=== PATIENT | male | born 1970 | race Two or more races ===

== ENCOUNTER 2024-12-26 07:54 | Inpatient (IN) | payer MEDICAID, SELFPAY ==
[2024-12-26] VITALS (58 sets, daily range): BP systolic 88–168; BP diastolic 64–111; PULSE 90–143; RESP 18–95; TEMP 36.2–40; O2SAT 91–97; BMI 28.3
--- NOTE | 2024-12-26 07:59 | XR_ITS ---
Examination: CT abdomen with intravenous contrast CT pelvis with intravenous contrast 2-D coronal reconstructions 2-D sagittal reconstructions Date and time of exam:December 26, 2024, 1019 hours, comparison June 20, 2023 INDICATIONS: Generalized abdominal pain and constipation beginning 4 days ago.. CTDI: vol (mGy) 7.99 DLP: (mGycm) 523 Technique: Multiple axial sections of the abdomen and pelvis have been obtained. 64 slice high-resolution scanner used. 3 mm axial sections have been obtained, post intravenous injection 60 cc Isovue-370 2-D sagittal, coronal reconstructions obtained. Low dose protocols were performed. One or more of the following dose reduction techniques were used; automated exposure control, adjustment of the mA and/or KV according to patient size, use of iterative reconstruction technique. Findings: No focal liver lesions Absent gallbladder No splenic or pancreatic mass. Normal adrenal glands. No renal or ureteral calculi, no hydronephrosis Markedly inflamed terminal ileum, coronal image 68 extending to the cecum with inflammation in the cecum No bowel obstruction There is partial visualization of the appendix but incomplete Additional ileal loop show inflammation No bowel obstruction Atrophic uterus Urinary bladder wall thickening which is irregular and measures up to 20 mm on axial image 226 Severe osteopenia IMPRESSION: Severe inflammation of the ileum especially the terminal ileal segment, highest on the differential list would be ileitis such as severe Crohn's disease Abnormal urinary bladder with irregular wall thickening inferiorly and posteriorly, differential would include cystitis, early bladder cancer not excluded, recommend urinary bladder sonography follow-up
--- NOTE | 2024-12-26 08:29 | EKG_ITS ---
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1970 Requested By: Soraya Rocha Order Number: [id number] Reading MD: Soraya Rocha Measurements Intervals [place] Rate: 141 P: MO: QRS: -29 QRSD: 85 T: 83 QT: 289 QTc: 443 Interpretive Statements ATRIAL FLUTTER/TACHYCARDIA WITH RAPID VENTRICULAR RESPONSE BORDERLINE LEFT AXIS DEVIATION [QRS AXIS < -20] ST ELEVATION, CONSIDER INFERIOR INJURY [MARKED ST ELEVATION W/O NORMALLY INFLECTED T-WAVE IN II/aVF] ACUTE GA Compared to ECG 06/22/2023 10:54:32 Myocardial infarct finding now present Sinus tachycardia no longer present Left ventricular hypertrophy no longer present ST (T wave) deviation still present /store/S0/[id number].pdf
[2024-12-26] MEDS: MORPHINE SULF INJ 10 MG/ML VIAL 5 MG IVP (08:45)
[2024-12-26] MEDS: ONDANSETRON INJ 2 MG/ML INJ 2 ML 4 MG IVP (08:45)
[2024-12-26 08:58] LABS: Basophils # (Auto) 0.0 Thou/mm3 (0.0-0.2); Basophils % (Auto) 0 % (0-2.5); Eosinophils # (Auto) 0.0 Thou/mm3 (0.0-0.5); Eosinophils % (Auto) 0 % (0-10); Hematocrit 51.6 % (41.0-53.0); Hemoglobin 16.9 g/dL (13.5-16.0); Immature Granulocytes Auto 0.10 Thou/mm3 (0.00-0.00); Lymphocytes # (Auto) 0.6 Thou/mm3 (1.0-4.8); Lymphocytes % (Auto) 3 % (10-50); Mean Corpuscular HGB Conc 32.8 g/dl (31.0-37.0); Mean Corpuscular Hemoglobin 26.2 pg (25.0-35.0); Mean Corpuscular Volume 80 fL (80-100); Monocytes # (Auto) 0.6 Thou/mm3 (0.0-0.8); Monocytes % (Auto) 3 % (0-12); Neutrophils # (Auto) 16.7 Thou/mm3 (1.8-7.7); Neutrophils % (Auto) 93 % (37-80); Nucleated Red Blood Cell # 0.00 Thou/mm3 (0.00-0.00); Nucleated Red Blood Cell % 0 /100 WBC (0); Platelet Count 250 Thou/mm3 (140-440); RDW Standard Deviation 39.9 fL (35.1-43.9); Red Blood Count 6.45 Miln/mm3 (4.50-5.90); White Blood Count 18.0 Thou/mm3 (3.8-10.6)
[2024-12-26 09:00] LABS: Lactate (Lactic Acid) 6.0 mMol/L (0.4-2.0)
[2024-12-26] MEDS: SODIUM CHLORIDE 0.9% 1000 ML 1,000 ML 999 ML IV ×2 (09:12→11:13)
[2024-12-26 09:22] LABS: Alanine Aminotransferase 25 U/L (10-49); Albumin, Serum 4.8 gm/dL (3.5-5.0); Albumin/Globulin Ratio 1.5 (1.2-2.2); Alkaline Phosphatase 127 U/L (46-116); Anion Gap 18 (7-16); Aspartate Amino Transferase 23 U/L (0-34); BUN/Creatinine Ratio 14 Ratio (12-20); Bilirubin,Total 1.4 mg/dL (0.3-1.2); Blood Urea Nitrogen 14 mg/dL (9-23); Calcium 10.2 mg/dL (8.3-10.6); Calcium (Corrected) 10.2 mg/dL (8.5-10.1); Carbon Dioxide 19.8 mMol/L (20.0-31.0); Chloride 99 mMol/L (98-107); Creatinine (Component) 1.0 mg/dL (0.6-1.3); Estimated Creatinine Clearance 88.3 mL/min (>60); Globulin 3.3 gm/dL (2.3-3.5); Glucose 366 mg/dL (74-106); Lipase 18 U/L (12-53); Magnesium 2.1 mg/dL (1.6-2.6); Osmolality,Calculated 289 (275-295); Potassium 4.0 mMol/L (3.4-5.1); Sodium 137 mMol/L (136-145); Total Protein 8.1 gm/dL (5.7-8.2); Troponin I 0.023 ng/mL (0.0-0.045); eGFR > 60 See Note
[2024-12-26 09:27] LABS: B-Type Natriuretic Peptide 149 pg/mL (0-100)
--- NOTE | 2024-12-26 09:46 | PD.EDABDPN ---
ED Abdominal Pain RME/HPI General Chief Complaint: Abdominal Pain Stated complaint: CONSTIPATION Time seen by provider: 12/26/24 07:59 Arrival date/time: 12/26/24 07:54 RME / HPI RME / HPI narrative: 54 year old male with history of hemorrhagic CVA with residual left-sided weakness, seizures, hypertension, diabetes, small bowel obstruction presents to the ED [facility] from [facility] for evaluation of constipation beginning 4 days ago. Per medics, [facility] staff state the patient has not had a bowel movement for 4 days and given laxatives without relief; they are concerned he may have a bowel obstruction. In the ED, patient reports mid abdominal pain with distention beginning 2 days ago. Accompanied by nausea and vomiting. Denies fevers, chills, chest pain, cough, shortness of breath, or urinary symptoms. Related Data Home Medications ?Medication ?Instructions ?Recorded ?Confirmed acetaminophen 325 mg tablet 2 tab PO Q6HR PRN Pain 12/21/17 06/25/23 (Tylenol) bisacodyl 10 mg rectal suppository 10 mg FL Q72H PRN Constipation 12/21/17 06/25/23 (Dulcolax (bisacodyl)) cholecalciferol (vitamin D3) 75 25 mcg PO QDAY 12/21/17 06/25/23 mcg (3,000 unit) tablet clonidine HCl 0.3 mg tablet 0.3 mg PO TID 12/21/17 06/25/23 Held on 06/29/23. Instructions: untill you see primary care physician folic acid 1 mg tablet 1 mg PO QDAY 12/21/17 06/25/23 insulin glargine 100 unit/mL 31 unit subcut QPM 12/21/17 06/25/23 subcutaneous solution lactulose 10 gram/15 mL oral 10 mg PO QDAY PRN Constipation 12/21/17 06/25/23 solution losartan 50 mg tablet 50 mg PO QDAY 12/21/17 06/25/23 magnesium hydroxide 400 mg/5 mL 30 ml PO Q72H PRN Constipation 12/21/17 06/25/23 oral suspension (Milk of Magnesia) melatonin 3 mg tablet 3 mg PO HS 12/21/17 06/25/23 multivitamin with minerals 1 tab PO QDAY 12/21/17 06/25/23 sennosides 8.6 mg-docusate sodium 2 tab PO BID PRN Constipation 12/21/17 06/25/23 50 mg tablet sodium phosphates 19 gram-7 118 ml FL Q72H PRN Constipation 12/21/17 06/25/23 gram/118 mL enema (Fleet Enema) thiamine HCl (vitamin B1) 100 mg 100 mg PO QDAY 12/21/17 06/25/23 tablet (Vitamin B-1) insulin regular human 100 unit/mL 4 unit subcut TID 06/25/23 06/25/23 injection solution (Novolin R Regular U-100 Insulin) insulin regular human 100 unit/mL See Rx Instructions .Route .COMPLEX 06/25/23 06/25/23 injection solution (Novolin R Regular U-100 Insulin) Previous Rx's ?Medication ?Instructions ?Recorded levetiracetam 1,000 mg tablet 1,000 mg PO BID #7 tabs 11/05/18 (Keppra) amlodipine 5 mg tablet 10 mg (2 x 5 mg) PO QDAY #30 tabs 06/29/23 Allergies Allergy/AdvReac Type Severity Reaction Status Date / Time adenosine Allergy Mild Rash Verified 12/26/24 08:19 vancomycin AdvReac Intermediate Redness of Verified 12/26/24 08:19 Skin Review of Systems Review of Systems Systems Reviewed: All systems reviewed, normal except as documented Past Medical History Past Medical History NEUROLOGIC: Positive Cerebrovascular Accident and Seizures CARDIAC: Positive Hypertension GASTROINTESTINAL: Positive Gastrointestinal Disorders and Obstructive Bowel GENITOURINARY: Positive Genitourinary Disorders and Renal Disease (ckd) ENDOCRINE: Positive Diabetes Mellitus Type 2 Social History SMOKING STATUS: Never smoker SECOND HAND EXPOSURE: No SUBSTANCE USE: does not use ED Exam Narrative Physical exam: GENERAL APPEARANCE: alert and oriented x 4, well-developed, well-nourished HEENT: Normocephalic, atraumatic; pupils equal, round, reactive to light; EOMI; mucous membranes pink, moist; oropharynx clear NECK: Supple LUNGS: CTABL; no wheezes, no rales, no rhonchi HEART: Regular rate, regular rhythm; normal S1, S2; no murmurs ABDOMEN: distended; normal BS; soft, mid-abdominal tenderness, no guarding, no rebound; no masses, no organomegaly, no hernia BACK: no CVA tenderness EXTREMITIES: atraumatic; no edema NEUROLOGIC: awake; alert and oriented x4; cranial nerves II-XII grossly intact PSYCHIATRIC: appropriate mood and affect SKIN: warm, dry, normal color; no rashes Course Quality Measures none Orders Category Date Time Status CT Screening NOW Care 12/26/24 07:59 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 12/26/24 08:29 Active EKG (ED ONLY) *Do not use* NOW Care 12/26/24 08:29 Completed EKG (ED ONLY) *Do not use* NOW Care 12/26/24 14:[address] abdomen pelvis w con Stat Exams 12/26/24 07:59 Completed EKG (ED Only) Stat Exams 12/26/24 08:29 Draft EKG (ED Only) Stat Exams 12/26/24 14:42 Draft B-Type Natriuretic Peptide Stat Lab 12/26/24 08:38 Completed Beta Hydroxybutyrate Routine Lab 12/26/24 14:32 Completed Blood Culture (Lab) Stat Lab 12/26/24 09:26 Received CBC Stat Lab 12/26/24 08:38 Completed Comprehensive Metabolic Panel Stat Lab 12/26/24 08:38 Completed Lactate (Lactic Acid) Stat Lab 12/26/24 08:38 Completed Lactic Acid, 3 HR Stat Lab 12/26/24 12:19 Completed Lipase Stat Lab 12/26/24 08:38 Completed Magnesium Stat Lab 12/26/24 08:38 Completed Procalcitonin Stat Lab 12/26/24 09:26 Completed Troponin I Stat Lab 12/26/24 08:38 Completed Troponin I Stat Lab 12/26/24 14:32 Completed UA, C/S IF [Urinalysis, C/S if Indicated] Stat Lab 12/26/24 23:59 Ordered Acetaminophen Ivpb [Ofirmev Inj] Med 12/26/24 12:50 Discontinued 1,000 mg in 100 ml IV X1 Morphine Inj Med 12/26/24 08:29 Discontinued 5 mg IVP X1 ONE Ondansetron Inj [Zofran Inj] Med 12/26/24 08:29 Discontinued 4 mg IVP X1 ONE Piper/Tazo 3.375 gm Premix [Zosyn] Med 12/26/24 11:02 Discontinued 3.375 gm in 50 ml IV X1 Sodium Chloride 0.9% 1000 ml [Ns] 1,000 ml Med 12/26/24 09:04 Discontinued IV 999 mls/hr Sodium Chloride 0.9% 1000 ml [Ns] 1,000 ml Med 12/26/24 11:02 Discontinued IV 999 mls/hr Vital Signs Vital signs: Vital Signs Temperature 98.4 F 12/26/24 08:42 Pulse Rate 137 H 12/26/24 08:42 Respiratory Rate 20 12/26/24 08:42 Blood Pressure 158/101 H 12/26/24 08:42 Pulse Oximetry (%) 97 12/26/24 08:42 Oxygen Delivery Method Room Air 12/26/24 08:42 Pulse ox is 97% on room air which is adequate. Abdominal Pain MDM MDM Narrative MDM Narrative:: ISugey am scribing for and in the presence of Dr. Friedman. Repeat EKG @ 15:05h: Sinus tachycardia, rate 122, ST depression seen in previous ekg have resolved, slight ST elevation in lead III. Patient data External records reviewed:: [facility] previous records (I reviewed admission from 06/22/2023 through 06/29/2023 ), EMS form and Penitentiary records (I reviewed pmhx and medication list from [facility] ) Clinical information provided by:: patient and EMS Social determinants that could affect healthcare access:: housing ([place] resident ) Patient has the following chronic illnesses:: hemorrhagic CVA with residual left-sided weakness, seizures, hypertension, diabetes, small bowel obstruction How is presenting disease/condition affected by chronic disease/condition?: exacerbated by Evaluation data The following diagnostics were reviewed and interpreted by me:: lab results, radiology exam(s) and EKG tracing(s) (12/26/2204 @ 08:32 AM. Sinus tachycardia, rate 140, mild ST depression lead I aVL V4 through V6, ST depressions consisted with possible rate base ischemia, slight ST elevation in lead II. ) Lab and/or radiology exams considered but not ordered:: None Interpretation Summary: Ordering Physician: Soraya Friedman MD Date of Service: 12/26/24 Procedure(s): CT abdomen pelvis w con Accession Number(s): [id number] cc: Imtiaz Mac MD; NO PRIMARY/FAMILY,PHYSICIAN; Soraya Friedman MD~ Examination: CT abdomen with intravenous contrast CT pelvis with intravenous contrast 2-D coronal reconstructions 2-D sagittal reconstructions Date and time of exam:December 26, 2024, 1019 hours, comparison June 20, 2023 INDICATIONS: Generalized abdominal pain and constipation beginning 4 days ago.. CTDI: vol (mGy) 7.99 DLP: (mGycm) 523 Technique: Multiple axial sections of the abdomen and pelvis have been obtained. 64 slice high-resolution scanner used. 3 mm axial sections have been obtained, post intravenous injection 60 cc Isovue-370 2-D sagittal, coronal reconstructions obtained. Low dose protocols were performed. One or more of the following dose reduction techniques were used; automated exposure control, adjustment of the mA and/or KV according to patient size, use of iterative reconstruction technique. Findings: No focal liver lesions Absent gallbladder No splenic or pancreatic mass. Normal adrenal glands. No renal or ureteral calculi, no hydronephrosis Markedly inflamed terminal ileum, coronal image 68 extending to the cecum with inflammation in the cecum No bowel obstruction There is partial visualization of the appendix but incomplete Additional ileal loop show inflammation No bowel obstruction Atrophic uterus Urinary bladder wall thickening which is irregular and measures up to 20 mm on axial image 226 Severe osteopenia IMPRESSION: Severe inflammation of the ileum especially the terminal ileal segment, highest on the differential list would be ileitis such as severe Crohn's disease Abnormal urinary bladder with irregular wall thickening inferiorly and posteriorly, differential would include cystitis, early bladder cancer not excluded, recommend urinary bladder sonography follow-up Dictated By: Imtiaz Mac MD Signed By: <Electronically signed by Imtiaz Mac MD in [place]> 12/26/24 1109 Medications / Prescriptions Medications or Prescriptions considered but not ordered:: None Medication administrations:: Medication Administration History Acetaminophen (Acetaminophen 325 Mg Tablet) 650 mg PO Q6H PRN PRN Reason: Fever >101.5 and pain (1-3) Stop: 01/25/25 15:17 Dextrose (Dextrose 50%-Water Inj 50 Ml Syringe) 25 ml IV Q15MIN PRN PRN Reason: BG 50-70 responsive npo pt Stop: 01/25/25 15:35 Dextrose (Dextrose 50%-Water Inj 50 Ml Syringe) 50 ml IV Q15MIN PRN PRN Reason: BG <50 OR BG <70 & pt unresponsive Stop: 01/25/25 15:35 Glucagon (Glucagon Inj 1 Mg Vial) 1 mg IM Q15MIN PRN PRN Reason: BG <70, and no IV access Heparin Sodium (Porcine) (Heparin Sod Inj 5000 Unit/Ml Vial) 5,000 unit SC Q8HR GIOVANNI Stop: 01/09/25 15:29 Last Admin: 12/26/24 17:15 Dose: 5,000 unit Documented By: AI Co-signed By: RONEY Hydromorphone HCl (Hydromorphone Inj 2 Mg/Ml Vial) 1 mg IVP Q6HR PRN PRN Reason: PAIN SCALE 4-10(Mod-Sev Stop: 12/31/24 15:30 Piperacillin/Tazobactam/Dextrose (Zosyn) 3.375 gm in 50 mls @ 100 mls/hr IV Q6HR GIOVANNI Stop: 01/02/25 17:59 Lactated Ringer's (Lactated Ringers) 1,000 mls @ 100 mls/hr IV .Q10H GIOVANNI Stop: 01/25/25 16:45 Insulin Degludec (Insulin Degludec 5 Unit/0.05 Ml (Per 5 Units)) 10 unit SC HS [facility] Stop: 01/25/25 20:59 Insulin Human Lispro (Insulin Lispro (Admelog) 1 Unit/0.01 Ml Unit) 0 unit SC Q6HR GIOVANNI; Protocol Stop: 01/25/25 17:59 Lactulose (Lactulose Syrup 20 Gm/30 Ml Udc) 10 gm PO QDAY GIOVANNI; Protocol Stop: 01/25/25 15:29 Ondansetron HCl (Ondansetron Inj 2 Mg/Ml Inj 2 Ml) 4 mg IVP Q6HR PRN; Protocol PRN Reason: NAUSEA OR VOMITING Stop: 01/25/25 15:33 Pantoprazole Sodium (Pantoprazole Inj 40 Mg Vial) 40 mg IVP QDAY GIOVANNI Stop: 01/25/25 15:44 Last Admin: 12/26/24 17:16 Dose: 40 mg Documented By: AI Discontinued Medications Sodium Chloride (Ns) 1,000 mls @ 999 mls/hr IV .Q1H1M ONE Stop: 12/26/24 10:04 Last Infusion: 12/26/24 10:13 Dose: Infused Documented By: Admin: 12/26/24 09:12 Dose: 999 mls/hr Documented By: DAYANARA Piperacillin/Tazobactam/Dextrose (Zosyn) 3.375 gm in 50 mls @ 100 mls/hr IV X1 ONE Stop: 12/26/24 11:31 Last Infusion: 12/26/24 12:06 Dose: Infused Documented By: Admin: 12/26/24 11:13 Dose: 100 mls/hr Documented By: DANIEL Sodium Chloride (Ns) 1,000 mls @ 999 mls/hr IV .Q1H1M ONE Stop: 12/26/24 12:02 Last Infusion: 12/26/24 12:15 Dose: Infused Documented By: Admin: 12/26/24 11:13 Dose: 999 mls/hr Documented By: DANIEL Acetaminophen (Ofirmev Inj) 1,000 mg in 100 mls @ 250 mls/hr IV X1 ONE Stop: 12/26/24 13:13 Last Infusion: 12/26/24 13:33 Dose: Infused Documented By: Admin: 12/26/24 13:09 Dose: 250 mls/hr Documented By: DANIEL Piperacillin/Tazobactam/Dextrose (Zosyn) 3.375 gm in 50 mls @ 12.5 mls/hr IV Q8HR [facility] Stop: 01/02/25 21:59 Lactated Ringer's (Lactated Ringers) 500 mls @ 999 mls/hr IV .Q31M ONE Stop: 12/26/24 15:55 Last Infusion: 12/26/24 17:51 Dose: Infused Documented By: Admin: 12/26/24 17:16 Dose: 999 mls/hr Documented By: AI Lactated Ringer's (Lactated Ringers) 1,000 mls @ 75 mls/hr IV .[id number] [facility] Stop: 01/25/25 15:43 Morphine Sulfate (Morphine Sulf Inj 10 Mg/Ml Vial) 5 mg IVP X1 ONE Stop: 12/26/24 08:30 Last Admin: 12/26/24 08:45 Dose: 5 mg Documented By: AI Ondansetron HCl (Ondansetron Inj 2 Mg/Ml Inj 2 Ml) 4 mg IVP X1 ONE Stop: 12/26/24 08:30 Last Admin: 12/26/24 08:45 Dose: 4 mg Documented By: AI Sennosides (Senna Tablet) 2 tab PO BID GIOVANNI; Protocol Stop: 01/25/25 20:59 See above Consultations Consultation(s) initiated? (list below): Yes Consultation #1 (Physician, Specialty, Details): I spoke with residents working with Dr. Pop. Discussed patients PMHx, HPI, ED course, exam findings, labs, and radiology results. The hospitalist agree to accept the patient for admission. Diagnosis Differential diagnosis abdominal pain: abdominal pain, constipation and small bowel obstruction Most likely diagnosis given after review of the tests above:: Ileitis Sepsis Admission Indicated Admission indicated?: indicated Admission Request Was there a request for admission?: Yes Admission Attestation Admission request attestation: Discussed case with [] from Hospitalist service regarding admission. Discussed patients ED course, exam findings, labs, and radiology results. The Hospitalist [agrees,declines] to accept the patient for admission. Disposition Plan Disposition Plan: Admit Discharge Plan Plan Patient Disposition: Admit Acute Care w/in Hospital Problem List Clinical Impression: Ileitis, Sepsis
[2024-12-26 10:09] LABS: Procalcitonin 3.81 ng/ml (0.0-0.49)
--- NOTE | 2024-12-26 11:03 | PC.NURSE ---
PATIENT BACK FROM CT SCAN. PATIENT'S HEART RATE STILL IN 130'S. PATIENT'S BLOOD PRESSURE ALSO ELEVATED 160/104. DR. RANDLE MADE AWARE. NEW ORDERS RECEIVED.
[2024-12-26] MEDS: PIPER/TAZO 3.375 GM PREMIX 3.375 GM/50 ML BAG IV ×2 (11:13→18:35)
[2024-12-26 11:52] LABS: Reflex Lactate? Y
[2024-12-26 12:34] LABS: Lactic Acid, 3 HR 5.5 mMol/L (0.4-2.0)
--- NOTE | 2024-12-26 12:38 | PC.NURSE ---
DR. RANDLE MADE AWARE PATIENT'S TEMPERATURE ELEVATED 104.0
[2024-12-26] MEDS: ACETAMINOPHEN IVPB 1,000 MG/100 ML VIAL 250 MG IV (13:09)
--- NOTE | 2024-12-26 14:42 | EKG_ITS ---
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
[2024-12-26 14:57] LABS: Beta Hydroxybutyrate 0.7 mmol/L (<0.6)
[2024-12-26 15:26] LABS: Troponin I 0.040 ng/mL (0.0-0.045)
--- NOTE | 2024-12-26 15:43 | ESHP_ITS ---
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 Denies recent sick contacts, nausea, vomiting, blood in stools. In the ED, patient noted to have tachycardia and febrile episode of 104 ?F. Labs at the time of admission are significant for WBC 18, hemoglobin 16.9, bicarb 19.8, anion gap 18, glucose 366, lactate 6, total bilirubin 1.4, ALP 127, Pro-Franki 3.81. Abdomen/pelvis CT showed severe inflammation of the ileum especially the terminal ileal segment. Abnormal urinary bladder with irregular wall thickening inferiorly and posteriorly. EKG showed sinus tachycardia with no ST and T wave changes. Sepsis alert was called and patient was given 2 L of NS bolus, a dose of 5 mg morphine, ondansetron in the ED. Pain is getting of severe sepsis secondary to GI infection. Patient was given 500 mL bolus of LR and started on maintenance fluids. Will continue Zosyn. Blood culture, stool for culture, WBC, calprotectin, Giardia was sent, will follow-up with the results. General surgeon, Dr. Degroot was consulted and reported no need of any surgical intervention as of now. Patient is currently on n.p.o. and will assess him tomorrow and if the abdominal tenderness and distention is getting better, will start on diet Patient plan of care was discussed with the attending physician, Dr. Donn Downing, PGY2 Documentation for date of: 12/26/24 HPI History of Present Illness History of present illness: Patient is a Montserratian speaking 54 year old male with PMH of hemorrhagic CVA (2017) with residual left sided weakness, SBO, seizures, hypertension, insulin dependent diabetes, and gangrenous cholecystitis s/p lap korina (06/2023) who presents on 12/26 for constipation and RLQ pain for the pasts 4 days. Patient is Montserratian speaking and understands some Estonian but is still a very poor historian. Reports Endorses nausea and a couple episodes of emesis today, non bilious and non bloody. Last meal was breakfast this morning. Reports he is able to pass gas. Denies sick contacts or eating usual food recently. Denies fever, chills, chest pain, shortness of breath, dysuria, hematochezia, and diarrhea. Has not had a colonoscopy done. No personal history of inflammatory bowel disease or cardiac disease. No family history of colon cancer. ED Course: -Initial vitals: BP 158/101, HR 137, RR 20, temp 98.4F -> 104 F, 97% RA -Labs: WBC 18.0, Hgb 16.9, PT 12.4, sodium 137, potassium 4.0, bicarb 19.8, glucose 366, lactate 6.0, corrected calcium 10.2, total bilirubin 1.4, AST& ALT WNL, alk phos 127, troponin WNL, BNP 149, procalcitonin 3.1, beta hydroxybutyrate 0.7 EKG: sinus tachycardia with no ST and T wave changes -Imaging: CT AP with contrast shows severe inflammation of terminal ileal segment with concern for ileitis and abdominal wall urinary bladder with irregular wall thickening inferiorly and posteriorly, c/f cystitis -Given in ED: IV Tylenol x 1, morphine 5 mg x 1, Zofran 4mg x 1, Zosyn injection x 1, 2 L NS bolus -Patient was admitted for sepsis likely seocndary to GI infection with accompanying high anion gap metabolic acidosis and lactic acidosis. Review of Systems Review of systems otherwise negative except what is mentioned above. Past Medical History: As above. Family History: Difficult to obtain as patient is a poor historian. No family history of colon cancer. Surgical History: Laproscopic cholecystectomy in June 2023 Social History: Denies history of smoking, denies current alcohol use, denies recreational drug use Current Medications: Amlodipine 10 mg daily, vitamin D3 25 mcg daily, clonidine 0.2 mg 3 times daily, folic acid 1 mg daily, insulin glargine 33 units at bedtime, Keppra 1000 mg twice daily, losartan 50 mg daily, melatonin 3 mg at bedtime, NovoLog, vitamin B1 100 mg daily (Source: [facility] med list) Allergies: adenosine (rash), vancomycin (skin redness) Exam Vital Signs Temp Pulse Resp BP Pulse Ox O2 Del Method O2 Flow Rate 104.0 F H 117 H 20 122/64 94 L Room Air 2 12/26/24 12:37 12/26/24 15:34 12/26/24 15:34 12/26/24 14:16 12/26/24 14:16 12/26/24 14:16 12/26/24 09:07 Narrative Exam Physical Exam General: [place]serratian speaking elderly male. Awake and in no acute distress. Conversational and non-toxic appearing. HEENT: Normocephalic, atraumatic, mucous membranes moist. Heart: Tachycardic. Regular rate and rhythm, normal S1 and S2, no murmurs appreciated. Lungs: Clear to auscultation with no wheezing or crackles. Abdomen: Soft, mildy distended, diffuse generalized tenderness out of proportion , positive bowel sounds. No guarding or rebound tenderness. Neurologic: Alert and oriented x3. LLE and LUE weakness, chronic. Sensation appears to be intact in all extremities. Extremities: No lower extremity edema bilaterally. Skin: No rash or ecchymoses. Results: Labs 12/27/24 05:38 12/27/24 05:38 Labs: Short CBC 12/26/24 Range/Units 08:38 WBC 18.0 H (3.8-10.6) Thou/mm3 Hgb 16.9 H (13.5-16.0) g/dL Hct 51.6 (41.0-53.0) % Plt Count 250 (140-440) Thou/mm3 BMP 12/26/24 08:38 Sodium 137 Potassium 4.0 Chloride 99 Carbon Dioxide 19.8 L BUN 14 Creatinine 1.0 Glucose 366 H Calcium 10.2 Cardiac Enzymes 12/26/24 12/26/24 Range/Units 08:38 14:32 Troponin I 0.023 0.040 (0.0-0.045) ng/mL Liver Function 12/26/24 Range/Units 08:38 Total Bilirubin 1.4 H (0.3-1.2) mg/dL AST 23 (0-34) U/L ALT 25 (10-49) U/L Alkaline Phosphatase 127 H (46-116) U/L Albumin 4.8 (3.5-5.0) gm/dL Quality Measures Quality Measures none Medications Home Medications and Allergies Home Medications ?Medication ?Instructions ?Recorded ?Confirmed ?Type acetaminophen 325 mg tablet 2 tab PO Q6HR PRN Pain 12/26/24 History (Tylenol) bisacodyl 10 mg rectal suppository 10 mg SD Q72H PRN C onstipation 12/21/17 12/26/24 History (Dulcolax (bisacodyl)) cholecalciferol (vitamin D3) 75 25 mcg PO QDAY 8 12/26/24 History mcg (3,000 unit) tablet clonidine HCl 0.3 mg tablet 0.3 mg PO TID 12/21/1706/20 History Held on 06/29/23. Instructions: untill you see primary care physician folic acid 1 mg tablet 1 mg PO QDAY 12/21/17 History insulin glargine 100 unit/mL 31 unit subcut QPM 12/26/24 History subcutaneous solution lactulose 10 gram/15 mL oral 10 mg PO QDAY PRN Constip ation 12/21/17 12/26/24 History solution losartan 50 mg tablet 50 mg PO QDAY 12/21/1712/26 History magnesium hydroxide 400 mg/5 mL 30 ml PO Q72H PRN Cons tipation 12/21/17 12/26/24 History oral suspension (Milk of Magnesia) melatonin 3 mg tablet 3 mg PO HS 12/21/17 12/26/24 History multivitamin with minerals 1 tab PO QDAY 12/21/17 09/06/20 History sennosides 8.6 mg-docusate sodium 2 tab PO BID PRN Con stipation 12/21/17 12/26/24 History 50 mg tablet sodium phosphates 19 gram-7 118 ml SD Q72H PRN Constip ation 12/21/17 12/26/24 History gram/118 mL enema (Fleet Enema) insulin regular human 100 unit/mL 4 unit subcut TID 12/26/24 History injection solution (Novolin R Regular U-100 Insulin) insulin regular human 100 unit/mL See Rx Instructions .Route .COMPLEX 06/25/23 12/26/24 History injection solution (Novolin R Regular U-100 Insulin) Allergies Allergy/AdvReac Type Severity Reaction Status Date / Time adenosine Allergy Mild Rash Verified 12/26/24 08:19 vancomycin AdvReac Intermediate Redness of Verified 12/26/24 08:19 Skin Visit Medications Acetaminophen (Acetaminophen 325 Mg Tablet) 650 mg PO Q6H PRN PRN Reason: Fever >101.5 and pain (1-3) Stop: 01/25/25 15:17 Dextrose (Dextrose 50%-Water Inj 50 Ml Syringe) 25 ml IV Q15MIN PRN PRN Reason: BG 50-70 responsive npo pt Stop: 01/25/25 15:35 Dextrose (Dextrose 50%-Water Inj 50 Ml Syringe) 50 ml IV Q15MIN PRN PRN Reason: BG <50 OR BG <70 & pt unresponsive Stop: 01/25/25 15:35 Glucagon (Glucagon Inj 1 Mg Vial) 1 mg IM Q15MIN PRN PRN Reason: BG <70, and no IV access Heparin Sodium (Porcine) (Heparin Sod Inj 5000 Unit/Ml Vial) 5,000 unit SC Q8HR GIOVANNI Stop: 01/09/25 15:29 Hydromorphone HCl (Hydromorphone Inj 2 Mg/Ml Vial) 1 mg IVP Q6HR PRN PRN Reason: PAIN SCALE 4-10(Mod-Sev Stop: 12/31/24 15:30 Lactated Ringer's (Lactated Ringers) 500 mls @ 999 mls/hr IV .Q31M ONE Stop: 12/26/24 15:55 Piperacillin/Tazobactam/Dextrose (Zosyn) 3.375 gm in 50 mls @ 100 mls/hr IV Q6HR GIOVANNI Stop: 01/02/25 17:59 Insulin Degludec (Insulin Degludec 5 Unit/0.05 Ml (Per 5 Units)) 10 unit SC HS GIOVANNI Stop: 01/25/25 20:59 Insulin Human Lispro (Insulin Lispro (Admelog) 1 Unit/0.01 Ml Unit) 0 unit SC Q6HR GIOVANNI; Protocol Stop: 01/25/25 17:59 Lactulose (Lactulose Syrup 20 Gm/30 Ml Udc) 10 gm PO QDAY GIOVANNI; Protocol Stop: 01/25/25 15:29 Ondansetron HCl (Ondansetron Inj 2 Mg/Ml Inj 2 Ml) 4 mg IVP Q6HR PRN; Protocol PRN Reason: NAUSEA OR VOMITING Stop: 01/25/25 15:33 Pantoprazole Sodium (Pantoprazole Inj 40 Mg Vial) 40 mg IVP QDAY GIOVANNI Stop: 01/25/25 15:44 Discontinued Medications Sodium Chloride (Ns) 1,000 mls @ 999 mls/hr IV .Q1H1M ONE Stop: 12/26/24 10:04 Last Infusion: 12/26/24 10:13 Dose: Infused Piperacillin/Tazobactam/Dextrose (Zosyn) 3.375 gm in 50 mls @ 100 mls/hr IV X1 ONE Stop: 12/26/24 11:31 Last Infusion: 12/26/24 12:06 Dose: Infused Sodium Chloride (Ns) 1,000 mls @ 999 mls/hr IV .Q1H1M ONE Stop: 12/26/24 12:02 Last Infusion: 12/26/24 12:15 Dose: Infused Acetaminophen (Ofirmev Inj) 1,000 mg in 100 mls @ 250 mls/hr IV X1 ONE Stop: 12/26/24 13:13 Last Infusion: 12/26/24 13:33 Dose: Infused Piperacillin/Tazobactam/Dextrose (Zosyn) 3.375 gm in 50 mls @ 12.5 mls/hr IV Q8HR GIOVANNI Stop: 01/02/25 21:59 Morphine Sulfate (Morphine Sulf Inj 10 Mg/Ml Vial) 5 mg IVP X1 ONE Stop: 12/26/24 08:30 Last Admin: 12/26/24 08:45 Dose: 5 mg Ondansetron HCl (Ondansetron Inj 2 Mg/Ml Inj 2 Ml) 4 mg IVP X1 ONE Stop: 12/26/24 08:30 Last Admin: 12/26/24 08:45 Dose: 4 mg Sennosides (Senna Tablet) 2 tab PO BID [facility]; Protocol Stop: 01/25/25 20:59 Assessment & Plan Plan Patient is a 54 year old male with PMH of hemorrhagic CVA (2017) with residual left sided weakness, SBO, seizures, hypertension, insulin dependent diabetes, and gangrenous cholecystitis s/p lap korina (06/2023) who presents on 12/26 for constipation and RLQ pain for the pasts 4 days, admitted for sepsis likely secondary to GI infection with accompanying HAGMA and lactic acidosis. #Sepsis 2/2 #Likely GI infection #HAGMA #Lactic acidosis, improving On admission, meets 3/4 SIRS criteria: tachycardic, temp increased to 104F, WBC 18,000. Anion gap 18 and bicarb 19.8. Procalc elevated at 3.1. Admission lactic acid elevated 6.0 -> 5.5 with fluid bolus. Beta hydroxybutyrate mildly increased at 0.7 and glucose 366, low concern for DKA/HHS. CT A/P 12/26 shows severe termial ilietis anc cystitis, no bowel obstruction observed. S/p NS bolus x2 and 500 cc LR with mild improvement in lactic acid Plan: - Started on IV Zosyn due concern for SBP - Started another 1L bolus LR - Trend lactate q4hr - Ordered blood culture, stool culture, Giardia - Pending UA for alternative source of sepsis/infection - Consulted GI Dr. Oliveira, appreciate recommendations - NPO for now, consider restarting diet tomorrow after evaluation #Constipation #Generalized abdominal pain #N/V #c/f SBO given history History of SBO, no surgeries done. Last bowel movement 4 days ago, reports only has bowel movements once a week. Able to pass gas. As above, CT A/P did not note obstruction, only ilietis. Patient denies blood in stool or diarrhea as of late. Denies recent sick contacts or usual food exposure. Has extensive prn bowel regimen at rehab center (has been there since 06/2023 for residual left sided weakness from CVA). Consulted surgeon Dr. Degroot, not concerned for SBO, no need for surgical intervention at this time. Plan: - Hold bowel regimen for now, until can tolerate diet - Pain regimen: Tylenol and IV dilaudid 1mg q6hr prn - Consulted GI Dr. Oliveira, appreciate recommendations - NPO, will reassess tomorrow - IV protonix 40 mg, IV Zofran 4mg prn #Hypertension Taking amlodipine 10 mg daily, clonidien 0.3 mg TID, and losartan 50 mg daily. BP 158/101 on admission, improved now to 122/64 after pain control. Plan: - Hold home meds at this time, restart if becomes hypertensive #Insulin dependent DM Takes insuline glargine 33 units and Novolog at rehab center. Last meal breakfast, currently NPO. Plan: - Started on insulin degludec 10 HS as patient is NPO - SSI - Monitor glucose and insulin requirements tomorrow, will adjust accordingly #Hx seizures Home med Keppra 1000mg BID. Plan: - Consider restarting Keppra tomorrow when no longer NPO Health Maintenance Disposition: management of sepsis secondary to GI infection, HAGMA, lactic acidosis DVT prophylaxis: Heparin SQ GI prophylaxis: IV protonix 40 mg daily Bowel regimen: Hold for now, TBD Diet: NPO CODE STATUS: FULL Patient plan of care was discussed with the resident, Dr. Downing, and attending physician, Dr. Pop. Patience Mckinnon, PGY-1 Attending Provider Attestation/Addendum I, Lexie Pop, DO, attest that I was physically present for the levin portions of the service and evaluated the patient with the resident and I reviewed and discussed the case with the resident and agree with the resident's findings and plans of care as documented above Patient is a 54-year-old male with past medical history of hemorrhagic CVA with left hemiplegia, SBO, seizures, hypertension and type II IDDM who was brought to ED from shelter facility due to complaint of abdominal pain. Patient reports that he has been constipated since Wednesday. He points to pain particularly in his lower abdomen. However, patient is tender to palpation diffusely. It is mildly distended on exam. He had 1 episode of nonbilious nonbloody vomiting upon presentation to the ED. He denies any decreased oral intake, and ate breakfast this morning. Patient states that he is able to pass flatus, but is also often constipated and goes about once a week to the bathroom. On presentation in the ED, patient was noted to be tachycardic with heart rate of 137 and a temperature of 104. Patient is comfortable on room air. Blood pressure is significantly elevated 158/101. He has a leukocytosis of 18 and a lactic acid of 6, which in turn is likely the cause of his anion gap metabolic acidosis.. CT abdomen pelvis was done in the ED reveals severe inflammation of the terminal ileal segment concerning for ileitis. This bladder also appears to be quite thick concerning for cystitis. Due to significant pain on exam, case was discussed with surgeon who reviewed CT abdomen and pelvis and does not show any perforation or obstruction. Recommends a GI consult and IV antibiotics. Will admit patient to telemetry for further workup and medical management of sepsis secondary to ileitis and will start patient on IV Zosyn, IV fluids and pain control. Will keep n.p.o. for bowel rest at this time.
[2024-12-26] MEDS: HEPARIN SOD INJ 5000 UNIT/ML VIAL SC ×2 (17:15→22:19)
[2024-12-26] MEDS: RINGERS LACTATED 500 ML 500 ML 999 ML IV (17:16)
[2024-12-26] MEDS: INSULIN LISPRO (AdmeLOG) 1 UNIT/0.01 ML UNIT SC (18:34)
[2024-12-26] MEDS: RINGERS LACTATED 1000 ML 1,000 ML 100 ML IV (18:35)
[2024-12-26 18:47] LABS: Collection Type, Urine Clean Catch
[2024-12-26 18:53] LABS: Albumin, Serum 3.9 gm/dL (3.5-5.0); Anion Gap 14 (7-16); BUN/Creatinine Ratio 19 Ratio (12-20); Blood Urea Nitrogen 13 mg/dL (9-23); Calcium 8.6 mg/dL (8.3-10.6); Calcium (Corrected) 8.7 mg/dL (8.5-10.1); Carbon Dioxide 20.5 mMol/L (20.0-31.0); Chloride 104 mMol/L (98-107); Creatinine (Component) 0.7 mg/dL (0.6-1.3); Estimated Creatinine Clearance 126.1 mL/min (>60); Glucose 339 mg/dL (74-106); Osmolality,Calculated 288 (275-295); Phosphorous 2.1 mg/dL (2.4-5.1); Potassium 3.9 mMol/L (3.4-5.1); Sodium 138 mMol/L (136-145); eGFR > 60 See Note
[2024-12-26 19:19] LABS: Bilirubin,Urine Negative (Negative); Blood,Urine 2+ (Negative); Budding Yeast,Urine Present; Clarity,Urine Clear (Clear/Hazy); Color,Urine Yellow (Lt Yel-Yel); Glucose, Urine 4+ (Negative); Ketones,Urine 2+ (Negative); Leukocyte Esterase,Urine Negative (Negative); Nitrite,Urine Negative (Negative); PH,Urine 6.0 (5.0-7.0); Protein,Urine 1+ (Neg - Trace); RBC,Urine 26 /hpf (0-3); Squamous Epithelial Cell,Urine 1 /hpf (0-5); Urobilinogen,Urine 3.0 mg/dL (0.0-1.0); WBC,Urine 27 /hpf (0-5)
[2024-12-26 19:29] LABS: Culture Indicated,Urine Yes; Specific Gravity,Urine 1.020 (1.001-1.035)
--- NOTE | 2024-12-26 20:25 | PD.IMCONS ---
HPI Data of Consult Requesting Physician: Lexie Pop DO Primary Care Provider: Physician No Primary/Family Consult Narrative Reason for consult: pain abdomen abnormal CT AP History of present illness: 54-year-old male transferred from the detention with complaints of abdominal pain abdominal distention unable to go to the bathroom accompanied by nausea vomiting CT scan of the abdomen pelvis showed with contrast inflammatory changes in the terminal ileum stool burden Patient was subsequently admitted Patient does have a history of hemorrhagic CVA with residual left-sided motor weakness seizure disorder hypertension diabetes mellitus and previous history of small bowel obstruction conservatively managed cc:: cc: Lexie Pop DO Review of Systems Review of Systems Systems Reviewed: All systems reviewed, normal except as documented Past Medical History Surgical History OTHER SURGICAL HX: As in the history of present illness Meds Home Medications and Allergies Home Medications ?Medication ?Instructions ?Recorded ?Confirmed ?Type acetaminophen 325 mg tablet 2 tab PO Q6HR PRN Pain 12/21/17 06/25/23 History (Tylenol) bisacodyl 10 mg rectal suppository 10 mg ID Q72H PRN Constipation 12/21/17 06/25/23 History (Dulcolax (bisacodyl)) cholecalciferol (vitamin D3) 75 25 mcg PO QDAY 12/21/17 06/25/23 History mcg (3,000 unit) tablet clonidine HCl 0.3 mg tablet 0.3 mg PO TID 12/21/17 06/25/23 History Held on 06/29/23. Instructions: untill you see primary care physician folic acid 1 mg tablet 1 mg PO QDAY 12/21/17 06/25/23 History insulin glargine 100 unit/mL 31 unit subcut QPM 12/21/17 06/25/23 History subcutaneous solution lactulose 10 gram/15 mL oral 10 mg PO QDAY PRN Constipation 12/21/17 06/25/23 History solution losartan 50 mg tablet 50 mg PO QDAY 12/21/17 06/25/23 History magnesium hydroxide 400 mg/5 mL 30 ml PO Q72H PRN Constipation 12/21/17 06/25/23 History oral suspension (Milk of Magnesia) melatonin 3 mg tablet 3 mg PO HS 12/21/17 06/25/23 History multivitamin with minerals 1 tab PO QDAY 12/21/17 06/25/23 History sennosides 8.6 mg-docusate sodium 2 tab PO BID PRN Constipation 12/21/17 06/25/23 History 50 mg tablet sodium phosphates 19 gram-7 118 ml ID Q72H PRN Constipation 12/21/17 06/25/23 History gram/118 mL enema (Fleet Enema) thiamine HCl (vitamin B1) 100 mg 100 mg PO QDAY 12/21/17 06/25/23 History tablet (Vitamin B-1) insulin regular human 100 unit/mL 4 unit subcut TID 06/25/23 06/25/23 History injection solution (Novolin R Regular U-100 Insulin) insulin regular human 100 unit/mL See Rx Instructions .Route .COMPLEX 06/25/23 06/25/23 History injection solution (Novolin R Regular U-100 Insulin) Allergies Allergy/AdvReac Type Severity Reaction Status Date / Time adenosine Allergy Mild Rash Verified 12/26/24 08:19 vancomycin AdvReac Intermediate Redness of Verified 12/26/24 08:19 Skin Exam Vital Signs Temp Pulse Resp BP Pulse Ox O2 Del Method O2 Flow Rate 97.1 F 121 H 23 H 143/100 H 96 Room Air 2 12/26/24 20:15 12/26/24 20:15 12/26/24 20:15 12/26/24 20:15 12/26/24 20:15 12/26/24 20:15 12/26/24 09:07 Constitutional Comments: Chronically ill-appearing Routine Respiratory Exam Comments: Normal to auscultation Routine Abdominal Exam Comments: Positive bowel sounds somewhat distended tenderness Results Labs 12/26/24 08:38 12/26/24 18:28 Labs: Short CBC 12/26/24 Range/Units 08:38 WBC 18.0 H (3.8-10.6) Thou/mm3 Hgb 16.9 H (13.5-16.0) g/dL Hct 51.6 (41.0-53.0) % Plt Count 250 (140-440) Thou/mm3 BMP 12/26/24 12/26/24 08:38 18:28 Sodium 137 138 Potassium 4.0 3.9 Chloride 99 104 Carbon Dioxide 19.8 L 20.5 BUN 14 13 Creatinine 1.0 0.7 Glucose 366 H 339 H Calcium 10.2 8.6 D Cardiac Enzymes 12/26/24 12/26/24 Range/Units 08:38 14:32 Troponin I 0.023 0.040 (0.0-0.045) ng/mL Liver Function 12/26/24 12/26/24 Range/Units 08:38 18:28 Total Bilirubin 1.4 H (0.3-1.2) mg/dL AST 23 (0-34) U/L ALT 25 (10-49) U/L Alkaline Phosphatase 127 H (46-116) U/L Albumin 4.8 3.9 D (3.5-5.0) gm/dL Urine 12/26/24 Range/Units 18:40 Urine Color Yellow (Lt Yel-Yel) Urine Clarity Clear (Clear/Hazy) Urine pH 6.0 (5.0-7.0) Ur Specific [place] 1.020 (1.001-1.035) Urine Protein 1+ A (Neg - Trace) Urine Glucose (UA) 4+ A (Negative) Assessment and Plan Additional Assessment & Plan Additional Plan: # Abnormal CT scan of the abdomen pelvis showing inflammation seen this terminal ileum with increased stool burden Differential diagnosis in the setting of regional ileitis is inflammatory versus infectious Because of the large stool burden: Needs to be flushed out Plan KUB GoLytely flush If patient starts vomiting with the GoLytely insert NGT to intermittent Gomco suction Will follow the patient ANCA antibody CRP Other medical problems include Hemorrhagic CVA with left-sided motor weakness Seizure disorder Essential hypertension Diabetes mellitus type 2 Thank you very much for the opportunity to participate in the care of this patient
[2024-12-26] MEDS: INSULIN DEGLUDEC 5 UNIT/0.05 ML (PER 5 UNITS) 10 UNIT SC (20:44)
--- NOTE | 2024-12-26 21:01 | XR_ITS ---
Examination: Abdomen AP single view Technique: AP portable supine abdomen, single view Exam date and time: December 26, 2024, 0903 hrs., Comparison June 27, 2023 Indications: Abdominal distention today. Findings: Multiple air distended small bowel loops, please see the CT abdomen pelvis report today No free air Atelectasis in the lower lung zones Prominent osteopenia Impression: Multiple air distended loops of small bowel, please see the CT abdomen pelvis report today, differential would include early small bowel obstruction secondary to severe enteritis in the terminal ileal segments
--- NOTE | 2024-12-26 21:07 | PC.NURSE ---
Spoke with Dr Oliveira, verbally ordered Golytley and KUB for patient for concern of abdominal distention, care continued
[2024-12-26] MEDS: INSULIN LISPRO (AdmeLOG) 1 UNIT/0.01 ML UNIT 5 UNIT SC (22:18)
[2024-12-26] MEDS: NA SU/NAHCO3/KC/PEG (Golytely) 4,000 ML BTL 4000 ML PO (22:19)
[2024-12-27] VITALS (11 sets, daily range): BP systolic 133–146; BP diastolic 92–105; PULSE 113–133; RESP 19–94; TEMP 36.3–37.8; O2SAT 91–97; BMI 28.3
[2024-12-27] MEDS: PIPER/TAZO 3.375 GM PREMIX 3.375 GM/50 ML BAG IV ×4 (01:16→17:47)
[2024-12-27] MEDS: INSULIN LISPRO (AdmeLOG) 1 UNIT/0.01 ML UNIT SC ×4 (01:30→17:47)
--- NOTE | 2024-12-27 01:31 | PC.NURSE ---
spoke with MD Drake regarding Patient BS of 306, patient has already received Degludec 10 units HS at 21:00 and Lispro 5 units x1 at 21:33, MD drake instructed to give 3 units Lispro instead of the 5 units according to protocol sliding scale for Q6 BS checks. Care continued.
[2024-12-27] MEDS: RINGERS LACTATED 1000 ML 1,000 ML 100 ML IV ×2 (01:45→13:09)
[2024-12-27 06:07] LABS: Basophils # (Auto) 0.0 Thou/mm3 (0.0-0.2); Basophils % (Auto) 0 % (0-2.5); Eosinophils # (Auto) 0.1 Thou/mm3 (0.0-0.5); Eosinophils % (Auto) 0 % (0-10); Hematocrit 46.0 % (41.0-53.0); Hemoglobin 15.3 g/dL (13.5-16.0); Immature Granulocytes Auto 0.11 Thou/mm3 (0.00-0.00); Lymphocytes # (Auto) 0.9 Thou/mm3 (1.0-4.8); Lymphocytes % (Auto) 5 % (10-50); Mean Corpuscular HGB Conc 33.3 g/dl (31.0-37.0); Mean Corpuscular Hemoglobin 26.7 pg (25.0-35.0); Mean Corpuscular Volume 80 fL (80-100); Monocytes # (Auto) 0.5 Thou/mm3 (0.0-0.8); Monocytes % (Auto) 2 % (0-12); Neutrophils # (Auto) 17.1 Thou/mm3 (1.8-7.7); Neutrophils % (Auto) 92 % (37-80); Nucleated Red Blood Cell # 0.00 Thou/mm3 (0.00-0.00); Nucleated Red Blood Cell % 0 /100 WBC (0); Platelet Count 177 Thou/mm3 (140-440); RDW Standard Deviation 41.2 fL (35.1-43.9); Red Blood Count 5.72 Miln/mm3 (4.50-5.90); White Blood Count 18.6 Thou/mm3 (3.8-10.6)
[2024-12-27] MEDS: HEPARIN SOD INJ 5000 UNIT/ML VIAL SC ×2 (06:26→21:02)
[2024-12-27 06:53] LABS: Alanine Aminotransferase 19 U/L (10-49); Albumin, Serum 4.0 gm/dL (3.5-5.0); Albumin/Globulin Ratio 1.4 (1.2-2.2); Alkaline Phosphatase 82 U/L (46-116); Anion Gap 13 (7-16); Aspartate Amino Transferase 14 U/L (0-34); BUN/Creatinine Ratio 20 Ratio (12-20); Bilirubin,Total 1.4 mg/dL (0.3-1.2); Blood Urea Nitrogen 16 mg/dL (9-23); C-Reactive Protein 31.6 mg/dL (0.0-0.9); Calcium 9.6 mg/dL (8.3-10.6); Calcium (Corrected) 9.6 mg/dL (8.5-10.1); Carbon Dioxide 23.2 mMol/L (20.0-31.0); Chloride 103 mMol/L (98-107); Creatinine (Component) 0.8 mg/dL (0.6-1.3); Estimated Creatinine Clearance 100.0 mL/min (>60); Globulin 2.9 gm/dL (2.3-3.5); Glucose 312 mg/dL (74-106); Magnesium 2.0 mg/dL (1.6-2.6); Osmolality,Calculated 290 (275-295); Phosphorous 1.2 mg/dL (2.4-5.1); Potassium 3.5 mMol/L (3.4-5.1); Sodium 139 mMol/L (136-145); Total Protein 6.9 gm/dL (5.7-8.2); eGFR > 60 See Note
[2024-12-27] MEDS: POT PHOS 15 mMol in NS 250 ML 15 MMOL/250 ML BAG 62.5 MMOL IV ×3 (08:46→18:02)
[2024-12-27 09:56] LABS: Lactate (Lactic Acid) 2.7 mMol/L (0.4-2.0)
--- NOTE | 2024-12-27 10:06 | PC.SS ---
Follow up note: Has NG tube. Taking Golytely. Making sure has no obstruction.
--- NOTE | 2024-12-27 11:53 | ESPR_ITS ---
<Statement entered by Barrera Downing MD - 12/27/24 18:54> No acute overnight events. Patient is seen and examined at bedside. Vitals are stable. Physical examination findings remained unchanged from the time of admission and noted to have severe abdominal tenderness. Patient was started on GoLytely per Dr. Oliveira but patient is not able to tolerate it and noted to have an episode of vomiting this morning. NG tube was inserted and was connected to low intermittent suction, found to have 1500 mL of output, will continue intermittent suction and hold GoLytely for now. Labs done this morning showed uptrending WBC, 18.6. Insulin degludec was increased to 15 units. Will change insulin dosage according to the fasting blood sugars Have personally seen and examined the patient, agree with the residents assessment and plan Patient plan of care was discussed with the Attending physician, Dr. Donn Downing, PGY2 Documentation for date of: 12/27/24 Subjective Subjective Interval history: Overnight, was given lispro 5 units due to glucose of 339. Patient seen and examined at bedside this AM. Continues to endorse generalized abdominal pain. Was started on GoLytely prep last night, reports has been drinking a very slowly. Had 1 small bout of bilious emesis this morning. Per GI recommendations, inserted NG tube to help with GoLytely prep and bowel clearance. Suctioned out 1500 mL of bilious fluid. Patient later this afternoon develops new right lower quadrant pain reports that he has not passed gas since yesterday morning. Repeat KUB ordered. Consulted surgery Dr Degroot who suspects obstruction secondary to severe colonic inflammation. Recommend low intermittent suction via NG tube and reevaluation tomorrow morning. If improved clamp and repeat KUB. Will hold GoLytely at this time. Continue n.p.o. Labs and vitals were reviewed. WBCs continue to be elevated 18.6, concern for infectious versus inflammatory ileitis. Lactate is now within normal limits, resolved with fluids. CRP elevated at 31.6. Pending ANCA, antiproteinase 3, antimyeloperoxidase. Glucose remained elevated at 312 this morning, will increase insulin degludec to 15 units at bedtime. Recheck glucose tomorrow morning. Review of systems otherwise negative except what is mentioned above. Exam Vital Signs Temp Pulse Resp BP Pulse Ox O2 Del Method O2 Flow Rate 98.8 F 123 H 20 133/96 H 94 L Room Air 2 12/27/24 08:00 12/27/24 08:00 12/27/24 08:00 12/27/24 08:00 12/27/24 08:00 12/27/24 08:00 12/26/24 09:07 Narrative Exam Physical Exam General: Senegalese speaking elderly male. Awake and in no acute distress. Conversational and non-toxic appearing. HEENT: Normocephalic, atraumatic, mucous membranes moist. No facial droop observed. Heart: Tachycardic. Regular rate and rhythm, normal S1 and S2, no murmurs appreciated. Lungs: Clear to auscultation with no wheezing or crackles. Abdomen: Soft, mildly distended, diffuse generalized tenderness out of proportion, positive bowel sounds. No guarding or rebound tenderness. Neurologic: Alert and oriented x3. 0/5 strength in LLE and LUE. Sensation appears to be intact in all extremities. Extremities: No lower extremity edema bilaterally. Skin: No rash or ecchymoses. Objective Labs 12/28/24 05:28 12/28/24 05:28 Labs: Laboratory Results - last 24 hr 12/26/24 12/26/24 12/26/24 12:19 14:32 18:28 WBC RBC Hgb Hct MCV MCH MCHC RDW Std Deviation Plt Count Neut % (Auto) Lymph % (Auto) [place] % (Auto) Eos % (Auto) Baso % (Auto) Neut # (Auto) Lymph # (Auto) [place] # (Auto) Eos # (Auto) Baso # (Auto) Immature Gran # (Auto) Absolute Nucleated RBC Immature Gran % Nucleated RBC % Sodium 138 Potassium 3.9 Chloride 104 Carbon Dioxide 20.5 Anion Gap 14 BUN 13 Creatinine 0.7 Estim Creat Clear Calc 126.1 eGFR > 60 BUN/Creatinine Ratio 19 Glucose 339 H Calculated Osmolality 288 Lactic Acid 5.5 H* Calcium 8.6 D Corrected Calcium 8.7 D Phosphorus 2.1 L Magnesium Total Bilirubin AST ALT Alkaline Phosphatase Troponin I 0.040 C-Reactive Prot, Quant Total Protein Albumin 3.9 D Globulin Albumin/Globulin Ratio Beta-Hydroxybutyrate/Acetoacetate 0.7 H Ur Collection Type Urine Color Urine Clarity Urine pH Ur Specific [place] Urine Protein Urine Glucose (UA) Urine Ketones Urine Blood Urine Nitrite Urine Bilirubin Urine Urobilinogen (Auto) Ur Leukocyte Esterase Urine RBC Urine WBC Ur Squamous Epith Cells Urine Bacteria Urine Yeast (Budding) Ur Culture Indicated? 12/26/24 12/27/24 12/27/24 18:40 05:38 09:25 WBC 18.6 H RBC 5.72 Hgb 15.3 Hct 46.0 MCV 80 MCH 26.7 MCHC 33.3 RDW Std Deviation 41.2 Plt Count 177 D Neut % (Auto) 92 H Lymph % (Auto) 5 L [place] % (Auto) 2 Eos % (Auto) 0 Baso % (Auto) 0 Neut # (Auto) 17.1 H Lymph # (Auto) 0.9 L [place] # (Auto) 0.5 Eos # (Auto) 0.1 Baso # (Auto) 0.0 Immature Gran # (Auto) 0.11 H Absolute Nucleated RBC 0.00 Immature Gran % 1 H Nucleated RBC % 0 Sodium 139 Potassium 3.5 Chloride 103 Carbon Dioxide 23.2 Anion Gap 13 BUN 16 Creatinine 0.8 Estim Creat Clear Calc 100.0 eGFR > 60 BUN/Creatinine Ratio 20 Glucose 312 H Calculated Osmolality 290 Lactic Acid 2.7 H Calcium 9.6 Corrected Calcium 9.6 Phosphorus 1.2 L Magnesium 2.0 Total Bilirubin 1.4 H AST 14 ALT 19 Alkaline Phosphatase 82 D Troponin I C-Reactive Prot, Quant 31.6 H Total Protein 6.9 Albumin 4.0 Globulin 2.9 Albumin/Globulin Ratio 1.4 Beta-Hydroxybutyrate/Acetoacetate Ur Collection Type Clean Catch Urine Color Yellow Urine Clarity Clear Urine pH 6.0 Ur Specific [place] 1.020 Urine Protein 1+ A Urine Glucose (UA) 4+ A Urine Ketones 2+ A Urine Blood 2+ A Urine Nitrite Negative Urine Bilirubin Negative Urine Urobilinogen (Auto) 3.0 Ur Leukocyte Esterase Negative Urine RBC 26 H Urine WBC 27 H Ur Squamous Epith Cells 1 Urine Bacteria None Urine Yeast (Budding) Present A Ur Culture Indicated? Yes Quality Measures Quality Measures none Assessment & Plan Assessment Current Active Medications: Generic Name Dose Route Start Last Admin Trade Name Freq PRN Reason Stop Dose Admin Acetaminophen 650 mg 12/26/24 15:18 Acetaminophen 325 Mg Tablet PO 01/25/25 15:17 Q6H PRN Fever >101.5 and pain (1-3) Dextrose 25 ml 12/26/24 15:36 Dextrose 50%-Water Inj 50 Ml Syringe IV 01/25/25 15:35 Q15MIN PRN BG 50-70 responsive npo pt Dextrose 50 ml 12/26/24 15:36 Dextrose 50%-Water Inj 50 Ml Syringe IV 01/25/25 15:35 Q15MIN PRN BG <50 OR BG <70 & pt unresponsive Glucagon 1 mg 12/26/24 15:36 Glucagon Inj 1 Mg Vial IM Q15MIN PRN BG <70, and no IV access Heparin Sodium (Porcine) 5,000 unit 12/26/24 15:30 12/27/24 06:26 Heparin Sod Inj 5000 Unit/Ml Vial SC 01/09/25 15:29 5,000 unit Q8HR GIOVANNI Administration Hydromorphone HCl 1 mg 12/26/24 15:31 Hydromorphone Inj 2 Mg/Ml Vial IVP 12/31/24 15:30 Q6HR PRN PAIN SCALE 4-10(Mod-Sev Piperacillin/Tazobactam/Dextrose 3.375 gm in 50 mls @ 100 mls/hr 12/26/24 18:00 12/27/24 06:27 Zosyn IV 01/02/25 17:59 100 mls/hr Q6HR GIOVANNI Administration Lactated Ringer's 1,000 mls @ 100 mls/hr 12/26/24 16:46 12/27/24 01:45 Lactated Ringers IV 01/25/25 16:45 100 mls/hr .Q10H GIOVANNI Administration Potassium Phosphate 15 mmol in 250 mls @ 62.5 mls/hr 12/27/24 07:40 12/27/24 08:46 Pot Phos 15 Mmol In Ns 250 Ml IV 12/27/24 15:39 62.5 mls/hr Q4H GIOVANNI Administration Potassium Phosphate 15 mmol in 250 mls @ 62.5 mls/hr 12/27/24 16:30 Pot Phos 15 Mmol In Ns 250 Ml IV 12/27/24 20:29 X1 ONE Insulin Degludec 15 unit 12/27/24 21:00 Insulin Degludec 5 Unit/0.05 Ml (Per 5 Units) SC 01/26/25 20:59 HS GIOVANNI Insulin Human Lispro 0 unit 12/26/24 18:00 12/27/24 06:26 Insulin Lispro (Admelog) 1 Unit/0.01 Ml Unit SC 01/25/25 17:59 4 unit Q6HR GIOVANNI Administration Protocol Ondansetron HCl 4 mg 12/26/24 15:34 Ondansetron Inj 2 Mg/Ml Inj 2 Ml IVP 01/25/25 15:33 Q6HR PRN NAUSEA OR VOMITING Protocol Pantoprazole Sodium 40 mg 12/26/24 15:45 12/27/24 08:46 Pantoprazole Inj 40 Mg Vial IVP 01/25/25 15:44 40 mg QDAY GIOVANNI Administration Plan Patient is a 54 year old male with PMH of 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 #Sepsis 2/2 #Terminal ileitis, infectious versus inflammatory #Leukocytosis, reactive versus infectious cause #HAGMA, resolved #Lactic acidosis, resolved On admission, meets 3/4 SIRS criteria: tachycardic HR 137, temp increased to 104F, WBC 18,000. Anion gap 18 and bicarb 19.8. Procalc elevated at 3.1. Admission lactic acid elevated 6.0 -> 5.5 with fluid bolus. Beta hydroxybutyrate mildly increased at 0.7 and glucose 366, low concern for DKA/HHS. Patient denies history of inflammatory bowel or autoimmune diseases, however patient is a poor historian. Patient denies blood in stool or diarrhea as of late. Denies recent sick contacts or usual food exposure. CT A/P 12/26 shows severe terminal ilietis and cystitis, no bowel obstruction observed. BCX 12/26 negative for 24 hours. WBC 18.0 (admission) -> 18.6. CRP elevated at 31.6. Resolution of lactic acidosis and HAGMA w IV fluids. Plan: - IV Zosyn for SBP prophylaxis - Follow up blood culture, stool culture, stool WBCs, Giardia, Norovirus - Pending ANCA, anti-proteinase 3, anti myeloperoxidase - Pending stool calprotectin - Consulted GI Dr. Oliveira, appreciate recommendations - NPO for bowel rest #Small Bowel obstruction #Hx chronic constipation #c/f SBO given history History of SBO, no surgeries or decompression done. Last bowel movement 4 days ago, reports only has bowel movements once a week. Able to pass gas. Had 1 episode of nonbilious nonblood emesis in ED. Last meal was breakfast day of admission. Endorsed lower abdominal pain, however has generalized tenderness. As above, CT A/P did not note obstruction, only terminal ilietis. Has extensive prn bowel regimen at rehab center (has been there since 06/2023 for residual left sided weakness from CVA). Consulted surgeon Dr. Degroot, not concerned for SBO, no need for surgical intervention at this time. Recommended consulting GI. Plan: - Consulted GI Dr. Oliveira, appreciate recommendations: started on GoLytely for bowel cleanse overnight, will discontinue due to new RLQ pain - Consulted surgery Dr. Degroot for SBO: mild obstruction likely 2/2 to inflammation, NG tube placed for suction, clamp in morning if better, repeat KUB tomorrow morning - Hold bowel regimen for now, until can tolerate diet - Pain regimen: Tylenol and IV dilaudid 1mg q6hr prn - NPO - IV protonix 40 mg - IV Zofran 4mg prn #Pyuria #Hematuria #Cystitis UA 12/26 showed WBC 27, RBC 27; negative leukocyte esterase, nitrites, and bacteria. Budding yeast present. Previously grew Morganella morganii on urine culture 12/21/17. CT A/P 12/26/24 shows bladder wall thickening, with concern for cystitis. Plan: - Urine culture pending #Insulin dependent DM Takes insuline glargine 33 units and Novolog at rehab center. Last meal breakfast, currently NPO. UA 12/26 glucose 4+ with budding yeast, likely uncontrolled. SGLT-2 not on home medication list. Plan: - Increase insulin degludec to 15 HS as patient is NPO - SSI - CTM glucose and insulin requirements tomorrow, will adjust accordingly #Hypertension Taking amlodipine 10 mg daily, clonidine 0.3 mg TID, and losartan 50 mg daily. BP 158/101 on admission, improved now to 122/64 after pain control. Plan: - Hold home meds at this time, restart if becomes hypertensive - CTM BP #Hx seizures Home med Keppra 1000mg BID. Plan: - Consider restarting Keppra tomorrow when no longer NPO Health Maintenance Disposition: management of sepsis secondary to GI infection, HAGMA, lactic acidosis DVT prophylaxis: Heparin SQ GI prophylaxis: IV protonix 40 mg daily Bowel regimen: Hold for now, TBD Diet: NPO CODE STATUS: FULL Patient plan of care was discussed with the resident, Dr. Downing, and attending physician, Dr. Pop. Patience Mckinnon, PGY-1 Attending Provider Attestation/Addendum I, Lexie Pop, , attest that I was physically present for the levin portions of the service and evaluated the patient with the resident and I reviewed and discussed the case with the resident and agree with the resident's findings and plans of care as documented above Patient seen and evaluated this AM. Patient continues to have pain in his abdomen and very tender to palpation. Abdomen remains tense and distended. Pt had been started on GoLytely overnight, but patient unable to tolerate PO intake and threw up the colon prep. NG tube was placedand placed on LIS during which 1500mL of bilious output was removed. Case discussed with both GI and surgeon, recommends keeping patient NPO and continue with IV abx. Patient may be having obstruction secondary to significant inflammation in ileum. Will clamp NG tube in morning and repeat KUB. Patient has not had any BM since Wednesday
[2024-12-27 12:55] LABS: Reflex Lactate? Y
--- NOTE | 2024-12-27 12:56 | XR_ITS ---
Examination: AP chest single view Technique one AP portable upright chest single view Date and time: December 27, 2024 1323 hours INDICATIONS: Post orogastric tube insertion today. FINDINGS: Orogastric tube in the stomach, the tip is below the level film Subsegmental atelectasis in the lower lung zones No significant cardiac enlargement Reduced inspiratory effort Moderate osteopenia IMPRESSION: Orogastric tube in the stomach, the tip is below the level film
[2024-12-27 14:19] LABS: Lactic Acid, 3 HR 1.7 mMol/L (0.4-2.0)
[2024-12-27] MEDS: HYDROmorphone INJ 2 MG/ML VIAL 1 MG IVP ×2 (15:15→22:42)
[2024-12-27 15:31] LABS: Lactate (Lactic Acid) 1.8 mMol/L (0.4-2.0)
--- NOTE | 2024-12-27 15:31 | XR_ITS ---
Examination: Abdomen AP single view Technique: AP portable supine abdomen, single view Exam date and time: December 27, 2024 1538 hours, comparison December 26 2024 INDICATIONS: Right lower abdominal pain today FINDINGS: Multiple air distended small bowel loops Orogastric tube in stomach satisfactory position No free air IMPRESSION: Small bowel obstruction pattern
--- NOTE | 2024-12-27 20:37 | ESPR_ITS ---
Documentation for date of: 12/27/24 Subjective Subjective Interval history: KUB shows small bowel ileus with air-fluid levels/small bowel obstruction NGT to intermittent suction has copious amounts of secretions Exam Vital Signs Temp Pulse Resp BP Pulse Ox O2 Del Method O2 Flow Rate 98.8 F 133 H 24 H 139/92 H 91 L Room Air 2 12/27/24 16:00 12/27/24 17:57 12/27/24 17:57 12/27/24 16:00 12/27/24 16:00 12/27/24 16:00 12/26/24 09:07 Objective Labs 12/27/24 05:38 12/27/24 05:38 Labs: Laboratory Results - last 24 hr 12/27/24 12/27/24 12/27/24 05:38 09:25 14:08 WBC 18.6 H RBC 5.72 Hgb 15.3 Hct 46.0 MCV 80 MCH 26.7 MCHC 33.3 RDW Std Deviation 41.2 Plt Count 177 D Neut % (Auto) 92 H Lymph % (Auto) 5 L [place] % (Auto) 2 Eos % (Auto) 0 Baso % (Auto) 0 Neut # (Auto) 17.1 H Lymph # (Auto) 0.9 L [place] # (Auto) 0.5 Eos # (Auto) 0.1 Baso # (Auto) 0.0 Immature Gran # (Auto) 0.11 H Absolute Nucleated RBC 0.00 Immature Gran % 1 H Nucleated RBC % 0 Sodium 139 Potassium 3.5 Chloride 103 Carbon Dioxide 23.2 Anion Gap 13 BUN 16 Creatinine 0.8 Estim Creat Clear Calc 100.0 eGFR > 60 BUN/Creatinine Ratio 20 Glucose 312 H Calculated Osmolality 290 Lactic Acid 2.7 H 1.7 Calcium 9.6 Corrected Calcium 9.6 Phosphorus 1.2 L Magnesium 2.0 Total Bilirubin 1.4 H AST 14 ALT 19 Alkaline Phosphatase 82 D C-Reactive Prot, Quant 31.6 H Total Protein 6.9 Albumin 4.0 Globulin 2.9 Albumin/Globulin Ratio 1.4 12/27/24 15:25 WBC RBC Hgb Hct MCV MCH MCHC RDW Std Deviation Plt Count Neut % (Auto) Lymph % (Auto) [place] % (Auto) Eos % (Auto) Baso % (Auto) Neut # (Auto) Lymph # (Auto) [place] # (Auto) Eos # (Auto) Baso # (Auto) Immature Gran # (Auto) Absolute Nucleated RBC Immature Gran % Nucleated RBC % Sodium Potassium Chloride Carbon Dioxide Anion Gap BUN Creatinine Estim Creat Clear Calc eGFR BUN/Creatinine Ratio Glucose Calculated Osmolality Lactic Acid 1.8 Calcium Corrected Calcium Phosphorus Magnesium Total Bilirubin AST ALT Alkaline Phosphatase C-Reactive Prot, Quant Total Protein Albumin Globulin Albumin/Globulin Ratio Impressions Impression: Small bowel obstruction most likely due to changes at the terminal ileum Continue NGT suction Gastrografin small bowel follow-through a.m. Assessment & Plan A&P Narrative # Abnormal CT scan of the abdomen pelvis showing inflammation seen this terminal ileum with increased stool burden Differential diagnosis in the setting of regional ileitis is inflammatory versus infectious Because of the large stool burden: Needs to be flushed out Plan KUB GoLytely flush If patient starts vomiting with the GoLytely insert NGT to intermittent [place] suction Will follow the patient ANCA antibody CRP Other medical problems include Hemorrhagic CVA with left-sided motor weakness Seizure disorder Essential hypertension Diabetes mellitus type 2 Thank you very much for the opportunity to participate in the care of this patient Time Spent With Patient Time: Total time spent is greater than 50% in coordination of care (as documented) at patient's floor/unit and/or counseling patient:
--- NOTE | 2024-12-27 20:39 | XR_ITS ---
Examination: Small bowel series AP abdomen 3 views Date and time: December 27, 2024, 2043 hrs. Indications: Abdominal pain and distention today with dilated small bowel loops on abdomen film today Technique And Findings: Patient received 120 cc Gastrografin through the orogastric tube Intermediate 30 minute and 1 films obtained These demonstrate significantly air distended small bowel loops, contrast in the colon Impression: Small bowel obstruction pattern Recommend follow-up abdomen films midnight, 3:00 AM, 7:00 AM
[2024-12-27] MEDS: INSULIN DEGLUDEC 5 UNIT/0.05 ML (PER 5 UNITS) 15 UNIT SC (20:59)
[2024-12-27] MEDS: ACETAMINOPHEN SUPP 650 MG SUPP PR (22:47)
[2024-12-28] VITALS (9 sets, daily range): BP systolic 131–163; BP diastolic 91–102; PULSE 92–135; RESP 19–95; TEMP 36.7–37.8; O2SAT 92–97; BMI 28.3
--- NOTE | 2024-12-28 | XR_ITS ---
Examination: Abdomen AP single view Technique: AP portable supine abdomen, single view Exam date and time: December 27, 2024 1137 hours INDICATIONS: 3 hour delayed film post small bowel series today., Abdominal pain and distention this week. FINDINGS: Significantly air distended small bowel loops Contrast in the colon IMPRESSION: Small bowel obstruction pattern
[2024-12-28] MEDS: PIPER/TAZO 3.375 GM PREMIX 3.375 GM/50 ML BAG IV ×5 (00:23→23:09)
[2024-12-28] MEDS: INSULIN LISPRO (AdmeLOG) 1 UNIT/0.01 ML UNIT SC ×3 (00:23→23:09)
[2024-12-28] MEDS: RINGERS LACTATED 1000 ML 1,000 ML 100 ML IV ×3 (02:17→23:09)
--- NOTE | 2024-12-28 03:00 | XR_ITS ---
Examination: Abdomen AP single view Technique: AP portable supine abdomen, single view Exam date and time: December 28, 2024 0305 hours INDICATIONS: Abdominal pain and distention this week, 6 hour delayed film post small bowel series FINDINGS: Contrast remains in the stomach Air distended small bowel loops IMPRESSION: Small bowel obstruction pattern
[2024-12-28 05:49] LABS: Basophils # (Auto) 0.0 Thou/mm3 (0.0-0.2); Basophils % (Auto) 0 % (0-2.5); Eosinophils # (Auto) 0.0 Thou/mm3 (0.0-0.5); Eosinophils % (Auto) 0 % (0-10); Hematocrit 42.2 % (41.0-53.0); Hemoglobin 13.4 g/dL (13.5-16.0); Immature Granulocytes Auto 0.07 Thou/mm3 (0.00-0.00); Lymphocytes # (Auto) 1.0 Thou/mm3 (1.0-4.8); Lymphocytes % (Auto) 7 % (10-50); Mean Corpuscular HGB Conc 31.8 g/dl (31.0-37.0); Mean Corpuscular Hemoglobin 25.8 pg (25.0-35.0); Mean Corpuscular Volume 81 fL (80-100); Monocytes # (Auto) 0.4 Thou/mm3 (0.0-0.8); Monocytes % (Auto) 3 % (0-12); Neutrophils # (Auto) 12.6 Thou/mm3 (1.8-7.7); Neutrophils % (Auto) 90 % (37-80); Nucleated Red Blood Cell # 0.00 Thou/mm3 (0.00-0.00); Nucleated Red Blood Cell % 0 /100 WBC (0); Platelet Count 183 Thou/mm3 (140-440); RDW Standard Deviation 43.0 fL (35.1-43.9); Red Blood Count 5.20 Miln/mm3 (4.50-5.90); White Blood Count 14.0 Thou/mm3 (3.8-10.6)
[2024-12-28 06:22] LABS: Alanine Aminotransferase 11 U/L (10-49); Albumin, Serum 3.6 gm/dL (3.5-5.0); Albumin/Globulin Ratio 1.3 (1.2-2.2); Alkaline Phosphatase 74 U/L (46-116); Anion Gap 13 (7-16); Aspartate Amino Transferase < 8 U/L (0-34); BUN/Creatinine Ratio 30 Ratio (12-20); Bilirubin,Total 0.9 mg/dL (0.3-1.2); Blood Urea Nitrogen 18 mg/dL (9-23); Calcium 9.2 mg/dL (8.3-10.6); Calcium (Corrected) 9.5 mg/dL (8.5-10.1); Carbon Dioxide 27.1 mMol/L (20.0-31.0); Chloride 105 mMol/L (98-107); Creatinine (Component) 0.6 mg/dL (0.6-1.3); Estimated Creatinine Clearance 133.3 mL/min (>60); Globulin 2.7 gm/dL (2.3-3.5); Glucose 232 mg/dL (74-106); Magnesium 2.0 mg/dL (1.6-2.6); Osmolality,Calculated 297 (275-295); Phosphorous 2.1 mg/dL (2.4-5.1); Potassium 3.5 mMol/L (3.4-5.1); Sodium 145 mMol/L (136-145); Total Protein 6.3 gm/dL (5.7-8.2); eGFR > 60 See Note
--- NOTE | 2024-12-28 07:00 | XR_ITS ---
Examination: Abdomen AP single view Technique: AP portable supine abdomen, single view Exam date and time: December 28, 2024 0653 hours INDICATIONS: 10 hour delayed film post small bowel series today, abdominal pain and distention this week. FINDINGS: Contrast remains in the stomach Multiple air distended small bowel loops IMPRESSION: Small bowel obstruction pattern
--- NOTE | 2024-12-28 07:32 | PC.NURSE ---
Dr. Mckinnon aware of pt. BP 163/109 and temp 100.1 with cooling measures per parameteres for tylenol. NO current orders for BP meds. Dr. Mckinnon states I will order something for the blood pressure. aware pt. NPO
[2024-12-28] MEDS: POT PHOS 15 mMol in NS 250 ML 15 MMOL/250 ML BAG 62.5 MMOL IV (08:56)
--- NOTE | 2024-12-28 10:49 | PD.SURCONS ---
HPI Consult details Consult date: 12/28/24 Reason for consultation narrative: Small bowel obstruction History of present illness: 54 year-old male with history of hypertension, diabetes mellitus, hemorrhagic CVA and residual left-sided weakness, seizure disorder, major neurocognitive disorder, who presents with complaint of abdominal pain with constipation. CT scan revealed significant inflammatory reaction around terminal ileum suspicious for terminal ileitis. Patient was started on antibiotic and admitted for further management. He continued to have abdominal distention and NG tube was placed that drained approxi-1-1/2 L of bilious fluid. His NG tube has been clamped since yesterday and a small bowel series was obtained that showed dilated loops of small bowel concerning for small bowel obstruction. Review of Systems Constitutional Constitutional: Denies chills and Denies fever(s) Cardiovascular Cardiovascular: Denies chest pain Respiratory Respiratory: Denies cough Past Medical History Surgical History OTHER SURGICAL HX: Scopic cholecystectomy, I&D perirectal abscess, PEG tube placement Meds Home Medications and Allergies Home Medications ?Medication ?Instructions ?Recorded ?Confirmed ?Type acetaminophen 325 mg tablet 2 tab PO Q6HR PRN Pain 12/21/17 12/26/24 History (Tylenol) bisacodyl 10 mg rectal suppository 10 mg [place] Q72H PRN Constipation 12/21/17 12/26/24 History (Dulcolax (bisacodyl)) cholecalciferol (vitamin D3) 75 25 mcg PO QDAY 12/21/17 12/26/24 History mcg (3,000 unit) tablet clonidine HCl 0.3 mg tablet 0.3 mg PO TID 12/21/17 12/26/24 History Held on 06/29/23. Instructions: untill you see primary care physician folic acid 1 mg tablet 1 mg PO QDAY 12/21/17 12/26/24 History insulin glargine 100 unit/mL 31 unit subcut QPM 12/21/17 12/26/24 History subcutaneous solution lactulose 10 gram/15 mL oral 10 mg PO QDAY PRN Constipation 12/21/17 12/26/24 History solution losartan 50 mg tablet 50 mg PO QDAY 12/21/17 12/26/24 History magnesium hydroxide 400 mg/5 mL 30 ml PO Q72H PRN Constipation 12/21/17 12/26/24 History oral suspension (Milk of Magnesia) melatonin 3 mg tablet 3 mg PO HS 08/28/18 09/02/25 History multivitamin with minerals 1 tab PO QDAY 12/21/17 12/26/24 History sennosides 8.6 mg-docusate sodium 2 tab PO BID PRN Constipation 12/21/17 12/26/24 History 50 mg tablet sodium phosphates 19 gram-7 118 ml [place] Q72H PRN Constipation 12/21/17 12/26/24 History gram/118 mL enema (Fleet Enema) insulin regular human 100 unit/mL 4 unit subcut TID 06/25/23 12/26/24 History injection solution (Novolin R Regular U-100 Insulin) insulin regular human 100 unit/mL See Rx Instructions .Route .COMPLEX 06/25/23 12/26/24 History injection solution (Novolin R Regular U-100 Insulin) Allergies Allergy/AdvReac Type Severity Reaction Status Date / Time adenosine Allergy Mild Rash Verified 12/26/24 08:19 vancomycin AdvReac Intermediate Redness of Verified 12/26/24 08:19 Skin Exam Vital Signs Temp Pulse Resp BP Pulse Ox O2 Del Method O2 Flow Rate 99.3 F 115 H 25 H 155/102 H 96 Room Air 2 12/28/24 08:30 12/28/24 08:00 12/28/24 08:00 12/28/24 08:00 12/28/24 08:00 12/28/24 08:00 12/26/24 09:07 Constitutional Constitutional: no acute distress Routine Abdominal Exam Comments: Abdomen is soft but distended. He has tenderness throughout the abdomen, however there is no evidence of diffuse peritonitis at this time Results Results: Laboratory Laboratory results: results reviewed Results: Imaging CT scan - abdomen: report reviewed and image reviewed CT scan - pelvis: report reviewed and image reviewed Assessment & Plan Additional Assessment Additional comments: Small bowel obstruction secondary to terminal ileitis Plan Continue NG tube decompression and IV antibiotics. Once inflammation improves, his small bowel obstruction resolves. Will follow
--- NOTE | 2024-12-28 12:03 | PC.SS ---
Late note 12-27-24: SS met with patient regarding his d/c plan. Pt is alert/oriented. Pt was admitted for C/O SBO. Pt confirmed demographic and contact information is correct on facesheet. Pt is retirement resident from [facility]. Pt is bedbound and is 2 person assists. Pt requires assistance with all ADLs. Pt named his sister, Yana Chacon medical decision maker if he is unable. Patient?s choice is to return to [facility] upon d/c. D/C plan: Return to [facility] Next of Kin: Yana Brownsyd, sister, phone# [phone] Address: Correct on facesheet
--- NOTE | 2024-12-28 13:30 | ESPR_ITS ---
<Statement entered by Barrera Downing MD - 12/28/24 15:46> No acute overnight events. Patient noted to have temperature of 101.1 ?F overnight for which he received rectal Tylenol suppositories and developed 1 more febrile episode in the morning which cooling measures done and later the fever resolved. Still complaining of abdominal pain but reported that it improved from the time of admission. Small bowel series was ordered and patient noted to have small bowel obstruction. Did not have any bowel movement still. Labs done this morning showed downtrending WBC, 14. Potassium is 3.4, phosphate is 2.1 which were repleted with 15 mill equivalents of potassium phosphate. Currently, patient might be having small bowel obstruction due to ongoing inflammation. So we will continue antibiotics, bowel rest and if does not improve will consult general surgeon, Dr. Degroot for further management I have personally seen and examined the patient, agree with the residents assessment and plan Patient plan of care was discussed with the Attending physician, Dr. Donn Downing, PGY2 Documentation for date of: 12/28/24 Subjective Subjective Interval history: Initiated Gastrografin last night by GI Dr. Oliveira, showed SBO without contrast in colon. Consulted general surgeon Dr. Degroot who recommended continuous suction. Keep patient NPO. Hold GoLytely. No new complaints, abdomen still photographer and distended. Still unable to pass gas. Continue IV Zosyn. Will increase degludec to 18 units due to persistently elevated glucose. Exam Vital Signs Temp Pulse Resp BP Pulse Ox O2 Del Method O2 Flow Rate 98.1 F 116 H 23 H 153/97 H 97 Room Air 2 12/28/24 12:12/28/24 12:12/28/24 12:12/28/24 12:12/28/24 12:12/28/24 12:12/26/24 09:07 Narrative Exam Physical Exam General: [place] speaking elderly male. Awake and in no acute distress. Conversational and non-toxic appearing. HEENT: Normocephalic, atraumatic, mucous membranes moist. No facial droop observed. Heart: Tachycardic. Regular rate and rhythm, normal S1 and S2, no murmurs appreciated. Lungs: Clear to auscultation with no wheezing or crackles. Abdomen: Soft, distended, diffuse generalized tenderness out of proportion, positive bowel sounds. No guarding or rebound tenderness. Neurologic: Alert and oriented x3. 0/5 strength in LLE and LUE. Sensation appears to be intact in all extremities. Extremities: No lower extremity edema bilaterally. Skin: No rash or ecchymoses. Objective Labs 12/29/24 05:54 12/29/24 05:54 Labs: Laboratory Results - last 24 hr 12/27/24 12/27/24 12/28/24 14:08 15:25 05:28 WBC 14.0 H RBC 5.20 Hgb 13.4 L Hct 42.2 MCV 81 MCH 25.8 MCHC 31.8 RDW Std Deviation 43.0 Plt Count 183 Neut % (Auto) 90 H Lymph % (Auto) 7 L [place] % (Auto) 3 Eos % (Auto) 0 Baso % (Auto) 0 Neut # (Auto) 12.6 H Lymph # (Auto) 1.0 [place] # (Auto) 0.4 Eos # (Auto) 0.0 Baso # (Auto) 0.0 Immature Gran # (Auto) 0.07 H Absolute Nucleated RBC 0.00 Immature Gran % 1 H Nucleated RBC % 0 Sodium 145 Potassium 3.5 Chloride 105 Carbon Dioxide 27.1 Anion Gap 13 BUN 18 Creatinine 0.6 Estim Creat Clear Calc 133.3 eGFR > 60 BUN/Creatinine Ratio 30 H Glucose 232 H D Calculated Osmolality 297 H Lactic Acid 1.7 1.8 Calcium 9.2 Corrected Calcium 9.5 Phosphorus 2.1 L Magnesium 2.0 Total Bilirubin 0.9 D AST < 8 ALT 11 Alkaline Phosphatase 74 Total Protein 6.3 Albumin 3.6 Globulin 2.7 Albumin/Globulin Ratio 1.3 Quality Measures Quality Measures none Assessment & Plan Assessment Current Active Medications: Generic Name Dose Route Start Last Admin Trade Name Freq PRN Reason Stop Dose Admin Acetaminophen 650 mg 12/28/24 10:15 Acetaminophen Supp 650 Mg Supp IN 01/27/25 10:14 Q6HR PRN FEVER > 101 Dextrose 25 ml 12/26/24 15:36 Dextrose 50%-Water Inj 50 Ml Syringe IV 01/25/25 15:35 Q15MIN PRN BG 50-70 responsive npo pt Dextrose 50 ml 12/26/24 15:36 Dextrose 50%-Water Inj 50 Ml Syringe IV 01/25/25 15:35 Q15MIN PRN BG <50 OR BG <70 & pt unresponsive Glucagon 1 mg 12/26/24 15:36 Glucagon Inj 1 Mg Vial IM Q15MIN PRN BG <70, and no IV access Heparin Sodium (Porcine) 5,000 unit 12/26/24 15:30 12/28/24 05:44 Heparin Sod Inj 5000 Unit/Ml Vial SC 01/09/25 15:29 Not Given Q8HR GIOVANNI Hydromorphone HCl 1 mg 12/26/24 15:31 12/27/24 22:42 Hydromorphone Inj 2 Mg/Ml Vial IVP 12/31/24 15:30 1 mg Q6HR PRN Administration PAIN SCALE 4-10(Mod-Sev Piperacillin/Tazobactam/Dextrose 3.375 gm in 50 mls @ 100 mls/hr 12/26/24 18:00 12/28/24 11:53 Zosyn IV 01/02/25 17:59 100 mls/hr Q6HR GIOVANNI Administration Lactated Ringer's 1,000 mls @ 100 mls/hr 12/26/24 16:46 12/28/24 11:56 Lactated Ringers IV 01/25/25 16:45 100 mls/hr .Q10H GIOVANNI Administration Insulin Degludec 18 unit 12/28/24 21:00 Insulin Degludec 5 Unit/0.05 Ml (Per 5 Units) [place] 01/27/25 20:59 HS GIOVANNI Insulin Human Lispro 0 unit 12/26/24 18:00 12/28/24 11:51 Insulin Lispro (Admelog) 1 Unit/0.01 Ml Unit SC 01/25/25 17:59 Not Given Q6HR [facility] Protocol Ondansetron HCl 4 mg 12/26/24 15:34 Ondansetron Inj 2 Mg/Ml Inj 2 Ml IVP 01/25/25 15:33 Q6HR PRN NAUSEA OR VOMITING Protocol Pantoprazole Sodium 40 mg 12/26/24 15:45 12/28/24 08:56 Pantoprazole Inj 40 Mg Vial IVP 01/25/25 15:44 40 mg QDAY GIOVANNI Administration Plan Patient is a 54 year old male with PMH of 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 #Small Bowel obstruction #Hx chronic constipation #c/f SBO given history History of SBO, no surgeries or decompression done. Last bowel movement 4 days ago, reports only has bowel movements once a week. Able to pass gas. Had 1 episode of nonbilious nonblood emesis in ED. Last meal was breakfast day of admission. Endorsed lower abdominal pain, however has generalized tenderness. As above, CT A/P did not note obstruction, only terminal ilietis. Has extensive prn bowel regimen at rehab center (has been there since 06/2023 for residual left sided weakness from CVA). Consulted surgeon Dr. Degroot, not concerned for SBO, no need for surgical intervention at this time. Recommended consulting GI. Plan: - Consulted surgery Dr. Degroot for SBO: NG tube decompression until SBO resolves with reduced inflammation - Consulted GI Dr. Oliveira, appreciate recommendations: discontinue GoLytely iso SBO - Hold bowel regimen for now, until can tolerate diet - Pain regimen: Tylenol and IV dilaudid 1mg q6hr prn - NPO - IV protonix 40 mg - IV Zofran 4mg prn #Sepsis 2/2 #Terminal ileitis, infectious versus inflammatory #Leukocytosis, reactive versus infectious cause #HAGMA, resolved #Lactic acidosis, resolved On admission, meets 3/4 SIRS criteria: tachycardic HR 137, temp increased to 104F, WBC 18,000. Anion gap 18 and bicarb 19.8. Procalc elevated at 3.1. Admission lactic acid elevated 6.0 -> 5.5 with fluid bolus. Beta hydroxybutyrate mildly increased at 0.7 and glucose 366, low concern for DKA/HHS. Patient denies history of inflammatory bowel or autoimmune diseases, however patient is a poor historian. Patient denies blood in stool or diarrhea as of late. Denies recent sick contacts or usual food exposure. CT A/P 12/26 shows severe terminal ilietis and cystitis, no bowel obstruction observed. BCX 12/26 negative. WBC 18.0 (admission) -> 18.6. CRP elevated at 31.6. Resolution of lactic acidosis and HAGMA w IV fluids. Plan: - IV Zosyn for SBP prophylaxis (12/26- - Follow up stool culture, stool WBCs, Giardia, Norovirus - Pending ANCA, anti-proteinase 3, anti myeloperoxidase - Pending stool calprotectin - NPO for bowel rest #Pyuria #Hematuria #Cystitis UA 12/26 showed WBC 27, RBC 27; negative leukocyte esterase, nitrites, and bacteria. Budding yeast present. Previously grew Morganella morganii on urine culture 12/21/17. CT A/P 12/26/24 shows bladder wall thickening, with concern for cystitis. Plan: - Urine culture pending #Insulin dependent DM Takes insuline glargine 33 units and Novolog at rehab center. Last meal breakfast, currently NPO. UA 12/26 glucose 4+ with budding yeast, likely uncontrolled. SGLT-2 not on home medication list. Plan: - Increase insulin degludec to 18 HS as patient is NPO - SSI - CTM glucose and insulin requirements tomorrow, will adjust accordingly #Hypertension Taking amlodipine 10 mg daily, clonidine 0.3 mg TID, and losartan 50 mg daily. BP 158/101 on admission, improved now to 122/64 after pain control. Plan: - Hold home meds at this time, restart if becomes hypertensive - CTM BP #Hx seizures Home med Keppra 1000mg BID. Plan: - Consider restarting Keppra tomorrow when no longer NPO Health Maintenance Disposition: management of sepsis secondary to GI infection, HAGMA, lactic acidosis DVT prophylaxis: Heparin SQ GI prophylaxis: IV protonix 40 mg daily Bowel regimen: Hold for now, TBD Diet: NPO CODE STATUS: FULL Patient plan of care was discussed with the resident, Dr. Downing, and attending physician, Dr. Pop. Patience Mckinnon, PGY-1 Attending Provider Attestation/Addendum Manuel, Lexie Pop, , attest that I was physically present for the levin portions of the service and evaluated the patient with the resident and I reviewed and discussed the case with the resident and agree with the resident's findings and plans of care as documented above Patient seen and eval this a.m. He states that he is feeling well. However, upon abdominal exam, patient swatted my hand away and stated that he had too much pain. Abdomen continues to be distended and tender to palpation. Small bowel follow-through was initiated overnight. Dye remains in the stomach. Surgeon recommends continue with NG tube and IV antibiotics and bowel rest at this time. Will follow-up with repeat KUBs. Patient has not had bowel movement yet. Low-grade fevers noted overnight. Continue IV antibiotics.
[2024-12-28] MEDS: HEPARIN SOD INJ 5000 UNIT/ML VIAL SC ×2 (14:03→21:03)
[2024-12-28 15:30] LABS: Lactate (Lactic Acid) 1.4 mMol/L (0.4-2.0)
--- NOTE | 2024-12-28 16:33 | PD.IMPROG ---
Documentation for date of: 12/28/24 Subjective Subjective Interval history: Small bowel follow-through in progress Distended loops of small bowel but the contrast is in the right colon as well Exam Vital Signs Temp Pulse Resp BP Pulse Ox O2 Del Method O2 Flow Rate 98.1 F 116 H 23 H 153/97 H 97 Room Air 2 12/28/24 12:00 12/28/24 12:00 12/28/24 12:00 12/28/24 12:00 12/28/24 12:00 12/28/24 12:00 12/26/24 09:07 Objective Labs 12/28/24 05:28 12/28/24 05:28 Labs: Laboratory Results - last 24 hr 12/28/24 12/28/24 05:28 15:20 WBC 14.0 H RBC 5.20 Hgb 13.4 L Hct 42.2 MCV 81 MCH 25.8 MCHC 31.8 RDW Std Deviation 43.0 Plt Count 183 Neut % (Auto) 90 H Lymph % (Auto) 7 L [place] % (Auto) 3 Eos % (Auto) 0 Baso % (Auto) 0 Neut # (Auto) 12.6 H Lymph # (Auto) 1.0 [place] # (Auto) 0.4 Eos # (Auto) 0.0 Baso # (Auto) 0.0 Immature Gran # (Auto) 0.07 H Absolute Nucleated RBC 0.00 Immature Gran % 1 H Nucleated RBC % 0 Sodium 145 Potassium 3.5 Chloride 105 Carbon Dioxide 27.1 Anion Gap 13 BUN 18 Creatinine 0.6 Estim Creat Clear Calc 133.3 eGFR > 60 BUN/Creatinine Ratio 30 H Glucose 232 H D Calculated Osmolality 297 H Lactic Acid 1.4 Calcium 9.2 Corrected Calcium 9.5 Phosphorus 2.1 L Magnesium 2.0 Total Bilirubin 0.9 D AST < 8 ALT 11 Alkaline Phosphatase 74 Total Protein 6.3 Albumin 3.6 Globulin 2.7 Albumin/Globulin Ratio 1.3 Impressions Impression: Small bowel obstruction/ileus Continue current management Assessment & Plan A&P Narrative # Abnormal CT scan of the abdomen pelvis showing inflammation seen this terminal ileum with increased stool burden Differential diagnosis in the setting of regional ileitis is inflammatory versus infectious Because of the large stool burden: Needs to be flushed out Plan KUB GoLytely flush If patient starts vomiting with the GoLytely insert NGT to intermittent [place] suction Will follow the patient ANCA antibody CRP Other medical problems include Hemorrhagic CVA with left-sided motor weakness Seizure disorder Essential hypertension Diabetes mellitus type 2 Thank you very much for the opportunity to participate in the care of this patient Time Spent With Patient Time: Total time spent is greater than 50% in coordination of care (as documented) at patient's floor/unit and/or counseling patient:
[2024-12-28] MEDS: INSULIN DEGLUDEC 5 UNIT/0.05 ML (PER 5 UNITS) 18 UNIT SC (20:26)
[2024-12-29] VITALS (8 sets, daily range): BP systolic 148–174; BP diastolic 84–101; PULSE 72–105; RESP 18–29; TEMP 36.6–37.2; O2SAT 92–93; BMI 28.6
[2024-12-29] MEDS: PIPER/TAZO 3.375 GM PREMIX 3.375 GM/50 ML BAG IV ×4 (05:27→23:49)
[2024-12-29] MEDS: HEPARIN SOD INJ 5000 UNIT/ML VIAL SC ×3 (05:28→21:18)
[2024-12-29 06:33] LABS: Basophils # (Auto) 0.0 Thou/mm3 (0.0-0.2); Basophils % (Auto) 0 % (0-2.5); Eosinophils # (Auto) 0.0 Thou/mm3 (0.0-0.5); Eosinophils % (Auto) 0 % (0-10); Hematocrit 37.4 % (41.0-53.0); Hemoglobin 12.1 g/dL (13.5-16.0); Immature Granulocytes Auto 0.11 Thou/mm3 (0.00-0.00); Lymphocytes # (Auto) 1.0 Thou/mm3 (1.0-4.8); Lymphocytes % (Auto) 7 % (10-50); Mean Corpuscular HGB Conc 32.4 g/dl (31.0-37.0); Mean Corpuscular Hemoglobin 26.1 pg (25.0-35.0); Mean Corpuscular Volume 81 fL (80-100); Monocytes # (Auto) 0.5 Thou/mm3 (0.0-0.8); Monocytes % (Auto) 4 % (0-12); Neutrophils # (Auto) 12.9 Thou/mm3 (1.8-7.7); Neutrophils % (Auto) 88 % (37-80); Nucleated Red Blood Cell # 0.00 Thou/mm3 (0.00-0.00); Nucleated Red Blood Cell % 0 /100 WBC (0); Platelet Count 190 Thou/mm3 (140-440); RDW Standard Deviation 42.8 fL (35.1-43.9); Red Blood Count 4.63 Miln/mm3 (4.50-5.90); White Blood Count 14.6 Thou/mm3 (3.8-10.6)
[2024-12-29 06:54] LABS: Alanine Aminotransferase < 7 U/L (10-49); Albumin, Serum 3.4 gm/dL (3.5-5.0); Albumin/Globulin Ratio 1.3 (1.2-2.2); Alkaline Phosphatase 77 U/L (46-116); Anion Gap 15 (7-16); Aspartate Amino Transferase < 10 U/L (0-34); BUN/Creatinine Ratio 23 Ratio (12-20); Bilirubin,Total 0.8 mg/dL (0.3-1.2); Blood Urea Nitrogen 14 mg/dL (9-23); Calcium 8.9 mg/dL (8.3-10.6); Calcium (Corrected) 9.4 mg/dL (8.5-10.1); Carbon Dioxide 25.8 mMol/L (20.0-31.0); Chloride 105 mMol/L (98-107); Creatinine (Component) 0.6 mg/dL (0.6-1.3); Estimated Creatinine Clearance 134.0 mL/min (>60); Globulin 2.6 gm/dL (2.3-3.5); Glucose 208 mg/dL (74-106); Magnesium 1.8 mg/dL (1.6-2.6); Osmolality,Calculated 297 (275-295); Phosphorous 2.1 mg/dL (2.4-5.1); Potassium 3.1 mMol/L (3.4-5.1); Sodium 146 mMol/L (136-145); Total Protein 6.0 gm/dL (5.7-8.2); eGFR > 60 See Note
--- NOTE | 2024-12-29 08:13 | XR_ITS ---
Examination: Abdomen AP single view Technique: AP portable supine abdomen, single view Exam date and time: December 29, 2024, 0828 hours INDICATIONS: Abdominal pain and distention this week. FINDINGS: Prominently air distended multiple small bowel loops Contrast in the stomach Orogastric tube in the stomach IMPRESSION: High-grade small bowel obstruction pattern
[2024-12-29] MEDS: levETIRAcetam INJ 100 MG/ML VIAL 5ML 500 MG IVP ×2 (09:22→20:43)
[2024-12-29] MEDS: ONDANSETRON INJ 2 MG/ML INJ 2 ML 4 MG IVP (09:23)
[2024-12-29] MEDS: Magnesium Sulfate 4 GM Ivpb 4 GM/50 ML BAG IV (09:27)
[2024-12-29] MEDS: POT PHOS 15 mMol in NS 250 ML 15 MMOL/250 ML BAG 62.5 MMOL IV (09:27)
[2024-12-29] MEDS: POTASSIUM CHL 10 mEq IVPB 10 MEQ/100 ML BAG 100 MEQ IV ×3 (09:27→14:40)
[2024-12-29] MEDS: RINGERS LACTATED 1000 ML 1,000 ML 100 ML IV ×2 (09:38→17:38)
--- NOTE | 2024-12-29 09:44 | PC.SS ---
Follow up note: More imaging status pending. On IV antibiotic. Pt will return to [facility] upon dc. SS spoke to Princess at [facility] they are requiring insurance authorization for pt to return.
--- NOTE | 2024-12-29 09:54 | PC.SS ---
SS has sent [facility] inquiry to [facility] [place].
--- NOTE | 2024-12-29 11:02 | ESPR_ITS ---
<Statement entered by Barrera Downing MD - 12/31/24 15:48> I have personally seen and examined the patient, agree with residents assessment and plan Patient plan of care was discussed with the attending physician, Dr. Mehdi Downing, PGY2 Documentation for date of: 12/29/24 Subjective Subjective Interval history: Glucose was elevated overnight, given 2 units lispro. This morning charted 2 bowel movements however he did not pass stool, only mucus output. Low intermittent suction continued overnight, drained approximately 600 cc of bilious fluid. Patient has not eaten for the past 4 days, will initiate PPN. Consulted dietitian, requested lipid panel, will start on PPN. Monitor BMP for refeeding syndrome. General surgery Dr Degroot is agreeable to plan. Still pending stool culture studies as patient has not had a bowel movement yet. Pending ANCA and other antibodies tests. Urine culture pending, patient is already on Zosyn since 12/26, will continue for 5-day course. Of note patient reports that he does not have history of seizures. He was prescribed Keppra 1000 twice daily status post his CVA. Will keep on Keppra 500 mg BID injection. Exam Vital Signs Temp Pulse Resp BP Pulse Ox O2 Del Method O2 Flow Rate 98 F 86 20 174/84 H 92 L Room Air 2 12/29/24 07:32 12/29/24 07:32 12/29/24 07:32 12/29/24 07:32 12/29/24 07:32 12/29/24 07:32 12/29/24 04:00 Narrative Exam Physical Exam General: [place] Citizen speaking elderly male. Awake and in no acute distress. Conversational and non-toxic appearing. HEENT: Normocephalic, atraumatic, mucous membranes moist. No facial droop. Heart: Tachycardic. Regular rate and rhythm, normal S1 and S2, no murmurs appreciated. Lungs: Clear to auscultation with no wheezing or crackles. Abdomen: Soft, distended, diffuse generalized tenderness, no bowel sounds. No guarding or rebound tenderness. Neurologic: Alert and oriented x3. 0/5 strength in LLE and LUE. Sensation appears to be intact in all extremities. Extremities: No lower extremity edema bilaterally. Skin: No rash or ecchymoses. Objective Labs 01/01/25 04:31 01/01/25 04:31 Labs: Laboratory Results - last 24 hr 12/28/24 12/29/24 15:20 05:54 WBC 14.6 H RBC 4.63 Hgb 12.1 L Hct 37.4 L MCV 81 MCH 26.1 MCHC 32.4 RDW Std Deviation 42.8 Plt Count 190 Neut % (Auto) 88 H Lymph % (Auto) 7 L [place] % (Auto) 4 Eos % (Auto) 0 Baso % (Auto) 0 Neut # (Auto) 12.9 H Lymph # (Auto) 1.0 [place] # (Auto) 0.5 Eos # (Auto) 0.0 Baso # (Auto) 0.0 Immature Gran # (Auto) 0.11 H Absolute Nucleated RBC 0.00 Immature Gran % 1 H Nucleated RBC % 0 Sodium 146 H Potassium 3.1 L Chloride 105 Carbon Dioxide 25.8 Anion Gap 15 BUN 14 Creatinine 0.6 Estim Creat Clear Calc 134.0 eGFR > 60 BUN/Creatinine Ratio 23 H Glucose 208 H Calculated Osmolality 297 H Lactic Acid 1.4 Calcium 8.9 Corrected Calcium 9.4 Phosphorus 2.1 L Magnesium 1.8 Total Bilirubin 0.8 AST < 10 ALT < 7 L Alkaline Phosphatase 77 Total Protein 6.0 Albumin 3.4 L Globulin 2.6 Albumin/Globulin Ratio 1.3 Quality Measures Quality Measures none Assessment & Plan Assessment Current Active Medications: Generic Name Dose Route Start Last Admin Trade Name Freq PRN Reason Stop Dose Admin Acetaminophen 650 mg 12/28/24 10:15 Acetaminophen Supp 650 Mg Supp NM 01/27/25 10:14 Q6HR PRN FEVER > 101 Dextrose 25 ml 12/26/24 15:36 Dextrose 50%-Water Inj 50 Ml Syringe IV 01/25/25 15:35 Q15MIN PRN BG 50-70 responsive npo pt Dextrose 50 ml 12/26/24 15:36 Dextrose 50%-Water Inj 50 Ml Syringe IV 01/25/25 15:35 Q15MIN PRN BG <50 OR BG <70 & pt unresponsive Glucagon 1 mg 12/26/24 15:36 Glucagon Inj 1 Mg Vial IM Q15MIN PRN BG <70, and no IV access Heparin Sodium (Porcine) 5,000 unit 12/26/24 15:30 12/29/24 05:28 Heparin Sod Inj 5000 Unit/Ml Vial SC 01/09/25 15:29 5,000 unit Q8HR GIOVANNI Administration Hydromorphone HCl 1 mg 12/26/24 15:31 12/27/24 22:42 Hydromorphone Inj 2 Mg/Ml Vial IVP 12/31/24 15:30 1 mg Q6HR PRN Administration PAIN SCALE 4-10(Mod-Sev Piperacillin/Tazobactam/Dextrose 3.375 gm in 50 mls @ 100 mls/hr 12/26/24 18:00 12/29/24 05:27 Zosyn IV 01/02/25 17:59 100 mls/hr Q6HR GIOVANNI Administration Lactated Ringer's 1,000 mls @ 100 mls/hr 12/26/24 16:46 12/29/24 09:38 Lactated Ringers IV 01/25/25 16:45 100 mls/hr .Q10H GIOVANNI Administration Potassium Phosphate 15 mmol in 250 mls @ 62.5 mls/hr 12/29/24 07:37 12/29/24 09:27 Pot Phos 15 Mmol In Ns 250 Ml IV 12/29/24 11:36 62.5 mls/hr X1 ONE Administration Magnesium Sulfate 4 gm in 50 mls @ 12.5 mls/hr 12/29/24 07:56 12/29/24 09:27 Magnesium Sulfate Ivpb IV 12/29/24 11:55 12.5 mls/hr X1 ONE Administration Potassium Chloride 10 meq in 100 mls @ 100 mls/hr 12/29/24 07:56 12/29/24 09:27 Kcl Ivpb IV 12/29/24 11:55 100 mls/hr Q1H GIOVANNI Administration Insulin Degludec 18 unit 12/28/24 21:00 12/28/24 20:26 Insulin Degludec 5 Unit/0.05 Ml (Per 5 Units) SC 01/27/25 20:59 18 unit HS GIOVANNI Administration Insulin Human Lispro 0 unit 12/26/24 18:00 12/29/24 05:21 Insulin Lispro (Admelog) 1 Unit/0.01 Ml Unit SC 01/25/25 17:59 Not Given Q6HR GIOVANNI Protocol Labetalol HCl 10 mg 12/29/24 07:57 Labetalol Inj 5 Mg/Ml Vial 20 Ml IVP 01/28/25 07:56 Q12HR PRN hypertension Ondansetron HCl 4 mg 12/26/24 15:34 12/29/24 09:23 Ondansetron Inj 2 Mg/Ml Inj 2 Ml IVP 01/25/25 15:33 4 mg Q6HR PRN Administration NAUSEA OR VOMITING Protocol Pantoprazole Sodium 40 mg 12/26/24 15:45 12/29/24 09:23 Pantoprazole Inj 40 Mg Vial IVP 01/25/25 15:44 40 mg QDAY GIOVANNI Administration Plan Patient is a 54 year old male with PMH of 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 #SBO #Hx chronic constipation #c/f SBO given history History of SBO, no surgeries or decompression done. Last bowel movement 4 days ago, reports only has bowel movements once a week. Able to pass gas. Had 1 episode of nonbilious nonblood emesis in ED. Last meal was breakfast day of admission. Endorsed lower abdominal pain, however has generalized tenderness. As above, CT A/P did not note obstruction, only terminal ilietis. Has extensive prn bowel regimen at rehab center (has been there since 06/2023 for residual left sided weakness from CVA). Consulted surgeon Dr. Degroot, not concerned for SBO, no need for surgical intervention at this time. Recommended consulting GI. Plan: - Consulted surgery Dr. Degorot for SBO: NG tube decompression until SBO resolves with reduced inflammation, low intermittent suction - Consulted GI Dr. Oliveira, appreciate recommendations: Pending resolution of SBO - Hold bowel regimen until bowel movement - Pain regimen: Tylenol and IV dilaudid 1mg q6hr prn - NPO - Start PPN - Monitor BMP for refeeding syndrome - Consulted dietitian, appreciate recommendations - IV protonix 40 mg - IV Zofran 4mg prn #Sepsis 2/2 #Terminal ileitis, infectious versus inflammatory #Leukocytosis, reactive versus infectious cause #HAGMA, resolved #Lactic acidosis, resolved On admission, meets 3/4 SIRS criteria: tachycardic HR 137, temp increased to 104F, WBC 18,000. Anion gap 18 and bicarb 19.8. Procalc elevated at 3.1. Admission lactic acid elevated 6.0 -> 5.5 with fluid bolus. Beta hydroxybutyrate mildly increased at 0.7 and glucose 366, low concern for DKA/HHS. Patient denies history of inflammatory bowel or autoimmune diseases, however patient is a poor historian. Patient denies blood in stool or diarrhea as of late. Denies recent sick contacts or usual food exposure. CT A/P 12/26 shows severe terminal ilietis and cystitis, no bowel obstruction observed. BCX 12/26 negative. WBC 18.0 (admission) -> 18.6. CRP elevated at 31.6. Resolution of lactic acidosis and HAGMA w IV fluids. Plan: - IV Zosyn for SBP prophylaxis (12/26- - Follow up stool culture, stool WBCs, Giardia, Norovirus - Pending ANCA, anti-proteinase 3, anti myeloperoxidase - Pending stool calprotectin - NPO for bowel rest #Pyuria #Hematuria #Cystitis UA 12/26 showed WBC 27, RBC 27; negative leukocyte esterase, nitrites, and bacteria. Budding yeast present. Previously grew Morganella morganii on urine culture 12/21/17. CT A/P 12/26/24 shows bladder wall thickening, with concern for cystitis. Plan: - Urine culture pending #Insulin dependent DM Takes insuline glargine 33 units and Novolog at rehab center. Last meal breakfast, currently NPO. UA 12/26 glucose 4+ with budding yeast, likely uncontrolled. SGLT-2 not on home medication list. Plan: - Insulin degludec to 18 HS as patient is NPO - SSI step 2 - CTM glucose and insulin requirements tomorrow, will adjust accordingly #Hypertension Taking amlodipine 10 mg daily, clonidine 0.3 mg TID, and losartan 50 mg daily. BP 158/101 on admission, improved now to 122/64 after pain control. Plan: - Hold home meds as patient is n.p.o. -IV labetalol 10 mg as needed if SBP greater than 180 - CTM BP #Stroke prophylaxis Home med Keppra 1000mg BID. Patient has no history of seizures. Was started prophylactically after his stroke. Plan: - Will continue Keppra 500 mg twice daily injections. Health Maintenance Disposition: management of sepsis secondary to GI infection, HAGMA, lactic acidosis DVT prophylaxis: Heparin SQ GI prophylaxis: IV protonix 40 mg daily Bowel regimen: Hold for now, TBD Diet: NPO, PPN CODE STATUS: FULL Patient plan of care was discussed with the resident, Dr. Downing, and attending physician, Dr. Pop. Patience cMkinnon, PGY-1 Attending Provider Attestation/Addendum Face to face evaluation was performed by me. I have personally seen and examined the patient. I discussed the assessment and plan with the entire medicine team. I reviewed available medical records, imaging studies, laboratory results. I agree with the above subjective data, objective findings, assessment and plan except as corrected by me or noted below Terminal ileitis Small bowel obstruction Lactic acidosis Abdominal distention pain due to above - Continue broad-spectrum antibiotics continue NG with low intermittent suction, general surgery and gastroenterology consulted?follow recommendations - More than > 30 minutes spent on the encounter
[2024-12-29] MEDS: POTASSIUM CHL 10 mEq IVPB 10 MEQ/100 ML BAG 70 MEQ IV (11:55)
[2024-12-29] MEDS: INSULIN LISPRO (AdmeLOG) 1 UNIT/0.01 ML UNIT SC ×3 (12:03→23:48)
--- NOTE | 2024-12-29 12:55 | ESPR_ITS ---
Documentation for date of: 12/29/24 Subjective Subjective Narrative: Patient is seen and examined. He states that his pain has improved and he is passing flatus. There were 2 bowel movements recorded in his medical records per nursing report Exam Vital Signs Temp Pulse Resp BP Pulse Ox O2 Del Method O2 Flow Rate 98.3 F 103 H 18 148/86 H 93 L Room Air 2 12/29/24 12:00 12/29/24 12:00 12/29/24 12:00 12/29/24 12:00 12/29/24 12:00 12/29/24 12:00 12/29/24 04:00 Constitutional Constitutional: no acute distress Routine Abdominal Exam Comments: Abdomen is soft and still distended. He has tenderness to palpation, no per itonitis at this time Assessment & Plan Plan Keep NG tube to low continue suction given bowel rest for 24 hours and then will attempt trial of clamping the NG tube again. Continue IV antibiotics
--- NOTE | 2024-12-29 13:43 | PC.DIETICIAN ---
Nutrition prescription PPN: D5% AA4.25% at 120 ml/hr with 500 ml 20% lipid 3 times a week (). Start at 60 ml/hr for 8 hrs, then advance to goal of 120 ml/hr. 2880 ml volume, 122 g AA, 144 g dextrose, 1408 total calories, NPC 919. GIR=1.3 / LIR=0.6
[2024-12-29 13:55] LABS: Cardiac Risk Estimate 4.1 RATIO (4.0-6.7); Cholesterol 103 mg/dL (132-200); HDL Cholesterol 25 mg/dL (40-60); LDL Cholesterol,Calculated 46 mg/dL (0-130); Triglycerides 161 mg/dL (30-150)
[2024-12-29] MEDS: POTASSIUM PHOS IV (18:02)
[2024-12-29] MEDS: AMINO ACID IV (18:02)
[2024-12-29] MEDS: [UNRECOGNIZED DRUG - OTHER] IV (18:02)
[2024-12-29] MEDS: MULTIVITAMIN IV (18:02)
[2024-12-29] MEDS: INSULIN DEGLUDEC 5 UNIT/0.05 ML (PER 5 UNITS) 10 UNIT SC (20:43)
--- NOTE | 2024-12-29 21:26 | ESPR_ITS ---
Documentation for date of: 12/29/24 Subjective Subjective Interval history: Soft abdomen with hypoactive bowel sounds intermittent Gomco suction to continue Exam Vital Signs Temp Pulse Resp BP Pulse Ox O2 Del Method O2 Flow Rate 98.4 F 86 20 164/94 H 93 L Room Air 2 12/29/24 16:00 12/29/24 16:00 12/29/24 16:00 12/29/24 16:00 12/29/24 16:00 12/29/24 16:00 12/29/24 04:00 Objective Labs 12/29/24 05:54 12/29/24 05:54 Labs: Laboratory Results - last 24 hr 12/29/24 05:54 WBC 14.6 H RBC 4.63 Hgb 12.1 L Hct 37.4 L MCV 81 MCH 26.1 MCHC 32.4 RDW Std Deviation 42.8 Plt Count 190 Neut % (Auto) 88 H Lymph % (Auto) 7 L Rogers % (Auto) 4 Eos % (Auto) 0 Baso % (Auto) 0 Neut # (Auto) 12.9 H Lymph # (Auto) 1.0 Rogers # (Auto) 0.5 Eos # (Auto) 0.0 Baso # (Auto) 0.0 Immature Gran # (Auto) 0.11 H Absolute Nucleated RBC 0.00 Immature Gran % 1 H Nucleated RBC % 0 Sodium 146 H Potassium 3.1 L Chloride 105 Carbon Dioxide 25.8 Anion Gap 15 BUN 14 Creatinine 0.6 Estim Creat Clear Calc 134.0 eGFR > 60 BUN/Creatinine Ratio 23 H Glucose 208 H Calculated Osmolality 297 H Calcium 8.9 Corrected Calcium 9.4 Phosphorus 2.1 L Magnesium 1.8 Total Bilirubin 0.8 AST < 10 ALT < 7 L Alkaline Phosphatase 77 Total Protein 6.0 Albumin 3.4 L Globulin 2.6 Albumin/Globulin Ratio 1.3 Triglycerides 161 H Cholesterol 103 L LDL Cholesterol, Calc 46 HDL Cholesterol 25 L Cholesterol/HDL Ratio 4.1 Impressions Impression: Resolving small bowel obstruction/ileus Continue NGT suction Assessment & Plan A&P Narrative # Abnormal CT scan of the abdomen pelvis showing inflammation seen this terminal ileum with increased stool burden Differential diagnosis in the setting of regional ileitis is inflammatory versus infectious Because of the large stool burden: Needs to be flushed out Plan KUB GoLytely flush If patient starts vomiting with the GoLytely insert NGT to intermittent Gomco suction Will follow the patient ANCA antibody CRP Other medical problems include Hemorrhagic CVA with left-sided motor weakness Seizure disorder Essential hypertension Diabetes mellitus type 2 Thank you very much for the opportunity to participate in the care of this patient Time Spent With Patient Time: Total time spent is greater than 50% in coordination of care (as documented) at patient's floor/unit and/or counseling patient:
[2024-12-30] VITALS: BP 155/95; PULSE 78; RESP 33; TEMP 37.4; O2SAT 93
[2024-12-30 04:00] VITALS: BP 148/92; PULSE 90; PULSE 97; RESP 25; TEMP 36.9; O2SAT 93
[2024-12-30] MEDS: RINGERS LACTATED 1000 ML 1,000 ML 100 ML IV ×2 (05:09→14:12)
[2024-12-30] MEDS: INSULIN LISPRO (AdmeLOG) 1 UNIT/0.01 ML UNIT SC ×3 (05:09→17:21)
[2024-12-30] MEDS: HEPARIN SOD INJ 5000 UNIT/ML VIAL SC ×3 (05:09→21:50)
[2024-12-30] MEDS: PIPER/TAZO 3.375 GM PREMIX 3.375 GM/50 ML BAG IV ×3 (05:10→17:21)
[2024-12-30 05:25] VITALS: BMI 28.1
[2024-12-30 05:34] LABS: Basophils # (Auto) 0.0 Thou/mm3 (0.0-0.2); Basophils % (Auto) 0 % (0-2.5); Eosinophils # (Auto) 0.0 Thou/mm3 (0.0-0.5); Eosinophils % (Auto) 0 % (0-10); Hematocrit 38.4 % (41.0-53.0); Hemoglobin 12.2 g/dL (13.5-16.0); Immature Granulocytes Auto 0.11 Thou/mm3 (0.00-0.00); Lymphocytes # (Auto) 1.3 Thou/mm3 (1.0-4.8); Lymphocytes % (Auto) 9 % (10-50); Mean Corpuscular HGB Conc 31.8 g/dl (31.0-37.0); Mean Corpuscular Hemoglobin 25.9 pg (25.0-35.0); Mean Corpuscular Volume 82 fL (80-100); Monocytes # (Auto) 0.6 Thou/mm3 (0.0-0.8); Monocytes % (Auto) 4 % (0-12); Neutrophils # (Auto) 11.9 Thou/mm3 (1.8-7.7); Neutrophils % (Auto) 85 % (37-80); Nucleated Red Blood Cell # 0.00 Thou/mm3 (0.00-0.00); Nucleated Red Blood Cell % 0 /100 WBC (0); Platelet Count 161 Thou/mm3 (140-440); RDW Standard Deviation 42.5 fL (35.1-43.9); Red Blood Count 4.71 Miln/mm3 (4.50-5.90); White Blood Count 13.9 Thou/mm3 (3.8-10.6)
[2024-12-30 06:09] LABS: Alanine Aminotransferase < 7 U/L (10-49); Albumin, Serum 3.4 gm/dL (3.5-5.0); Albumin/Globulin Ratio 1.4 (1.2-2.2); Alkaline Phosphatase 92 U/L (46-116); Anion Gap 12 (7-16); Aspartate Amino Transferase 10 U/L (0-34); BUN/Creatinine Ratio 16 Ratio (12-20); Bilirubin,Total 1.0 mg/dL (0.3-1.2); Blood Urea Nitrogen 8 mg/dL (9-23); Calcium 8.8 mg/dL (8.3-10.6); Calcium (Corrected) 9.3 mg/dL (8.5-10.1); Carbon Dioxide 26.2 mMol/L (20.0-31.0); Chloride 102 mMol/L (98-107); Creatinine (Component) 0.5 mg/dL (0.6-1.3); Estimated Creatinine Clearance 156.3 mL/min (>60); Globulin 2.5 gm/dL (2.3-3.5); Glucose 216 mg/dL (74-106); Magnesium 2.0 mg/dL (1.6-2.6); Osmolality,Calculated 284 (275-295); Phosphorous 2.9 mg/dL (2.4-5.1); Potassium 3.4 mMol/L (3.4-5.1); Sodium 140 mMol/L (136-145); Total Protein 5.9 gm/dL (5.7-8.2); eGFR > 60 See Note
[2024-12-30 08:00] VITALS: BP 166/93; PULSE 70; PULSE 82; RESP 21; TEMP 36.9; O2SAT 97
[2024-12-30] MEDS: levETIRAcetam INJ 100 MG/ML VIAL 5ML 500 MG IVP ×2 (08:42→21:42)
[2024-12-30] MEDS: POTASSIUM CHL 10 mEq IVPB 10 MEQ/100 ML BAG 100 MEQ IV ×3 (08:44→11:00)
[2024-12-30 12:00] VITALS: BP 164/101; PULSE 72; PULSE 86; RESP 20; TEMP 36.7; O2SAT 96
[2024-12-30] MEDS: HYDROmorphone INJ 2 MG/ML VIAL 1 MG IVP (12:55)
--- NOTE | 2024-12-30 13:31 | PD.SURPROG ---
Documentation for date of: 12/30/24 Subjective Subjective Narrative: Patient is seen and examined. He is resting comfortably, his pain is improving. He states that he has been passing flatus but no bowel movement Exam Vital Signs Temp Pulse Resp BP Pulse Ox O2 Del Method O2 Flow Rate 98.1 F 72 20 164/101 H 96 Room Air 2 12/30/24 12:00 12/30/24 12:00 12/30/24 12:00 12/30/24 12:00 12/30/24 12:00 12/30/24 12:00 12/29/24 04:00 Constitutional Constitutional: no acute distress Routine Abdominal Exam Comments: His abdomen still distended with tenderness to deep palpation, however softer than yesterday. No evidence of diffuse peritonitis at this time Assessment & Plan Assessment Additional comments: Small bowel obstruction secondary to ileitis Plan PPN was started. Keep n.p.o. with NG tube to suction. Continue IV antibiotics. If NG tube output is decreased will start clamping the NG tube tomorrow
[2024-12-30] MEDS: MULTIVITAMIN IV (14:25)
[2024-12-30] MEDS: POT CHL ADDITIVE IV (14:25)
[2024-12-30] MEDS: [UNRECOGNIZED DRUG - OTHER] IV (14:25)
[2024-12-30] MEDS: AMINO ACID IV (14:25)
[2024-12-30 16:00] VITALS: BP 154/93; PULSE 105; PULSE 98; RESP 31; TEMP 36.8; O2SAT 97
--- NOTE | 2024-12-30 17:05 | ESPR_ITS ---
Documentation for date of: 12/30/24 Subjective Subjective Interval history: No acute overnight events. Patient is still complaining of abdominal pain which is decreasing. Vitals are stable. No further febrile episodes are noted. Vitals are stable and noted to have mildly elevated blood pressure. Labs showed downtrending WBC count 13.9, rest of the labs are unremarkable. Noted to have 2 bowel movements which is mucoid but does not have actual stool. General surgeon, Dr. Degroot is following the patient and recommended that if the NG tube output is decreasing we will start clamping the NG tube tomorrow. Will continue NG tube suctioning and will continue PPN. Blood cultures came back as GPC in 1 bottle, other culture showed no growth after 48 hours. Will repeat blood cultures. Will wait for the final cultures and add antibiotic accordingly Exam Vital Signs Temp Pulse Resp BP Pulse Ox O2 Del Method O2 Flow Rate 98.1 F 72 20 164/101 H 96 Room Air 2 12/30/24 12:00 12/30/24 12:00 12/30/24 12:12/30/24 12:12/30/24 12:12/30/24 12:12/29/24 04:00 Narrative Exam General: Awake. lying comfortably on the bed HEENT: Normocephalic, atraumatic, mucous membranes moist. Heart: Regular rate and rhythm, no murmurs. Lungs: Clear to auscultation with no wheezing or crackles. Abdomen: Soft, mildly distended, moderate tenderness throughout the abdomen, decreased bowel sounds. Neurologic: Alert and oriented x3, noted weakness in left half of the body. Extremities: No edema. noted scratch estes on left lower extremity Skin: No rash or ecchymoses. Objective Labs 01/01/25 04:31 01/01/25 04:31 Labs: Laboratory Results - last 24 hr 12/30/24 04:50 WBC 13.9 H RBC 4.71 Hgb 12.2 L Hct 38.4 L MCV 82 MCH 25.9 MCHC 31.8 RDW Std Deviation 42.5 Plt Count 161 Neut % (Auto) 85 H Lymph % (Auto) 9 L [place] % (Auto) 4 Eos % (Auto) 0 Baso % (Auto) 0 Neut # (Auto) 11.9 H Lymph # (Auto) 1.3 [place] # (Auto) 0.6 Eos # (Auto) 0.0 Baso # (Auto) 0.0 Immature Gran # (Auto) 0.11 H Absolute Nucleated RBC 0.00 Immature Gran % 1 H Nucleated RBC % 0 Sodium 140 Potassium 3.4 Chloride 102 Carbon Dioxide 26.2 Anion Gap 12 BUN 8 L Creatinine 0.5 L Estim Creat Clear Calc 156.3 eGFR > 60 BUN/Creatinine Ratio 16 Glucose 216 H Calculated Osmolality 284 Calcium 8.8 Corrected Calcium 9.3 Phosphorus 2.9 Magnesium 2.0 Total Bilirubin 1.0 AST 10 ALT < 7 L Alkaline Phosphatase 92 Total Protein 5.9 Albumin 3.4 L Globulin 2.5 Albumin/Globulin Ratio 1.4 Quality Measures Quality Measures none Assessment & Plan Assessment Current Active Medications: Generic Name Dose Route Start Last Admin Trade Name Freq PRN Reason Stop Dose Admin Acetaminophen 650 mg 12/28/24 10:15 Acetaminophen Supp 650 Mg Supp HI 01/27/25 10:14 Q6HR PRN FEVER > 101 Dextrose 25 ml 12/26/24 15:36 Dextrose 50%-Water Inj 50 Ml Syringe IV 01/25/25 15:35 Q15MIN PRN BG 50-70 responsive npo pt Dextrose 50 ml 12/26/24 15:36 Dextrose 50%-Water Inj 50 Ml Syringe IV 01/25/25 15:35 Q15MIN PRN BG <50 OR BG <70 & pt unresponsive Glucagon 1 mg 12/26/24 15:36 Glucagon Inj 1 Mg Vial IM Q15MIN PRN BG <70, and no IV access Heparin Sodium (Porcine) 5,000 unit 12/26/24 15:30 12/30/24 14:13 Heparin Sod Inj 5000 Unit/Ml Vial SC 01/09/25 15:29 5,000 unit Q8HR GIOVANNI Administration Hydromorphone HCl 1 mg 12/26/24 15:31 12/30/24 12:55 Hydromorphone Inj 2 Mg/Ml Vial IVP 12/31/24 15:30 1 mg Q6HR PRN Administration PAIN SCALE 4-10(Mod-Sev Piperacillin/Tazobactam/Dextrose 3.375 gm in 50 mls @ 100 mls/hr 12/26/24 18:00 12/30/24 12:55 Zosyn IV 01/02/25 17:59 100 mls/hr Q6HR GIOVANNI Administration Lactated Ringer's 1,000 mls @ 100 mls/hr 12/26/24 16:46 12/30/24 14:12 Lactated Ringers IV 01/25/25 16:45 100 mls/hr .Q10H GIOVANNI Administration Fat Emulsion Intravenous 500 mls @ 32 mls/hr 12/30/24 18:00 Intralipid 20% Iv IV 01/29/25 17:59 [email or web address] GIOVANNI Potassium Chloride 40 meq/ 2,030 mls @ 120 mls/hr 12/30/24 14:45 12/30/24 14:25 Multivitamins/Minerals 10 ml/ IV 01/01/25 00:34 120 mls/hr Amino Acids/Electrolytes/ .[id number] GIOVANNI Administration Dextrose Insulin Degludec 15 unit 12/30/24 21:00 Insulin Degludec 5 Unit/0.05 Ml (Per 5 Units) SC 01/29/25 20:59 HS GIOVANNI Insulin Human Lispro 0 unit 12/26/24 18:00 12/30/24 11:34 Insulin Lispro (Admelog) 1 Unit/0.01 Ml Unit SC 01/25/25 17:59 4 unit Q6HR GIOVANNI Administration Protocol Labetalol HCl 10 mg 12/29/24 07:57 Labetalol Inj 5 Mg/Ml Vial 20 Ml IVP 01/28/25 07:56 Q12HR PRN hypertension Levetiracetam 500 mg 12/29/24 21:00 12/30/24 08:42 Levetiracetam Inj 100 Mg/Ml Vial 5ml IVP 01/28/25 20:59 500 mg Q12HR IGOVANNI Administration Ondansetron HCl 4 mg 12/26/24 15:34 12/29/24 09:23 Ondansetron Inj 2 Mg/Ml Inj 2 Ml IVP 01/25/25 15:33 4 mg Q6HR PRN Administration NAUSEA OR VOMITING Protocol Pantoprazole Sodium 40 mg 12/26/24 15:45 12/30/24 08:43 Pantoprazole Inj 40 Mg Vial IVP 01/25/25 15:44 40 mg QDAY GIOVANNI Administration Plan Patient is a 54 year old male with PMH of 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 #SBO #Hx chronic constipation #c/f SBO given history History of SBO, no surgeries or decompression done. Last bowel movement 4 days ago, reports only has bowel movements once a week. Able to pass gas. Had 1 episode of nonbilious nonblood emesis in ED. Last meal was breakfast day of admission. Endorsed lower abdominal pain, however has generalized tenderness. As above, CT A/P did not note obstruction, only terminal ilietis. Has extensive prn bowel regimen at rehab center (has been there since 06/2023 for residual left sided weakness from CVA). Consulted surgeon Dr. Degroot, not concerned for SBO, no need for surgical intervention at this time. Recommended consulting GI. Plan: - Consulted surgery Dr. Degroot for SBO: NG tube decompression until SBO resolves with reduced inflammation, low intermittent suction - Consulted GI Dr. Oliveira, appreciate recommendations: Pending resolution of SBO - Hold bowel regimen until bowel movement - Pain regimen: Tylenol and IV dilaudid 1mg q6hr prn - NPO - Started PPN - Monitor BMP for refeeding syndrome - Consulted dietitian, appreciate recommendations - IV protonix 40 mg - IV Zofran 4mg prn #Sepsis 2/2 #Terminal ileitis, infectious versus inflammatory #Leukocytosis, reactive versus infectious cause #HAGMA, resolved #Lactic acidosis, resolved On admission, meets 3/4 SIRS criteria: tachycardic HR 137, temp increased to 104F, WBC 18,000. Anion gap 18 and bicarb 19.8. Procalc elevated at 3.1. Admission lactic acid elevated 6.0 -> 5.5 with fluid bolus. Beta hydroxybutyrate mildly increased at 0.7 and glucose 366, low concern for DKA/HHS. Patient denies history of inflammatory bowel or autoimmune diseases, however patient is a poor historian. Patient denies blood in stool or diarrhea as of late. Denies recent sick contacts or usual food exposure. CT A/P 12/26 shows severe terminal ilietis and cystitis, no bowel obstruction observed. BCX 12/26 negative. WBC 18.0 (admission) -> 18.6. CRP elevated at 31.6. Resolution of lactic acidosis and HAGMA w IV fluids. Plan: - IV Zosyn for SBP prophylaxis (12/26- - Follow up stool culture, stool WBCs, Giardia, Norovirus - Pending ANCA, anti-proteinase 3, anti myeloperoxidase - Pending stool calprotectin - NPO for bowel rest #Pyuria #Hematuria #Cystitis UA 12/26 showed WBC 27, RBC 27; negative leukocyte esterase, nitrites, and bacteria. Budding yeast present. Previously grew Morganella morganii on urine culture 12/21/17. CT A/P 12/26/24 shows bladder wall thickening, with concern for cystitis. Plan: - Urine culture showed yeast #Insulin dependent DM Takes insuline glargine 33 units and Novolog at rehab center. Last meal breakfast, currently NPO. UA 12/26 glucose 4+ with budding yeast, likely uncontrolled. SGLT-2 not on home medication list. Plan: - Insulin degludec to 18 HS as patient is NPO - SSI step 2 - CTM glucose and insulin requirements tomorrow, will adjust accordingly #Hypertension Taking amlodipine 10 mg daily, clonidine 0.3 mg TID, and losartan 50 mg daily. BP 158/101 on admission, improved now to 122/64 after pain control. Plan: - Hold home meds as patient is n.p.o. - IV labetalol 10 mg as needed if SBP greater than 180 - CTM BP #Stroke prophylaxis Home med Keppra 1000mg BID. Patient has no history of seizures. Likely was started prophylactically after his stroke. Plan: - Will continue Keppra 500 mg twice daily injections. Health Maintenance Disposition: management of sepsis secondary to GI infection, HAGMA, lactic acidosis DVT prophylaxis: Heparin SQ GI prophylaxis: IV protonix 40 mg daily Bowel regimen: Hold for now, TBD Diet: NPO, PPN CODE STATUS: FULL Patient plan of care was discussed with the attending physician, Dr. Mehdi Downing, PGY2 Attending Provider Attestation/Addendum Face to face evaluation was performed by me. I have personally seen and examined the patient. I discussed the assessment and plan with the entire medicine team. I reviewed available medical records, imaging studies, laboratory results. I agree with the above subjective data, objective findings, assessment and plan except as corrected by me or noted below Terminal ileitis Small bowel obstruction Lactic acidosis Abdominal distention pain due to above - Continue broad-spectrum antibiotics continue NG with low intermittent suction, general surgery and gastroenterology consulted?follow recommendations - Monitor vitals and labs closely, consider starting More than > 30 minutes spent on the encounter
[2024-12-30] MEDS: FAT EMULSIONS 20% IV 500 ML 32 ML IV (17:21)
--- NOTE | 2024-12-30 18:18 | ESPR_ITS ---
Documentation for date of: 12/30/24 Subjective Subjective Interval history: Patient evaluated NGT to intermittent suction Passing flatus On PPN Exam Vital Signs Temp Pulse Resp BP Pulse Ox O2 Del Method O2 Flow Rate 98.1 F 105 H 20 164/101 H 96 Room Air 2 12/30/24 12:00 12/30/24 16:00 12/30/24 12:00 12/30/24 12:00 12/30/24 12:00 12/30/24 12:00 12/29/24 04:00 Objective Labs 12/30/24 04:50 12/30/24 04:50 Labs: Laboratory Results - last 24 hr 12/30/24 04:50 WBC 13.9 H RBC 4.71 Hgb 12.2 L Hct 38.4 L MCV 82 MCH 25.9 MCHC 31.8 RDW Std Deviation 42.5 Plt Count 161 Neut % (Auto) 85 H Lymph % (Auto) 9 L Sullivan % (Auto) 4 Eos % (Auto) 0 Baso % (Auto) 0 Neut # (Auto) 11.9 H Lymph # (Auto) 1.3 Sullivan # (Auto) 0.6 Eos # (Auto) 0.0 Baso # (Auto) 0.0 Immature Gran # (Auto) 0.11 H Absolute Nucleated RBC 0.00 Immature Gran % 1 H Nucleated RBC % 0 Sodium 140 Potassium 3.4 Chloride 102 Carbon Dioxide 26.2 Anion Gap 12 BUN 8 L Creatinine 0.5 L Estim Creat Clear Calc 156.3 eGFR > 60 BUN/Creatinine Ratio 16 Glucose 216 H Calculated Osmolality 284 Calcium 8.8 Corrected Calcium 9.3 Phosphorus 2.9 Magnesium 2.0 Total Bilirubin 1.0 AST 10 ALT < 7 L Alkaline Phosphatase 92 Total Protein 5.9 Albumin 3.4 L Globulin 2.5 Albumin/Globulin Ratio 1.4 Impressions Impression: Small bowel obstruction due to most likely regional ileitis improving Continue conservative manage with NGT Once things are completely resolved would consider doing a colonoscopy if the colon can be prepped for intubation terminal ileum and biopsies look for evidence of inflammatory bowel disease Assessment & Plan A&P Narrative # Abnormal CT scan of the abdomen pelvis showing inflammation seen this terminal ileum with increased stool burden Differential diagnosis in the setting of regional ileitis is inflammatory versus infectious Because of the large stool burden: Needs to be flushed out Plan KUB GoLytely flush If patient starts vomiting with the GoLytely insert NGT to intermittent Gomco suction Will follow the patient ANCA antibody CRP Other medical problems include Hemorrhagic CVA with left-sided motor weakness Seizure disorder Essential hypertension Diabetes mellitus type 2 Thank you very much for the opportunity to participate in the care of this patient Time Spent With Patient Time: Total time spent is greater than 50% in coordination of care (as documented) at patient's floor/unit and/or counseling patient:
[2024-12-30 20:00] VITALS: BP 146/101; PULSE 95; RESP 18; TEMP 36.9; O2SAT 95
[2024-12-30] MEDS: INSULIN DEGLUDEC 5 UNIT/0.05 ML (PER 5 UNITS) 15 UNIT SC (22:03)
[2024-12-31] VITALS (9 sets, daily range): BP systolic 136–168; BP diastolic 93–102; PULSE 71–120; RESP 19–25; TEMP 36.2–36.7; O2SAT 93–95; BMI 29.0
[2024-12-31] MEDS: PIPER/TAZO 3.375 GM PREMIX 3.375 GM/50 ML BAG IV ×2 (00:07→05:13)
[2024-12-31] MEDS: INSULIN LISPRO (AdmeLOG) 1 UNIT/0.01 ML UNIT SC ×5 (00:23→23:40)
[2024-12-31] MEDS: HYDROmorphone INJ 2 MG/ML VIAL 1 MG IVP ×4 (00:30→23:21)
[2024-12-31] MEDS: RINGERS LACTATED 1000 ML 1,000 ML 100 ML IV (02:47)
[2024-12-31] MEDS: HEPARIN SOD INJ 5000 UNIT/ML VIAL SC ×3 (05:17→21:12)
--- NOTE | 2024-12-31 06:00 | XR_ITS ---
Examination: Abdomen AP single view Technique: AP portable supine abdomen, single view Exam date and time: December 31, 2024, 0637 hrs., Comparison 12/29/2024 Indications: Abdominal distention this week. Findings: Contrast present in the colon, however, multiple prominently air distended small bowel loops. No free air. Lung bases clear. Orogastric tube in the stomach Impression: Small bowel obstruction pattern
[2024-12-31 06:17] LABS: Basophils # (Auto) 0.1 Thou/mm3 (0.0-0.2); Basophils % (Auto) 0 % (0-2.5); Eosinophils # (Auto) 0.1 Thou/mm3 (0.0-0.5); Eosinophils % (Auto) 1 % (0-10); Hematocrit 40.3 % (41.0-53.0); Hemoglobin 13.2 g/dL (13.5-16.0); Immature Granulocytes Auto 0.61 Thou/mm3 (0.00-0.00); Lymphocytes # (Auto) 1.9 Thou/mm3 (1.0-4.8); Lymphocytes % (Auto) 14 % (10-50); Mean Corpuscular HGB Conc 32.8 g/dl (31.0-37.0); Mean Corpuscular Hemoglobin 26.4 pg (25.0-35.0); Mean Corpuscular Volume 81 fL (80-100); Monocytes # (Auto) 0.9 Thou/mm3 (0.0-0.8); Monocytes % (Auto) 6 % (0-12); Neutrophils # (Auto) 10.7 Thou/mm3 (1.8-7.7); Neutrophils % (Auto) 75 % (37-80); Nucleated Red Blood Cell # 0.00 Thou/mm3 (0.00-0.00); Nucleated Red Blood Cell % 0 /100 WBC (0); Platelet Count 147 Thou/mm3 (140-440); RDW Standard Deviation 41.1 fL (35.1-43.9); Red Blood Count 5.00 Miln/mm3 (4.50-5.90); White Blood Count 14.3 Thou/mm3 (3.8-10.6)
[2024-12-31 08:37] LABS: Alanine Aminotransferase 11 U/L (10-49); Albumin, Serum 3.3 gm/dL (3.5-5.0); Albumin/Globulin Ratio 1.2 (1.2-2.2); Alkaline Phosphatase 109 U/L (46-116); Anion Gap 16 (7-16); Aspartate Amino Transferase 28 U/L (0-34); BUN/Creatinine Ratio 14 Ratio (12-20); Bilirubin,Total 1.0 mg/dL (0.3-1.2); Blood Urea Nitrogen 7 mg/dL (9-23); Calcium 8.7 mg/dL (8.3-10.6); Calcium (Corrected) 9.3 mg/dL (8.5-10.1); Carbon Dioxide 19.0 mMol/L (20.0-31.0); Chloride 97 mMol/L (98-107); Creatinine (Component) 0.5 mg/dL (0.6-1.3); Estimated Creatinine Clearance 159.8 mL/min (>60); Globulin 2.8 gm/dL (2.3-3.5); Glucose 222 mg/dL (74-106); Magnesium 1.9 mg/dL (1.6-2.6); Osmolality,Calculated 269 (275-295); Phosphorous 3.4 mg/dL (2.4-5.1); Potassium 4.0 mMol/L (3.4-5.1); Sodium 132 mMol/L (136-145); Total Protein 6.1 gm/dL (5.7-8.2); eGFR > 60 See Note
--- NOTE | 2024-12-31 08:42 | PD.SURPROG ---
Documentation for date of: 12/31/24 Subjective Subjective Narrative: Patient is seen and examined. His pain is improving. 2 bowel movements were recorded in his chart, however he states that he has not had bowel movements Exam Vital Signs Temp Pulse Resp BP Pulse Ox O2 Del Method O2 Flow Rate 97.7 F 105 H 25 H 144/99 H 95 Room Air 2 12/31/24 08:00 12/31/24 08:00 12/31/24 08:00 12/31/24 08:00 12/31/24 08:00 12/31/24 08:00 12/29/24 04:00 Constitutional Constitutional: no acute distress Routine Abdominal Exam Comments: Abdomen is soft but distended. He has tenderness to palpation throughout the abdomen, no diffuse peritonitis Assessment & Plan Assessment Additional comments: X-ray shows contrast in the colon, however small bowel loops are still dilated Plan Continued NG tube decompression and IV antibiotics. Continue PPN
[2024-12-31] MEDS: MULTIVITAMIN INJ 10 ML in AMINO ACID 4.25%/D5W E 2,000 ML 120 ML IV (09:06)
[2024-12-31] MEDS: levETIRAcetam INJ 100 MG/ML VIAL 5ML 500 MG IVP ×2 (09:07→20:51)
--- NOTE | 2024-12-31 09:27 | ESPR_ITS ---
<Statement entered by Barrera Downing MD - 12/31/24 13:13> No acute overnight events. Able to pass flatus but still does not have any formed bowel movements. Noted to have 400 mL output from the NG tube suction overnight. Patient denies any other complaints and reported that his abdominal pain is decreasing and no further complaints of abdominal distention. Vitals are stable. Labs on this morning showed mild increase in WBC count, but noted to have elevation in other cell lines too. Sodium 132, chloride 97, bicarb 19, creatinine 0.5, glucose 222. Abdominal x-ray done this morning showed contrast in the colon and still noted to have multiple prominently distended small bowel loops. General surgeon, Dr. Degroot is following the patient and he recommended to continue NG tube decompression and IV antibiotics. Stopped Zosyn and will continue ceftriaxone, metronidazole for 2 more days. Will continue PPN. Ordered lactate in view of metabolic acidosis, will follow-up with the results and will start patient on fluids as needed. Will continue to monitor for bowel movements. I have personally seen and examined the patient, agree with the residents assessment and plan Patient plan of care was discussed with the attending physician, Dr. Mehdi Downing, PGY2 Documentation for date of: 12/31/24 Subjective Subjective Interval history: No acute overnight events. Repeat Gastrografin shows contrast in colon on last abdominal XR. Not able to pass gas yet this morning however was passing gas yesterday, mild improvement in abdominal pain. No bowel movements yet, only mucoid discharge. Noted about 400 cc of bilious fluid via NG tube suction this morning. WBC increased from yesterday. Completed IV Zosyn for SBP prophylaxis (12/26 - 12/31). In light of worsening leukocytosis, will start on IV ceftriaxone 1 g and IV metronidazole 500 mg twice daily for 2 more days. Will continue current management with low intermittent NG tube suction, will remain n.p.o. Continue PPN per dietary. Consider colonoscopy for IBD workup once inflammation and SBO is completely resolved, per GI Dr. Oliveira. Exam Vital Signs Temp Pulse Resp BP Pulse Ox O2 Del Method O2 Flow Rate 97.7 F 105 H 25 H 144/99 H 95 Room Air 2 12/31/24 08:00 12/31/24 08:00 12/31/24 08:00 12/31/24 08:00 12/31/24 08:00 12/31/24 08:00 12/29/24 04:00 Narrative Exam General: Awake. Lying comfortably on the bed. NG tube in place. HEENT: Normocephalic, atraumatic, mucous membranes moist. Heart: Regular rate and rhythm, no murmurs. Lungs: Clear to auscultation with no wheezing or crackles. Abdomen: Soft, mildly distended, moderate tenderness throughout the abdomen, decreased bowel sounds. Neurologic: Alert and oriented x3, noted weakness in left half of the body. Extremities: No edema. Scabbed scratch estes on left lower extremity. Skin: No rash or ecchymoses. Objective Labs 01/01/25 04:31 01/01/25 04:31 Labs: Laboratory Results - last 24 hr 12/31/24 05:32 WBC 14.3 H RBC 5.00 Hgb 13.2 L Hct 40.3 L MCV 81 MCH 26.4 MCHC 32.8 RDW Std Deviation 41.1 Plt Count 147 Neut % (Auto) 75 Lymph % (Auto) 14 [place] % (Auto) 6 Eos % (Auto) 1 Baso % (Auto) 0 Neut # (Auto) 10.7 H Lymph # (Auto) 1.9 [place] # (Auto) 0.9 H Eos # (Auto) 0.1 Baso # (Auto) 0.1 Immature Gran # (Auto) 0.61 H Absolute Nucleated RBC 0.00 Immature Gran % 4 H Nucleated RBC % 0 Sodium 132 L Potassium 4.0 D Chloride 97 L Carbon Dioxide 19.0 L Anion Gap 16 BUN 7 L Creatinine 0.5 L Estim Creat Clear Calc 159.8 eGFR > 60 BUN/Creatinine Ratio 14 Glucose 222 H Calculated Osmolality 269 L Calcium 8.7 Corrected Calcium 9.3 Phosphorus 3.4 Magnesium 1.9 Total Bilirubin 1.0 AST 28 ALT 11 Alkaline Phosphatase 109 Total Protein 6.1 Albumin 3.3 L Globulin 2.8 Albumin/Globulin Ratio 1.2 Quality Measures Quality Measures none Assessment & Plan Assessment Current Active Medications: Generic Name Dose Route Start Last Admin Trade Name Freq PRN Reason Stop Dose Admin Acetaminophen 650 mg 12/28/24 10:15 Acetaminophen Supp 650 Mg Supp [place] 01/27/25 10:14 Q6HR PRN FEVER > 101 Dextrose 25 ml 12/26/24 15:36 Dextrose 50%-Water Inj 50 Ml Syringe IV 01/25/25 15:35 Q15MIN PRN BG 50-70 responsive npo pt Dextrose 50 ml 12/26/24 15:36 Dextrose 50%-Water Inj 50 Ml Syringe IV 01/25/25 15:35 Q15MIN PRN BG <50 OR BG <70 & pt unresponsive Glucagon 1 mg 12/26/24 15:36 Glucagon Inj 1 Mg Vial IM Q15MIN PRN BG <70, and no IV access Heparin Sodium (Porcine) 5,000 unit 12/26/24 15:30 12/31/24 05:17 Heparin Sod Inj 5000 Unit/Ml Vial SC 01/09/25 15:29 5,000 unit Q8HR GIOVANNI Administration Hydromorphone HCl 1 mg 12/26/24 15:31 12/31/24 07:56 Hydromorphone Inj 2 Mg/Ml Vial IVP 12/31/24 15:30 1 mg Q6HR PRN Administration PAIN SCALE 4-10(Mod-Sev Lactated Ringer's 1,000 mls @ 100 mls/hr 12/26/24 16:46 12/31/24 02:47 Lactated Ringers IV 01/25/25 16:45 100 mls/hr .Q10H GIOVANNI Administration Fat Emulsion Intravenous 500 mls @ 32 mls/hr 12/30/24 18:00 12/30/24 17:21 Intralipid 20% Iv IV 01/29/25 17:59 32 mls/hr [id number] GIOVANNI Administration Multivitamins/Minerals 10 ml/ 2,010 mls @ 120 mls/hr 12/31/24 07:40 12/31/24 09:06 Amino Acids/Electrolytes/ IV 01/01/25 00:24 120 mls/hr Dextrose .[id number] GIOVANNI Administration Ceftriaxone Sodium/Dextrose 1 gm in 50 mls @ 100 mls/hr 12/31/24 08:57 Rocephin/D5w 1gm Iv Premix IV 01/07/25 08:56 QDAY GIOVANNI Metronidazole 500 mg in 100 mls @ 200 mls/hr 12/31/24 08:57 Flagyl 500 Mg Iv IV 01/07/25 08:56 Q8HR GIOVANNI Sodium Acetate 20 meq/ 2,024 mls @ 120 mls/hr 01/01/25 00:25 Magnesium Sulfate 2 gm/ IV 01/01/25 17:16 Multivitamins/Minerals 10 ml/ .[id number] GIOVANNI Amino Acids/Electrolytes/ Dextrose Insulin Degludec 15 unit 12/30/24 21:00 12/30/24 22:03 Insulin Degludec 5 Unit/0.05 Ml (Per 5 Units) SC 01/29/25 20:59 15 unit HS GIOVANNI Administration Insulin Human Lispro 0 unit 12/26/24 18:00 12/31/24 05:27 Insulin Lispro (Admelog) 1 Unit/0.01 Ml Unit SC 01/25/25 17:59 4 unit Q6HR GIOVANNI Administration Protocol Labetalol HCl 10 mg 12/29/24 07:57 Labetalol Inj 5 Mg/Ml Vial 20 Ml IVP 01/28/25 07:56 Q12HR PRN hypertension Levetiracetam 500 mg 12/29/24 21:00 12/31/24 09:07 Levetiracetam Inj 100 Mg/Ml Vial 5ml IVP 01/28/25 20:59 500 mg Q12HR GIOVANNI Administration Ondansetron HCl 4 mg 12/26/24 15:34 12/29/24 09:23 Ondansetron Inj 2 Mg/Ml Inj 2 Ml IVP 01/25/25 15:33 4 mg Q6HR PRN Administration NAUSEA OR VOMITING Protocol Pantoprazole Sodium 40 mg 12/26/24 15:45 12/31/24 09:06 Pantoprazole Inj 40 Mg Vial IVP 01/25/25 15:44 40 mg QDAY GIOVANNI Administration Plan Patient is a 54 year old male with PMH of 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 #SBO #Hx chronic constipation #c/f SBO given history History of SBO, no surgeries or decompression done. Last bowel movement 4 days ago, reports only has bowel movements once a week. Able to pass gas. Had 1 episode of nonbilious nonblood emesis in ED. Last meal was breakfast day of admission. Endorsed lower abdominal pain, however has generalized tenderness. As above, CT A/P did not note obstruction, only terminal ilietis. Has extensive prn bowel regimen at rehab center (has been there since 06/2023 for residual left sided weakness from CVA). Consulted surgeon Dr. Degroot, not concerned for SBO, no need for surgical intervention at this time. Recommended consulting GI. Repeat gastrografin 12/30-12/31 shows contrast in colon, obstruction improving. Plan: - Consulted surgery Dr. Degroot for SBO: continue low intermittent suction via NG tube, keep NPO, PPN on board - Consulted GI Dr. Oliveira, appreciate recommendations: Pending resolution of SBO, consider colonoscopy to diagnose possible IBD with complete resolution - Hold bowel regimen until bowel movement - Pain regimen: Tylenol and IV dilaudid 1mg q6hr prn - NPO - Continue PPN - Monitor BMP for refeeding syndrome, replete electrolytes as needed - Consulted dietitian, appreciate recommendations - IV protonix 40 mg - IV Zofran 4mg prn #Sepsis /2 #Terminal ileitis, infectious versus inflammatory #Leukocytosis, reactive versus infectious cause #HAGMA, resolved #Lactic acidosis, resolved On admission, meets 3/4 SIRS criteria: tachycardic HR 137, temp increased to 104F, WBC 18,000. Anion gap 18 and bicarb 19.8. Procalc elevated at 3.1. Admission lactic acid elevated 6.0 -> 5.5 with fluid bolus. Beta hydroxybutyrate mildly increased at 0.7 and glucose 366, low concern for DKA/HHS. Patient denies history of inflammatory bowel or autoimmune diseases, however patient is a poor historian. Patient denies blood in stool or diarrhea as of late. Denies recent sick contacts or usual food exposure. CT A/P 12/26 shows severe terminal ilietis and cystitis, no bowel obstruction observed. BCX 12/26 negative. WBC 18.0 (admission) -> 18.6. CRP elevated at 31.6. Resolution of lactic acidosis and HAGMA w IV fluids. Plan: - S/p IV Zosyn for SBP prophylaxis (12/26-12/31) - Start on IV CFX 1g and IV metronidazole 500 mg BID for 2 more days (12/31- - Follow up stool culture, stool WBCs, Giardia, Norovirus - Pending ANCA, anti-proteinase 3, anti myeloperoxidase - Pending stool calprotectin - NPO for bowel rest #Pyuria #Hematuria #Cystitis UA 12/26 showed WBC 27, RBC 27; negative leukocyte esterase, nitrites, and bacteria. Budding yeast present. Previously grew Morganella morganii on urine culture 12/21/17. CT A/P 12/26/24 shows bladder wall thickening, with concern for cystitis. UCx positive for yeast. 04/27 BCx grew Staph epidermis, likely contaminant. Not complaining of urinary symptoms. Plan: - Pending repeat BCx - CTM urinary symptoms #Insulin dependent DM Takes insuline glargine 33 units and Novolog at rehab center. Last meal breakfast, currently NPO. UA 12/26 glucose 4+ with budding yeast, likely uncontrolled. SGLT-2 not on home medication list. Plan: - Increase insulin degludec to 22 HS as patient is now receiving PPN - SSI step 2 - CTM glucose and insulin requirements tomorrow, will adjust accordingly #Hypertension Taking amlodipine 10 mg daily, clonidine 0.3 mg TID, and losartan 50 mg daily. BP 158/101 on admission, improved now to 122/64 after pain control. Plan: - Hold home meds as patient is n.p.o. - IV labetalol 10 mg as needed if SBP greater than 180 - CTM BP #Stroke prophylaxis Home med Keppra 1000mg BID. Patient has no history of seizures. Likely was started prophylactically after his stroke. Plan: - Keppra 500 mg twice daily injections Health Maintenance Disposition: management of sepsis secondary to GI infection, HAGMA, lactic acidosis DVT prophylaxis: Heparin SQ GI prophylaxis: IV protonix 40 mg daily Bowel regimen: Hold for now, TBD Diet: NPO, PPN CODE STATUS: FULL Patient plan of care was discussed with the resident, Dr. Downing, and attending physician, Dr. Harding. Patience Mckinnon, PGY-1 Attending Provider Attestation/Addendum Face to face evaluation was performed by me. I have personally seen and examined the patient. I discussed the assessment and plan with the entire medicine team. I reviewed available medical records, imaging studies, laboratory results. I agree with the above subjective data, objective findings, assessment and plan except as corrected by me or noted below Terminal ileitis Small bowel obstruction Lactic acidosis Abdominal distention pain due to above Change antibiotics from broad-spectrum Zosyn to IV ceftriaxone and metronidazole, gastroenterology was consulted appreciate help. General surgery was consulted?patient requires to continue with NG to suction due to persistent symptoms. Repeat small bowel x-ray showed some contrast in colon but still had dilated small bowel loops and clinically symptomatic. Continue broad-spectrum antibiotics continue NG with low intermittent suction, general surgery and gastroenterology consulted?follow recommendations - TPN parenteral nutrition started continue for now More than > 30 minutes spent on the encounter
[2024-12-31] MEDS: cefTRIAXone/D5w 1gm IV premix 1 GM/50 ML BAG IV (10:37)
[2024-12-31] MEDS: metroNIDAZOLE/NS 500 MG IVPB 500 MG/100 ML BAG 200 MG IV ×2 (11:30→21:10)
[2024-12-31 14:24] LABS: Lactate (Lactic Acid) 1.5 mMol/L (0.4-2.0)
--- NOTE | 2024-12-31 16:13 | PC.SS ---
Rounding: IV ABX for 2 more days, DC back to [facility]
--- NOTE | 2024-12-31 20:17 | PD.IMPROG ---
Documentation for date of: 12/31/24 Subjective Subjective Interval history: Still somewhat distended Hypoactive bowel sounds Exam Vital Signs Temp Pulse Resp BP Pulse Ox O2 Del Method O2 Flow Rate 97.8 F 116 H 20 136/95 H 94 L Room Air 2 12/31/24 16:00 12/31/24 18:24 12/31/24 16:00 12/31/24 16:00 12/31/24 16:00 12/31/24 16:00 12/29/24 04:00 Objective Labs 12/31/24 05:32 12/31/24 05:32 Labs: Laboratory Results - last 24 hr 12/31/24 12/31/24 05:32 13:44 WBC 14.3 H RBC 5.00 Hgb 13.2 L Hct 40.3 L MCV 81 MCH 26.4 MCHC 32.8 RDW Std Deviation 41.1 Plt Count 147 Neut % (Auto) 75 Lymph % (Auto) 14 [place] % (Auto) 6 Eos % (Auto) 1 Baso % (Auto) 0 Neut # (Auto) 10.7 H Lymph # (Auto) 1.9 [place] # (Auto) 0.9 H Eos # (Auto) 0.1 Baso # (Auto) 0.1 Immature Gran # (Auto) 0.61 H Absolute Nucleated RBC 0.00 Immature Gran % 4 H Nucleated RBC % 0 Sodium 132 L Potassium 4.0 D Chloride 97 L Carbon Dioxide 19.0 L Anion Gap 16 BUN 7 L Creatinine 0.5 L Estim Creat Clear Calc 159.8 eGFR > 60 BUN/Creatinine Ratio 14 Glucose 222 H Calculated Osmolality 269 L Lactic Acid 1.5 Calcium 8.7 Corrected Calcium 9.3 Phosphorus 3.4 Magnesium 1.9 Total Bilirubin 1.0 AST 28 ALT 11 Alkaline Phosphatase 109 Total Protein 6.1 Albumin 3.3 L Globulin 2.8 Albumin/Globulin Ratio 1.2 Impressions Impression: Small bowel obstruction/ileus Continue NGT suction Continue PPN Assessment & Plan A&P Narrative # Abnormal CT scan of the abdomen pelvis showing inflammation seen this terminal ileum with increased stool burden Differential diagnosis in the setting of regional ileitis is inflammatory versus infectious Because of the large stool burden: Needs to be flushed out Plan KUB GoLytely flush If patient starts vomiting with the GoLytely insert NGT to intermittent [place] suction Will follow the patient ANCA antibody CRP Other medical problems include Hemorrhagic CVA with left-sided motor weakness Seizure disorder Essential hypertension Diabetes mellitus type 2 Thank you very much for the opportunity to participate in the care of this patient Time Spent With Patient Time: Total time spent is greater than 50% in coordination of care (as documented) at patient's floor/unit and/or counseling patient:
[2024-12-31] MEDS: INSULIN DEGLUDEC 5 UNIT/0.05 ML (PER 5 UNITS) 22 UNIT SC (20:48)
[2024-12-31] MEDS: METOCLOPRAMIDE INJ 5 MG/ML VIAL 2 ML 10 MG IVP (20:55)
[2025-01-01] VITALS (8 sets, daily range): BP systolic 126–145; BP diastolic 76–110; PULSE 65–123; RESP 13–19; TEMP 35.2–37.1; O2SAT 92–98; BMI 28.2
[2025-01-01] MEDS: MAGNESIUM SULF IV (02:02)
[2025-01-01] MEDS: SODIUM ACET ADDITIVE IV (02:02)
[2025-01-01] MEDS: [UNRECOGNIZED DRUG - OTHER] IV (02:02)
[2025-01-01] MEDS: HYDROmorphone INJ 2 MG/ML VIAL 1 MG IVP ×3 (04:58→21:48)
[2025-01-01] MEDS: METOCLOPRAMIDE INJ 5 MG/ML VIAL 2 ML 10 MG IVP ×3 (05:01→21:05)
[2025-01-01] MEDS: metroNIDAZOLE/NS 500 MG IVPB 500 MG/100 ML BAG 200 MG IV ×3 (05:17→21:06)
[2025-01-01] MEDS: HEPARIN SOD INJ 5000 UNIT/ML VIAL SC ×3 (05:19→21:05)
[2025-01-01] MEDS: INSULIN LISPRO (AdmeLOG) 1 UNIT/0.01 ML UNIT SC ×3 (05:22→17:39)
[2025-01-01 05:31] LABS: Basophils # (Auto) 0.0 Thou/mm3 (0.0-0.2); Basophils % (Auto) 0 % (0-2.5); Eosinophils # (Auto) 0.1 Thou/mm3 (0.0-0.5); Eosinophils % (Auto) 1 % (0-10); Hematocrit 41.2 % (41.0-53.0); Hemoglobin 13.8 g/dL (13.5-16.0); Immature Granulocytes Auto 0.38 Thou/mm3 (0.00-0.00); Lymphocytes # (Auto) 1.9 Thou/mm3 (1.0-4.8); Lymphocytes % (Auto) 15 % (10-50); Mean Corpuscular HGB Conc 33.5 g/dl (31.0-37.0); Mean Corpuscular Hemoglobin 26.4 pg (25.0-35.0); Mean Corpuscular Volume 79 fL (80-100); Monocytes # (Auto) 0.7 Thou/mm3 (0.0-0.8); Monocytes % (Auto) 6 % (0-12); Neutrophils # (Auto) 9.3 Thou/mm3 (1.8-7.7); Neutrophils % (Auto) 75 % (37-80); Nucleated Red Blood Cell # 0.00 Thou/mm3 (0.00-0.00); Nucleated Red Blood Cell % 0 /100 WBC (0); Platelet Count 211 Thou/mm3 (140-440); RDW Standard Deviation 38.7 fL (35.1-43.9); Red Blood Count 5.23 Miln/mm3 (4.50-5.90); White Blood Count 12.4 Thou/mm3 (3.8-10.6)
[2025-01-01 05:58] LABS: Alanine Aminotransferase 18 U/L (10-49); Albumin, Serum 3.3 gm/dL (3.5-5.0); Albumin/Globulin Ratio 1.2 (1.2-2.2); Alkaline Phosphatase 106 U/L (46-116); Anion Gap 12 (7-16); Aspartate Amino Transferase 12 U/L (0-34); BUN/Creatinine Ratio 22 Ratio (12-20); Bilirubin,Total 1.0 mg/dL (0.3-1.2); Blood Urea Nitrogen 11 mg/dL (9-23); Calcium 8.6 mg/dL (8.3-10.6); Calcium (Corrected) 9.2 mg/dL (8.5-10.1); Carbon Dioxide 25.9 mMol/L (20.0-31.0); Chloride 94 mMol/L (98-107); Creatinine (Component) 0.5 mg/dL (0.6-1.3); Estimated Creatinine Clearance 159.8 mL/min (>60); Globulin 2.8 gm/dL (2.3-3.5); Glucose 217 mg/dL (74-106); Magnesium 2.0 mg/dL (1.6-2.6); Osmolality,Calculated 270 (275-295); Phosphorous 3.3 mg/dL (2.4-5.1); Potassium 3.4 mMol/L (3.4-5.1); Sodium 132 mMol/L (136-145); Total Protein 6.1 gm/dL (5.7-8.2); eGFR > 60 See Note
--- NOTE | 2025-01-01 07:36 | ESPR_ITS ---
<Statement entered by Barrera Downing MD - 01/02/25 17:20> No acute overnight events. Patient is still having abdominal pain, able to pass gas but did not have any bowel movements yet. Labs done this morning showed downtrending WBC. Still noted to have abdominal tenderness. Patient is noted to have a hiccups for which metoclopramide is started. Repeat abdominal x-ray was done today which showed distended small bowel loops. Will continue PPN and pain medications for now I have personally seen and examined the patient, agree with residents assessment and plan Patient plan of care was discussed with the attending physician, Dr. Mehdi Downing, PGY2 Documentation for date of: 01/01/25 Subjective Subjective Interval history: No acute overnight events. Continues to endorse lower abdominal pain, improving. Has not passed gas or any bowel movements. Schedule metoclopramide 10mg TID for hiccups. Per Dr. Degroot, will clamp NG tube this morning and obtain abdominal x-ray, shows significantly air distended small bowel loops. Has 200cc bilious fluid from NG tube, continuing PPN consisting of amino acids and fat emulsions. On dilaudid 1g q6hr for pain. Potassium was low and repleted accordingly. Patient will remain NPO for bowel rest, will re-evaluate tomorrow. Once NG tube removed, anticipate starting on clear liquids and weaning off PPN. WBC improving, will complete IV CFX and metronidazole for SBP prophylaxis tomorrow. Exam Vital Signs Temp Pulse Resp BP Pulse Ox O2 Del Method O2 Flow Rate 97.6 F 114 H 18 145/89 H 94 L Room Air 2 01/01/25 04:00 01/01/25 04:00 01/01/25 04:00 01/01/25 04:00 01/01/25 04:00 01/01/25 04:00 12/29/24 04:00 Narrative Exam Physical Exam General: Awake and in no acute distress. Conversational and non-toxic appearing. NG tube in place. Lying comfortably in bed. Bout of hiccups this morning. HEENT: Normocephalic, atraumatic, mucous membranes moist. Heart: Regular rate and rhythm, normal S1 and S2, no murmurs. Lungs: Clear to auscultation with no wheezing or crackles. Abdomen: Soft, mildly distended, moderate tenderness throughout the abdomen, decreased bowel sounds. Neurologic: Alert and oriented x3, weakness in left half of the body (chronic). Extremities: No edema. Scabbed scratch estes on left lower extremity. Skin: No rash or ecchymoses. Objective Labs 01/01/25 04:31 01/01/25 04:31 Labs: Laboratory Results - last 24 hr 12/31/24 12/31/24 01/01/25 05:32 13:44 04:31 WBC 12.4 H RBC 5.23 Hgb 13.8 Hct 41.2 MCV 79 L MCH 26.4 MCHC 33.5 RDW Std Deviation 38.7 Plt Count 211 D Neut % (Auto) 75 Lymph % (Auto) 15 [place] % (Auto) 6 Eos % (Auto) 1 Baso % (Auto) 0 Neut # (Auto) 9.3 H Lymph # (Auto) 1.9 [place] # (Auto) 0.7 Eos # (Auto) 0.1 Baso # (Auto) 0.0 Immature Gran # (Auto) 0.38 H Absolute Nucleated RBC 0.00 Immature Gran % 3 H Nucleated RBC % 0 Sodium 132 L 132 L Potassium 4.0 D 3.4 D Chloride 97 L 94 L Carbon Dioxide 19.0 L 25.9 Anion Gap 16 12 BUN 7 L 11 Creatinine 0.5 L 0.5 L Estim Creat Clear Calc 159.8 159.8 eGFR > 60 > 60 BUN/Creatinine Ratio 14 22 H Glucose 222 H 217 H Calculated Osmolality 269 L 270 L Lactic Acid 1.5 Calcium 8.7 8.6 Corrected Calcium 9.3 9.2 Phosphorus 3.4 3.3 Magnesium 1.9 2.0 Total Bilirubin 1.0 1.0 AST 28 12 ALT 11 18 Alkaline Phosphatase 109 106 Total Protein 6.1 6.1 Albumin 3.3 L 3.3 L Globulin 2.8 2.8 Albumin/Globulin Ratio 1.2 1.2 Quality Measures Quality Measures none Assessment & Plan Assessment Current Active Medications: Generic Name Dose Route Start Last Admin Trade Name Freq PRN Reason Stop Dose Admin Acetaminophen 650 mg 12/31/24 17:05 Acetaminophen Supp 650 Mg Supp DE 01/27/25 10:14 Q6HR PRN Fever > 101 or pain 1-3 Dextrose 25 ml 12/26/24 15:36 Dextrose 50%-Water Inj 50 Ml Syringe IV 01/25/25 15:35 Q15MIN PRN BG 50-70 responsive npo pt Dextrose 50 ml 12/26/24 15:36 Dextrose 50%-Water Inj 50 Ml Syringe IV 01/25/25 15:35 Q15MIN PRN BG <50 OR BG <70 & pt unresponsive Glucagon 1 mg 12/26/24 15:36 Glucagon Inj 1 Mg Vial IM Q15MIN PRN BG <70, and no IV access Heparin Sodium (Porcine) 5,000 unit 12/26/24 15:30 01/01/25 05:19 Heparin Sod Inj 5000 Unit/Ml Vial SC 01/09/25 15:29 5,000 unit Q8HR GIOVANNI Administration Hydromorphone HCl 1 mg 12/31/24 17:05 01/01/25 04:58 Hydromorphone Inj 2 Mg/Ml Vial IVP 01/05/25 17:03 1 mg Q6HR PRN Administration Pain 4-10 Fat Emulsion Intravenous 500 mls @ 32 mls/hr 12/30/24 18:00 12/30/24 17:21 Intralipid 20% Iv IV 01/29/25 17:59 32 mls/hr [id number] GIOVANNI Administration Ceftriaxone Sodium/Dextrose 1 gm in 50 mls @ 100 mls/hr 12/31/24 08:57 12/31/24 10:37 Rocephin/D5w 1gm Iv Premix IV 01/07/25 08:56 100 mls/hr QDAY GIOVANNI Administration Metronidazole 500 mg in 100 mls @ 200 mls/hr 12/31/24 08:57 01/01/25 05:17 Flagyl 500 Mg Iv IV 01/07/25 08:56 200 mls/hr Q8HR GIOVANNI Administration Sodium Acetate 20 meq/ 2,024 mls @ 120 mls/hr 01/01/25 00:25 01/01/25 02:02 Magnesium Sulfate 2 gm/ IV 01/01/25 17:16 120 mls/hr Multivitamins/Minerals 10 ml/ .[id number] GIOVANNI Administration Amino Acids/Electrolytes/ Dextrose Insulin Degludec 22 unit 12/31/24 21:00 12/31/24 20:48 Insulin Degludec 5 Unit/0.05 Ml (Per 5 Units) SC 01/30/25 20:59 22 unit HS GIOVANNI Administration Insulin Human Lispro 0 unit 12/26/24 18:00 01/01/25 05:22 Insulin Lispro (Admelog) 1 Unit/0.01 Ml Unit SC 01/25/25 17:59 3 unit Q6HR GIOVANNI Administration Protocol Labetalol HCl 10 mg 12/29/24 07:57 Labetalol Inj 5 Mg/Ml Vial 20 Ml IVP 01/28/25 07:56 Q12HR PRN hypertension Levetiracetam 500 mg 12/29/24 21:00 12/31/24 20:51 Levetiracetam Inj 100 Mg/Ml Vial 5ml IVP 01/28/25 20:59 500 mg Q12HR GIOVANNI Administration Metoclopramide HCl 10 mg 12/31/24 15:20 01/01/25 05:01 Metoclopramide Inj 5 Mg/Ml Vial 2 Ml IVP 01/30/25 15:29 10 mg TID PRN Administration hiccups Protocol Ondansetron HCl 4 mg 12/26/24 15:34 12/29/24 09:23 Ondansetron Inj 2 Mg/Ml Inj 2 Ml IVP 01/25/25 15:33 4 mg Q6HR PRN Administration NAUSEA OR VOMITING Protocol Pantoprazole Sodium 40 mg 12/26/24 15:45 12/31/24 09:06 Pantoprazole Inj 40 Mg Vial IVP 01/25/25 15:44 40 mg QDAY GIOVANNI Administration Plan Patient is a 54 year old male with PMH of 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 #SBO #Hx chronic constipation #c/f SBO given history History of SBO, no surgeries or decompression done. Last bowel movement 4 days ago, reports only has bowel movements once a week. Able to pass gas. Had 1 episode of nonbilious nonblood emesis in ED. Last meal was breakfast day of admission. Endorsed lower abdominal pain, however has generalized tenderness. As above, CT A/P did not note obstruction, only terminal ilietis. Has extensive prn bowel regimen at rehab center (has been there since 06/2023 for residual left sided weakness from CVA). Consulted surgeon Dr. Degroot, not concerned for SBO, no need for surgical intervention at this time. Recommended consulting GI. Repeat gastrografin 12/30-12/31 shows contrast in colon, obstruction improving. Plan: - Consulted surgery Dr. Degroot for SBO: XR abdomen today, clamp NG tube. Keep NPO. - Consulted GI Dr. Oliveira, appreciate recommendations: Pending resolution of SBO, consider colonoscopy to diagnose possible IBD with complete resolution - Hold bowel regimen until bowel movement - Pain regimen: Tylenol and IV dilaudid 1mg q6hr prn - NPO - Continue PPN, anticipate weaning when restarted on clear liquid diet - Monitor BMP for refeeding syndrome, replete electrolytes as needed - Consulted dietitian, appreciate recommendations - IV protonix 40 mg - IV Zofran 4mg prn #Sepsis /2 #Terminal ileitis, infectious versus inflammatory #Leukocytosis, reactive versus infectious cause #HAGMA, resolved #Lactic acidosis, resolved On admission, meets 3/4 SIRS criteria: tachycardic HR 137, temp increased to 104F, WBC 18,000. Anion gap 18 and bicarb 19.8. Procalc elevated at 3.1. Admission lactic acid elevated 6.0 -> 5.5 with fluid bolus. Beta hydroxybutyrate mildly increased at 0.7 and glucose 366, low concern for DKA/HHS. Patient denies history of inflammatory bowel or autoimmune diseases, however patient is a poor historian. Patient denies blood in stool or diarrhea as of late. Denies recent sick contacts or usual food exposure. CT A/P 12/26 shows severe terminal ilietis and cystitis, no bowel obstruction observed. BCX 12/26 negative. WBC 18.0 (admission) -> 18.6. CRP elevated at 31.6. Resolution of lactic acidosis and HAGMA w IV fluids. Plan: - S/p IV Zosyn for SBP prophylaxis (12/26-12/31) - Start on IV CFX 1g and IV metronidazole 500 mg BID for 2 more days (12/31-01/02) - Follow up stool culture, stool WBCs, Giardia, Norovirus - Pending ANCA, anti-proteinase 3, anti myeloperoxidase - Pending stool calprotectin - NPO for bowel rest #Pyuria #Hematuria #Cystitis UA 12/26 showed WBC 27, RBC 27; negative leukocyte esterase, nitrites, and bacteria. Budding yeast present. Previously grew Morganella morganii on urine culture 12/21/17. CT A/P 12/26/24 shows bladder wall thickening, with concern for cystitis. UCx positive for yeast. 04/27 BCx grew Staph epidermis, likely contaminant. Not complaining of urinary symptoms. Plan: - BCx negative for 24 hours - CTM urinary symptoms #Insulin dependent DM Takes insuline glargine 33 units and Novolog at rehab center. Last meal breakfast, currently NPO. UA 12/26 glucose 4+ with budding yeast, likely uncontrolled. SGLT-2 not on home medication list. Plan: - Increase insulin degludec to 28 HS as patient is now receiving PPN - SSI step 2 - CTM glucose and insulin requirements tomorrow, will adjust accordingly #Hypertension Taking amlodipine 10 mg daily, clonidine 0.3 mg TID, and losartan 50 mg daily. BP 158/101 on admission, improved now to 122/64 after pain control. Plan: - Hold home meds as patient is n.p.o. - IV labetalol 10 mg as needed if SBP greater than 180 - CTM BP #Stroke prophylaxis Home med Keppra 1000mg BID. Patient has no history of seizures. Likely was started prophylactically after his stroke. Plan: - Keppra 500 mg twice daily injections Health Maintenance Disposition: management of sepsis secondary to GI infection, HAGMA, lactic acidosis DVT prophylaxis: Heparin SQ GI prophylaxis: IV protonix 40 mg daily Bowel regimen: Hold for now, TBD Diet: NPO, PPN CODE STATUS: FULL Patient plan of care was discussed with the resident, Dr. Downing, and attending physician, Dr. Harding. Patience Mckinnon, PGY-1 Attending Provider Attestation/Addendum Face to face evaluation was performed by me. I have personally seen and examined the patient. I discussed the assessment and plan with the entire medicine team. I reviewed available medical records, imaging studies, laboratory results. I agree with the above subjective data, objective findings, assessment and plan except as corrected by me or noted below Terminal ileitis Small bowel obstruction Lactic acidosis Abdominal distention pain due to above C - continue antibiotics ceftriaxone and metronidazole IV instead of broad- spectrum Zosyn which we changed on 12/31/24. monitor clinical status closely plan was to clamp NG tube today and obtain abdominal imaging per surgery recommendations. Patient still having some abdominal distention and pain, unsure if he is ready for diet advancement defer this to surgery's expertise. On PPN parenteral nutrition?can start weaning once he is on oral diet, monitor very closely. More than > 30 minutes spent on the encounter
--- NOTE | 2025-01-01 08:08 | PD.SURPROG ---
Documentation for date of: 01/01/25 Subjective Subjective Narrative: Patient is seen and examined. He is resting comfortably. He states that his pain is improving. He had minimal output from the NG tube Exam Vital Signs Temp Pulse Resp BP Pulse Ox O2 Del Method O2 Flow Rate 96.7 F L 107 H 13 138/89 H 92 L Room Air 2 01/01/25 07:49 01/01/25 07:49 01/01/25 07:49 01/01/25 07:49 01/01/25 07:49 01/01/25 07:49 12/29/24 04:00 Constitutional Constitutional: no acute distress Routine Abdominal Exam Comments: Abdomen is soft but distended. He has tenderness to palpation throughout the abdomen, no rebound tenderness or peritonitis at this time Assessment & Plan Assessment Additional comments: Small bowel obstruction likely secondary to ileitis Plan Will obtain abdominal x-ray, clamp NG tube
--- NOTE | 2025-01-01 08:10 | XR_ITS ---
Examination: Abdomen AP single view Technique: AP portable supine abdomen, single view Exam date and time: January 01, 2025 0838 hours, comparison 12/31/2024 INDICATIONS: Follow-up post small bowel series FINDINGS: Contrast in the colon Air distended small bowel loops IMPRESSION: Significantly air distended small bowel loops, clinical correlation advised
[2025-01-01] MEDS: cefTRIAXone/D5w 1gm IV premix 1 GM/50 ML BAG IV (08:57)
[2025-01-01] MEDS: levETIRAcetam INJ 100 MG/ML VIAL 5ML 500 MG IVP ×2 (08:57→20:44)
[2025-01-01] MEDS: POTASSIUM CHL 10 mEq IVPB 10 MEQ/100 ML BAG 100 MEQ IV (08:58)
[2025-01-01 09:11] LABS: ANCA Screen NEGATIVE (NEGATIVE); Myeloperoxidase Ab <1.0 AI (<1.0); Proteinase-3 Ab <1.0 AI (<1.0)
--- NOTE | 2025-01-01 09:22 | PC.SS ---
Follow up note: Pt will return to [facility] upon dc. Pt is waiting to have bowel movement.
[2025-01-01] MEDS: POTASSIUM CHL 10 mEq IVPB 10 MEQ/100 ML BAG 75 MEQ IV ×3 (10:50→14:06)
--- NOTE | 2025-01-01 12:12 | PC.SS ---
Follow up note: Pt still waiting for bowel movement. Stool sample results pending. NG tube is clamped. SS has spoken to Princess from [facility] who explained insurance authorization is still pending. SS has sent updated inquiry using [employer] to [facility].
[2025-01-01] MEDS: MULTIVITAMIN IV (17:39)
[2025-01-01] MEDS: [UNRECOGNIZED DRUG - OTHER] IV (17:39)
[2025-01-01] MEDS: AMINO ACID IV (17:39)
[2025-01-01] MEDS: POT CHL ADDITIVE IV (17:39)
[2025-01-01] MEDS: INSULIN DEGLUDEC 5 UNIT/0.05 ML (PER 5 UNITS) 28 UNIT SC (20:45)
--- NOTE | 2025-01-01 21:40 | ESPR_ITS ---
Documentation for date of: 01/01/25 Subjective Subjective Interval history: Minimal drainage via the NGT prior to clamping Should have a repeat KUB in the morning Exam Vital Signs Temp Pulse Resp BP Pulse Ox O2 Del Method O2 Flow Rate 96.9 F 108 H 16 132/88 H 98 Room Air 2 01/01/25 16:00 01/01/25 16:00 01/01/25 16:00 01/01/25 16:00 01/01/25 16:00 01/01/25 16:00 01/01/25 12:00 Objective Labs 01/01/25 04:31 01/01/25 04:31 Labs: Laboratory Results - last 24 hr 12/27/24 01/01/25 05:38 04:31 WBC 12.4 H RBC 5.23 Hgb 13.8 Hct 41.2 MCV 79 L MCH 26.4 MCHC 33.5 RDW Std Deviation 38.7 Plt Count 211 D Neut % (Auto) 75 Lymph % (Auto) 15 [place] % (Auto) 6 Eos % (Auto) 1 Baso % (Auto) 0 Neut # (Auto) 9.3 H Lymph # (Auto) 1.9 [place] # (Auto) 0.7 Eos # (Auto) 0.1 Baso # (Auto) 0.0 Immature Gran # (Auto) 0.38 H Absolute Nucleated RBC 0.00 Immature Gran % 3 H Nucleated RBC % 0 Sodium 132 L Potassium 3.4 D Chloride 94 L Carbon Dioxide 25.9 Anion Gap 12 BUN 11 Creatinine 0.5 L Estim Creat Clear Calc 159.8 eGFR > 60 BUN/Creatinine Ratio 22 H Glucose 217 H Calculated Osmolality 270 L Calcium 8.6 Corrected Calcium 9.2 Phosphorus 3.3 Magnesium 2.0 Total Bilirubin 1.0 AST 12 ALT 18 Alkaline Phosphatase 106 Total Protein 6.1 Albumin 3.3 L Globulin 2.8 Albumin/Globulin Ratio 1.2 ANCA Screen NEGATIVE c-ANCA Titer TNP Anti-Proteinase 3 <1.0 p-ANCA Titer TNP Atypical p-ANCA Titer TNP Anti-Myeloperoxidase <1.0 Impressions Impression: Small bowel obstruction pathology is in the distal small bowel continue conservative management Assessment & Plan A&P Narrative # Abnormal CT scan of the abdomen pelvis showing inflammation seen this terminal ileum with increased stool burden Differential diagnosis in the setting of regional ileitis is inflammatory versus infectious Because of the large stool burden: Needs to be flushed out Plan KUB GoLytely flush If patient starts vomiting with the GoLytely insert NGT to intermittent [place]omco suction Will follow the patient ANCA antibody CRP Other medical problems include Hemorrhagic CVA with left-sided motor weakness Seizure disorder Essential hypertension Diabetes mellitus type 2 Thank you very much for the opportunity to participate in the care of this patient Time Spent With Patient Time: Total time spent is greater than 50% in coordination of care (as documented) at patient's floor/unit and/or counseling patient:
[2025-01-02] VITALS (8 sets, daily range): BP systolic 122–150; BP diastolic 90–106; PULSE 103–120; RESP 17–24; TEMP 35.7–37.1; O2SAT 93–96
[2025-01-02] MEDS: INSULIN LISPRO (AdmeLOG) 1 UNIT/0.01 ML UNIT SC ×5 (00:09→23:45)
[2025-01-02] MEDS: HEPARIN SOD INJ 5000 UNIT/ML VIAL SC ×3 (05:59→21:35)
[2025-01-02] MEDS: metroNIDAZOLE/NS 500 MG IVPB 500 MG/100 ML BAG 200 MG IV ×2 (06:02→13:34)
[2025-01-02 06:16] LABS: Basophils # (Auto) 0.0 Thou/mm3 (0.0-0.2); Basophils % (Auto) 0 % (0-2.5); Eosinophils # (Auto) 0.1 Thou/mm3 (0.0-0.5); Eosinophils % (Auto) 1 % (0-10); Hematocrit 38.9 % (41.0-53.0); Hemoglobin 12.8 g/dL (13.5-16.0); Immature Granulocytes Auto 0.35 Thou/mm3 (0.00-0.00); Lymphocytes # (Auto) 1.5 Thou/mm3 (1.0-4.8); Lymphocytes % (Auto) 12 % (10-50); Mean Corpuscular HGB Conc 32.9 g/dl (31.0-37.0); Mean Corpuscular Hemoglobin 25.9 pg (25.0-35.0); Mean Corpuscular Volume 79 fL (80-100); Monocytes # (Auto) 0.9 Thou/mm3 (0.0-0.8); Monocytes % (Auto) 7 % (0-12); Neutrophils # (Auto) 9.6 Thou/mm3 (1.8-7.7); Neutrophils % (Auto) 78 % (37-80); Nucleated Red Blood Cell # 0.00 Thou/mm3 (0.00-0.00); Nucleated Red Blood Cell % 0 /100 WBC (0); Platelet Count 213 Thou/mm3 (140-440); RDW Standard Deviation 39.1 fL (35.1-43.9); Red Blood Count 4.95 Miln/mm3 (4.50-5.90); White Blood Count 12.3 Thou/mm3 (3.8-10.6)
[2025-01-02 06:45] LABS: Alanine Aminotransferase 21 U/L (10-49); Albumin, Serum 3.2 gm/dL (3.5-5.0); Albumin/Globulin Ratio 1.1 (1.2-2.2); Alkaline Phosphatase 114 U/L (46-116); Anion Gap 11 (7-16); Aspartate Amino Transferase 21 U/L (0-34); BUN/Creatinine Ratio 26 Ratio (12-20); Bilirubin,Total 0.7 mg/dL (0.3-1.2); Blood Urea Nitrogen 13 mg/dL (9-23); Calcium 8.5 mg/dL (8.3-10.6); Calcium (Corrected) 9.1 mg/dL (8.5-10.1); Carbon Dioxide 24.3 mMol/L (20.0-31.0); Chloride 96 mMol/L (98-107); Creatinine (Component) 0.5 mg/dL (0.6-1.3); Estimated Creatinine Clearance 156.9 mL/min (>60); Globulin 2.9 gm/dL (2.3-3.5); Glucose 256 mg/dL (74-106); Magnesium 2.0 mg/dL (1.6-2.6); Osmolality,Calculated 271 (275-295); Phosphorous 3.1 mg/dL (2.4-5.1); Potassium 4.0 mMol/L (3.4-5.1); Sodium 131 mMol/L (136-145); Total Protein 6.1 gm/dL (5.7-8.2); eGFR > 60 See Note
--- NOTE | 2025-01-02 07:56 | ESPR_ITS ---
<Statement entered by Barrera Downing MD - 01/02/25 17:16> No acute overnight events. Patient is still complaining of lower abdominal pain and noted to have abdominal tenderness but did not have any bowel movements in the morning. 1 dose of lactulose 30 mg is given and patient noted to have a bowel movement. Labs done this morning showed downtrending WBC and did not show any other significant abnormality. Will monitor till tomorrow if the patient is having good bowel movements and if the white count is resolving, we will plan to discharge the patient after discussing with the general surgeon I have personally seen and examined the patient, agree with residents assessment and plan Patient plan of care was discussed with the attending physician, Dr. Jerome Downing, PGY2 Documentation for date of: 01/02/25 Subjective Subjective Interval history: No acute overnight events. Still complaining of lower abdominal pain, unchanged. Passed gas this morning. Repeat KUB this morning showed distended air filled small bowel loops. NG tube clamped since yesterday. Lactulose 30mg per Dr. Degroot, resulted in bowel movement. Will continue to monitor tomorrow. WBC downtrending, completed 2 days of metronidazole and CFX as of today, completing 7 day course of SBP prophylaxis. Consider colonoscopy per Dr. Oliveira prior to discharge. Exam Vital Signs Temp Pulse Resp BP Pulse Ox O2 Del Method O2 Flow Rate 97.0 F 114 H 19 145/106 H 95 Room Air 2 01/02/25 04:00 01/02/25 04:00 01/02/25 04:00 01/02/25 04:00 01/02/25 04:00 01/02/25 04:00 01/01/25 12:00 Narrative Exam Physical Exam General: Awake and in no acute distress. Conversational and non-toxic appearing. NG tube in place. Lying comfortably in bed. Bout of hiccups this morning. HEENT: Normocephalic, atraumatic, mucous membranes moist. Heart: Regular rate and rhythm, normal S1 and S2, no murmurs. Lungs: Clear to auscultation with no wheezing or crackles. Abdomen: Soft, mildly distended, moderate tenderness throughout the abdomen, decreased bowel sounds. Neurologic: Alert and oriented x3, weakness in left half of the body (chronic). Extremities: No edema. Scabbed scratch estes on left lower extremity. Skin: No rash or ecchymoses. Objective Labs 01/02/25 05:36 01/02/25 05:36 Labs: Laboratory Results - last 24 hr 12/27/24 01/02/25 05:38 05:36 WBC 12.3 H RBC 4.95 Hgb 12.8 L Hct 38.9 L MCV 79 L MCH 25.9 MCHC 32.9 RDW Std Deviation 39.1 Plt Count 213 Neut % (Auto) 78 Lymph % (Auto) 12 [place] % (Auto) 7 Eos % (Auto) 1 Baso % (Auto) 0 Neut # (Auto) 9.6 H Lymph # (Auto) 1.5 [place] # (Auto) 0.9 H Eos # (Auto) 0.1 Baso # (Auto) 0.0 Immature Gran # (Auto) 0.35 H Absolute Nucleated RBC 0.00 Immature Gran % 3 H Nucleated RBC % 0 Sodium 131 L Potassium 4.0 D Chloride 96 L Carbon Dioxide 24.3 Anion Gap 11 BUN 13 Creatinine 0.5 L Estim Creat Clear Calc 156.9 eGFR > 60 BUN/Creatinine Ratio 26 H Glucose 256 H Calculated Osmolality 271 L Calcium 8.5 Corrected Calcium 9.1 Phosphorus 3.1 Magnesium 2.0 Total Bilirubin 0.7 AST 21 ALT 21 Alkaline Phosphatase 114 Total Protein 6.1 Albumin 3.2 L Globulin 2.9 Albumin/Globulin Ratio 1.1 L ANCA Screen NEGATIVE c-ANCA Titer TNP Anti-Proteinase 3 <1.0 p-ANCA Titer TNP Atypical p-ANCA Titer TNP Anti-Myeloperoxidase <1.0 Quality Measures Quality Measures none Assessment & Plan Assessment Current Active Medications: Generic Name Dose Route Start Last Admin Trade Name Freq PRN Reason Stop Dose Admin Acetaminophen 650 mg 12/31/24 17:05 Acetaminophen Supp 650 Mg Supp CO 01/27/25 10:14 Q6HR PRN Fever > 101 or pain 1-3 Dextrose 25 ml 12/26/24 15:36 Dextrose 50%-Water Inj 50 Ml Syringe IV 01/25/25 15:35 Q15MIN PRN BG 50-70 responsive npo pt Dextrose 50 ml 12/26/24 15:36 Dextrose 50%-Water Inj 50 Ml Syringe IV 01/25/25 15:35 Q15MIN PRN BG <50 OR BG <70 & pt unresponsive Glucagon 1 mg 12/26/24 15:36 Glucagon Inj 1 Mg Vial IM Q15MIN PRN BG <70, and no IV access Heparin Sodium (Porcine) 5,000 unit 12/26/24 15:30 01/02/25 05:59 Heparin Sod Inj 5000 Unit/Ml Vial SC 01/09/25 15:29 5,000 unit Q8HR GIOVANNI Administration Hydromorphone HCl 1 mg 12/31/24 17:05 01/01/25 21:48 Hydromorphone Inj 2 Mg/Ml Vial IVP 01/05/25 17:03 1 mg Q6HR PRN Administration Pain 4-10 Fat Emulsion Intravenous 500 mls @ 32 mls/hr 12/30/24 18:00 12/30/24 17:21 Intralipid 20% Iv IV 01/29/25 17:59 32 mls/hr [email or web address] GIOVANNI Administration Ceftriaxone Sodium/Dextrose 1 gm in 50 mls @ 100 mls/hr 12/31/24 08:57 01/01/25 08:57 Rocephin/D5w 1gm Iv Premix IV 01/07/25 08:56 100 mls/hr QDAY GIOVANNI Administration Metronidazole 500 mg in 100 mls @ 200 mls/hr 12/31/24 08:57 01/02/25 06:02 Flagyl 500 Mg Iv IV 01/07/25 08:56 200 mls/hr Q8HR GIOVANNI Administration Potassium Chloride 20 meq/ 2,020 mls @ 120 mls/hr 01/01/25 17:00 01/01/25 17:39 Multivitamins/Minerals 10 ml/ IV 01/03/25 02:39 120 mls/hr Amino Acids/Electrolytes/ .[id number] GIOVANNI Administration Dextrose Insulin Degludec 28 unit 01/01/25 21:00 01/01/25 20:45 Insulin Degludec 5 Unit/0.05 Ml (Per 5 Units) SC 01/31/25 20:59 28 unit HS GIOVANNI Administration Insulin Human Lispro 0 unit 12/26/24 18:00 01/02/25 06:00 Insulin Lispro (Admelog) 1 Unit/0.01 Ml Unit SC 01/25/25 17:59 4 unit Q6HR GIOVANNI Administration Protocol Labetalol HCl 10 mg 12/29/24 07:57 Labetalol Inj 5 Mg/Ml Vial 20 Ml IVP 01/28/25 07:56 Q12HR PRN hypertension Levetiracetam 500 mg 12/29/24 21:00 01/01/25 20:44 Levetiracetam Inj 100 Mg/Ml Vial 5ml IVP 01/28/25 20:59 500 mg Q12HR GIOVANNI Administration Metoclopramide HCl 10 mg 12/31/24 15:20 01/01/25 21:05 Metoclopramide Inj 5 Mg/Ml Vial 2 Ml IVP 01/30/25 15:29 10 mg TID PRN Administration hiccups Protocol Ondansetron HCl 4 mg 12/26/24 15:34 12/29/24 09:23 Ondansetron Inj 2 Mg/Ml Inj 2 Ml IVP 01/25/25 15:33 4 mg Q6HR PRN Administration NAUSEA OR VOMITING Protocol Pantoprazole Sodium 40 mg 12/26/24 15:45 01/01/25 08:58 Pantoprazole Inj 40 Mg Vial IVP 01/25/25 15:44 40 mg QDAY GIOVANNI Administration Plan Patient is a 54 year old male with PMH of 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 #SBO #Hx chronic constipation #c/f SBO given history History of SBO, no surgeries or decompression done. Last bowel movement 4 days ago, reports only has bowel movements once a week. Able to pass gas. Had 1 episode of nonbilious nonblood emesis in ED. Last meal was breakfast day of admission. Endorsed lower abdominal pain, however has generalized tenderness. As above, CT A/P did not note obstruction, only terminal ilietis. Has extensive prn bowel regimen at rehab center (has been there since 06/2023 for residual left sided weakness from CVA). Consulted surgeon Dr. Degroot, not concerned for SBO, no need for surgical intervention at this time. Recommended consulting GI. Repeat gastrografin 12/30-12/31 shows contrast in colon, obstruction improving. Bowel movement s/p lactulose 30 mg x1 via NG tube. Plan: - Consulted surgery Dr. Degroot for SBO: XR abdomen today, clamp NG tube. Keep NPO. - Consulted GI Dr. Oliveira, appreciate recommendations: Pending resolution of SBO, consider colonoscopy to diagnose possible IBD with complete resolution - Pain regimen: Tylenol and IV dilaudid 1mg q6hr prn - NPO - Continue PPN - Anticipate starting on clear liquid diet if patient continues to have bowel movements, will wean PPN appropriately - Monitor BMP for refeeding syndrome, replete electrolytes as needed - Consulted dietitian, appreciate recommendations - IV protonix 40 mg - IV Zofran 4mg prn #Sepsis /2 #Terminal ileitis, infectious versus inflammatory #Leukocytosis, reactive versus infectious cause #HAGMA, resolved #Lactic acidosis, resolved On admission, meets 3/4 SIRS criteria: tachycardic HR 137, temp increased to 104F, WBC 18,000. Anion gap 18 and bicarb 19.8. Procalc elevated at 3.1. Admission lactic acid elevated 6.0 -> 5.5 with fluid bolus. Beta hydroxybutyrate mildly increased at 0.7 and glucose 366, low concern for DKA/HHS. Patient denies history of inflammatory bowel or autoimmune diseases, however patient is a poor historian. Patient denies blood in stool or diarrhea as of late. Denies recent sick contacts or usual food exposure. CT A/P 12/26 shows severe terminal ilietis and cystitis, no bowel obstruction observed. BCX 12/26 negative. WBC 18.0 (admission) -> 18.6. CRP elevated at 31.6. Resolution of lactic acidosis and HAGMA w IV fluids. ANCA, anti-proteinase 3, anti myeloperoxidase all negative. Plan: - S/p IV Zosyn for SBP prophylaxis (12/26-12/31) - IV CFX 1g and IV metronidazole 500 mg BID for 2 days (12/31-01/02) - Follow up stool culture, stool WBCs, Giardia, Norovirus - Pending stool calprotectin - NPO for bowel rest #Pyuria #Hematuria #Cystitis UA 12/26 showed WBC 27, RBC 27; negative leukocyte esterase, nitrites, and bacteria. Budding yeast present. Previously grew Morganella morganii on urine culture 12/21/17. CT A/P 12/26/24 shows bladder wall thickening, with concern for cystitis. UCx positive for yeast. 04/27 BCx grew Staph epidermis, likely contaminant. Not complaining of urinary symptoms. Repeat BCx negative. Plan: - CTM urinary symptoms #Insulin dependent DM Takes insuline glargine 33 units and Novolog at rehab center. Last meal breakfast, currently NPO. UA 12/26 glucose 4+ with budding yeast, likely uncontrolled. SGLT-2 not on home medication list. Plan: - Increase insulin degludec to 30 HS as patient is now receiving PPN - SSI step 3 - CTM glucose and insulin requirements tomorrow, will adjust accordingly #Hypertension Taking amlodipine 10 mg daily, clonidine 0.3 mg TID, and losartan 50 mg daily. BP 158/101 on admission, improved now to 122/64 after pain control. Plan: - Hold home meds as patient is n.p.o. - IV labetalol 10 mg as needed if SBP greater than 180 - CTM BP #Stroke prophylaxis Home med Keppra 1000mg BID. Patient has no history of seizures. Likely was started prophylactically after his stroke. Plan: - Keppra 500 mg twice daily injections Health Maintenance Disposition: management of sepsis secondary to GI infection, HAGMA, lactic acidosis DVT prophylaxis: Heparin SQ GI prophylaxis: IV protonix 40 mg daily Bowel regimen: Hold for now, TBD Diet: NPO, PPN CODE STATUS: FULL Patient plan of care was discussed with the resident, Dr. Downing, and attending physician, Dr. Harding. Patience Mckinnon, PGY-1 Attending Provider Attestation/Addendum I attest that I was physically present for the evaluation, physical examination, lab and imaging review of the patient with the residents. I discussed the case with the residents and agree with the findings and plans of care as documented above. At bedside today, patient continues to complain of abdominal distention and pain. He has been passing gas but did not have any bowel movements this morning. Denies any nausea and vomiting. X-ray KUB this morning showed significant air distended small bowel loops. Discussed with general surgery, recommended trial of laxative, ordered lactulose 30 mg x 1. WBC count has been downtrending, vital signs are stable except for mild tachycardia. Adjusted insulin regimen. Will closely monitor for abdominal symptoms and bowel movement. Filiberto Cano MD
[2025-01-02] MEDS: cefTRIAXone/D5w 1gm IV premix 1 GM/50 ML BAG IV (08:57)
[2025-01-02] MEDS: levETIRAcetam INJ 100 MG/ML VIAL 5ML 500 MG IVP ×2 (08:58→21:37)
[2025-01-02] MEDS: POT CHL ADDITIVE IV (08:59)
[2025-01-02] MEDS: AMINO ACID IV (08:59)
[2025-01-02] MEDS: [UNRECOGNIZED DRUG - OTHER] IV (08:59)
[2025-01-02] MEDS: MULTIVITAMIN IV (08:59)
--- NOTE | 2025-01-02 11:05 | XR_ITS ---
Examination: Abdomen AP single view Technique: AP portable supine abdomen, single view Exam date and time: January 02, 2025 1119 hours INDICATIONS: Abdominal pain and distention this week FINDINGS: Moderate colonic ileus Also significantly air distended small bowel loops Orogastric tube in the stomach satisfactory position. No free air. IMPRESSION: Significantly air distended small bowel loops remain
[2025-01-02 11:34] LABS: Free T4 (Free Thyroxine) 1.60 ng/dL (0.89-1.76); Thyroid Stimulating Hormone 4.56 uIU/mL (0.55-4.78)
[2025-01-02] MEDS: INSULIN DEGLUDEC 5 UNIT/0.05 ML (PER 5 UNITS) 8 UNIT SC (12:51)
[2025-01-02] MEDS: LACTULOSE SYRUP 20 GM/30 ML UDC 30 GM NG (15:20)
[2025-01-02] MEDS: FAT EMULSIONS 20% IV 500 ML 32 ML IV (17:25)
--- NOTE | 2025-01-02 19:32 | PC.NURSE ---
Report received, during shift report into room pt had pulled NGT out, per pt he sneezed and it came out. Pt has had two bowel movements after lactulose administration. Spoke with Dr. Degroot, re insert NGT if pt has vomiting.
[2025-01-02 20:17] LABS: Stool for WBCs 3+ (Negative)
[2025-01-02] MEDS: INSULIN DEGLUDEC 5 UNIT/0.05 ML (PER 5 UNITS) 33 UNIT SC (21:34)
--- NOTE | 2025-01-02 22:30 | ESPR_ITS ---
Documentation for date of: 01/02/25 Subjective Subjective Interval history: 1 bowel movement today after lactulose KUB done today still shows dilated loops of small bowel Abdomen remains distended Exam Vital Signs Temp Pulse Resp BP Pulse Ox O2 Del Method O2 Flow Rate 98.7 F 120 H 24 H 140/95 H 96 Room Air 2 01/02/25 20:00 01/02/25 20:00 01/02/25 20:00 01/02/25 20:00 01/02/25 20:00 01/02/25 20:00 01/01/25 12:00 Objective Labs 01/02/25 05:36 01/02/25 05:36 Labs: Laboratory Results - last 24 hr 01/02/25 01/02/25 05:36 16:59 WBC 12.3 H RBC 4.95 Hgb 12.8 L Hct 38.9 L MCV 79 L MCH 25.9 MCHC 32.9 RDW Std Deviation 39.1 Plt Count 213 Neut % (Auto) 78 Lymph % (Auto) 12 [place] % (Auto) 7 Eos % (Auto) 1 Baso % (Auto) 0 Neut # (Auto) 9.6 H Lymph # (Auto) 1.5 [place] # (Auto) 0.9 H Eos # (Auto) 0.1 Baso # (Auto) 0.0 Immature Gran # (Auto) 0.35 H Absolute Nucleated RBC 0.00 Immature Gran % 3 H Nucleated RBC % 0 Sodium 131 L Potassium 4.0 D Chloride 96 L Carbon Dioxide 24.3 Anion Gap 11 BUN 13 Creatinine 0.5 L Estim Creat Clear Calc 156.9 eGFR > 60 BUN/Creatinine Ratio 26 H Glucose 256 H Calculated Osmolality 271 L Calcium 8.5 Corrected Calcium 9.1 Phosphorus 3.1 Magnesium 2.0 Total Bilirubin 0.7 AST 21 ALT 21 Alkaline Phosphatase 114 Total Protein 6.1 Albumin 3.2 L Globulin 2.9 Albumin/Globulin Ratio 1.1 L TSH 4.56 Free T4 1.60 Stool for White Cells 3+ A Impressions Impression: Small bowel obstruction still significant dilated loops on KUB done today Continue current management Repeat KUB in the morning then will decide whether patient needs to be fed Assessment & Plan A&P Narrative # Abnormal CT scan of the abdomen pelvis showing inflammation seen this terminal ileum with increased stool burden Differential diagnosis in the setting of regional ileitis is inflammatory versus infectious Because of the large stool burden: Needs to be flushed out Plan KUB GoLytely flush If patient starts vomiting with the GoLytely insert NGT to intermittent [place] suction Will follow the patient ANCA antibody CRP Other medical problems include Hemorrhagic CVA with left-sided motor weakness Seizure disorder Essential hypertension Diabetes mellitus type 2 Thank you very much for the opportunity to participate in the care of this patient Time Spent With Patient Time: Total time spent is greater than 50% in coordination of care (as documented) at patient's floor/unit and/or counseling patient:
[2025-01-03] VITALS (11 sets, daily range): BP systolic 135–164; BP diastolic 90–99; PULSE 97–118; RESP 16–20; TEMP 36.2–36.8; O2SAT 95–98
[2025-01-03] MEDS: CALCIUM GLUCONATE IV (02:00)
[2025-01-03] MEDS: POT CHL ADDITIVE IV (02:00)
[2025-01-03] MEDS: [UNRECOGNIZED DRUG - OTHER] IV (02:00)
[2025-01-03] MEDS: MULTIVITAMIN IV (02:00)
[2025-01-03] MEDS: INSULIN LISPRO (AdmeLOG) 1 UNIT/0.01 ML UNIT SC ×3 (05:23→17:50)
[2025-01-03] MEDS: HEPARIN SOD INJ 5000 UNIT/ML VIAL SC ×3 (05:24→21:27)
[2025-01-03 05:47] LABS: Basophils # (Auto) 0.0 Thou/mm3 (0.0-0.2); Basophils % (Auto) 0 % (0-2.5); Eosinophils # (Auto) 0.1 Thou/mm3 (0.0-0.5); Eosinophils % (Auto) 0 % (0-10); Hematocrit 38.3 % (41.0-53.0); Hemoglobin 12.6 g/dL (13.5-16.0); Immature Granulocytes Auto 0.29 Thou/mm3 (0.00-0.00); Lymphocytes # (Auto) 1.6 Thou/mm3 (1.0-4.8); Lymphocytes % (Auto) 12 % (10-50); Mean Corpuscular HGB Conc 32.9 g/dl (31.0-37.0); Mean Corpuscular Hemoglobin 25.8 pg (25.0-35.0); Mean Corpuscular Volume 78 fL (80-100); Monocytes # (Auto) 1.0 Thou/mm3 (0.0-0.8); Monocytes % (Auto) 7 % (0-12); Neutrophils # (Auto) 10.1 Thou/mm3 (1.8-7.7); Neutrophils % (Auto) 78 % (37-80); Nucleated Red Blood Cell # 0.00 Thou/mm3 (0.00-0.00); Nucleated Red Blood Cell % 0 /100 WBC (0); Platelet Count 241 Thou/mm3 (140-440); RDW Standard Deviation 39.5 fL (35.1-43.9); Red Blood Count 4.89 Miln/mm3 (4.50-5.90); White Blood Count 13.0 Thou/mm3 (3.8-10.6)
--- NOTE | 2025-01-03 06:00 | XR_ITS ---
Examination: Abdomen AP single view Technique: AP portable supine abdomen, single view Exam date and time: January 03, 2025, 0545 hrs., Comparison January 02, 2025 Indications: Abdominal distention this week. Findings: Prominent air distended colon There remain multiple air distended small bowel loops No free air Impression: Severe small bowel ileus versus small bowel obstruction, clinical correlation advised
[2025-01-03 06:10] LABS: Alanine Aminotransferase 24 U/L (10-49); Albumin, Serum 3.5 gm/dL (3.5-5.0); Albumin/Globulin Ratio 1.3 (1.2-2.2); Alkaline Phosphatase 165 U/L (46-116); Anion Gap 12 (7-16); Aspartate Amino Transferase 23 U/L (0-34); BUN/Creatinine Ratio 20 Ratio (12-20); Bilirubin,Total 0.5 mg/dL (0.3-1.2); Blood Urea Nitrogen 10 mg/dL (9-23); Calcium 8.6 mg/dL (8.3-10.6); Calcium (Corrected) 9.0 mg/dL (8.5-10.1); Carbon Dioxide 21.7 mMol/L (20.0-31.0); Chloride 96 mMol/L (98-107); Creatinine (Component) 0.5 mg/dL (0.6-1.3); Estimated Creatinine Clearance 156.9 mL/min (>60); Globulin 2.8 gm/dL (2.3-3.5); Glucose 283 mg/dL (74-106); Magnesium 2.1 mg/dL (1.6-2.6); Osmolality,Calculated 269 (275-295); Phosphorous 3.7 mg/dL (2.4-5.1); Potassium 4.3 mMol/L (3.4-5.1); Sodium 130 mMol/L (136-145); Total Protein 6.3 gm/dL (5.7-8.2); eGFR > 60 See Note
[2025-01-03] MEDS: levETIRAcetam INJ 100 MG/ML VIAL 5ML 500 MG IVP ×2 (08:08→21:07)
--- NOTE | 2025-01-03 10:02 | XR_ITS ---
Examination: Small bowel series AP abdomen 3 views Date and time: January 03, 2025 1040 hours INDICATIONS: Abdominal pain and distention this week, dilated small bowel loops on abdomen films TECHNIQUE AND FINDINGS: Patient received 120 cc Gastrografin AP supine abdomen immediate, 30 minute, 1 hour films obtained Air distended small bowel loops Contrast in the stomach IMPRESSION: Small bowel obstruction pattern Recommend follow-up abdomen films 2:00 PM, 4:00 PM, 6:00 PM
[2025-01-03] MEDS: METOCLOPRAMIDE INJ 5 MG/ML VIAL 2 ML 10 MG IVP ×2 (10:20→17:50)
[2025-01-03 10:33] LABS: Campylobacter PCR Negative (Negative); Salmonella Species PCR Negative (Negative); Shiga Toxin PCR Negative (Negative); Shigella Species PCR Negative (Negative)
--- NOTE | 2025-01-03 10:35 | PD.SURPROG ---
Documentation for date of: 01/03/25 Subjective Subjective Narrative: Patient is seen and examined. He states that he feels better than yesterday and had multiple bowel movements Exam Vital Signs Temp Pulse Resp BP Pulse Ox O2 Del Method O2 Flow Rate 97.1 F 97 16 147/98 H 98 Room Air 2 01/03/25 08:00 01/03/25 09:45 01/03/25 08:00 01/03/25 08:00 01/03/25 08:00 01/03/25 08:00 01/01/25 12:00 Constitutional Constitutional: no acute distress Routine Abdominal Exam Comments: Abdomen is soft, but still distended. He has tenderness to deep palpation throughout the abdomen, no rebound tenderness or peritonitis at this time Assessment & Plan Assessment Additional comments: Patient had multiple bowel movement, however x-ray revealed persistent significant dilation of small bowel Plan Repeat small bowel series. If patient has persistent small bowel obstruction, will plan for exploratory laparotomy tomorrow, otherwise we will continue conservative management
--- NOTE | 2025-01-03 12:41 | PC.SS ---
Rounding: Pending colonoscopy, DC plan back to [facility]
--- NOTE | 2025-01-03 14:00 | XR_ITS ---
Examination: Abdomen AP single view Technique: AP portable supine abdomen, single view Exam date and time: January 03, 2025, 1423 hours, comparison small bowel series this morning INDICATIONS: Abdominal pain and distention this week, 3 hour delayed film post small bowel series today. FINDINGS: Contrast in distended small bowel loops IMPRESSION: Small bowel obstruction pattern Recommend follow-up films 4:00 PM 6:00 PM 8:00 PM
--- NOTE | 2025-01-03 14:17 | ESPR_ITS ---
<Statement entered by Barrera Downing MD - 01/06/25 16:19> Noted to have 8 bowel movements since this morning. Dr Degroot recommended to repeat the small bowel series and it was started. Patient is still on n.p.o. and we are continuing PPN for now. Will plan further based on the small bowel series. I have personally seen and examined the patient, agree with residents assessment and plan Patient plan of care was discussed with the attending physician, Dr. Jerome Downing, PGY2 Documentation for date of: 01/03/25 Subjective Subjective Interval history: No acute events overnight. Recorded 8 bowel movements this morning, patient reports soft stools. Repeat small bowel series today per surgery Dr Degroot, if continues to have SBO will plan for exploratory laparotomy tomorrow, otherwise will continue conservative management. Holding PPN due to persistent hyperglycemia, will increase insulin degludec to 36 units nightly. Continue to monitor glucose tomorrow. Continue n.p.o., consider restarting clear liquid diet if SBO resolved. Will wean PPN accordingly if this is the case. Follow up stool studies. Exam Vital Signs Temp Pulse Resp BP Pulse Ox O2 Del Method O2 Flow Rate 98.3 F 98 16 140/90 H 96 Room Air 2 01/03/25 12:00 01/03/25 13:29 01/03/25 12:00 01/03/25 12:00 01/03/25 12:00 01/03/25 12:00 01/01/25 12:00 Narrative Exam Physical Exam General: Awake and in no acute distress. Conversational and non-toxic appearing. NG tube in place. Lying comfortably in bed. Bout of hiccups this morning. HEENT: Normocephalic, atraumatic, mucous membranes moist. Heart: Regular rate and rhythm, normal S1 and S2, no murmurs. Lungs: Clear to auscultation with no wheezing or crackles. Abdomen: Soft, mildly distended, moderate tenderness throughout the abdomen, decreased bowel sounds. Neurologic: Alert and oriented x3, weakness in left half of the body (chronic). Extremities: No edema. Scabbed scratch estes on left lower extremity. Skin: No rash or ecchymoses. Objective Labs 01/03/25 04:50 01/03/25 04:50 Labs: Laboratory Results - last 24 hr 01/02/25 01/02/25 01/03/25 16:59 17:35 04:50 WBC 13.0 H RBC 4.89 Hgb 12.6 L Hct 38.3 L MCV 78 L MCH 25.8 MCHC 32.9 RDW Std Deviation 39.5 Plt Count 241 Neut % (Auto) 78 Lymph % (Auto) 12 Mercer % (Auto) 7 Eos % (Auto) 0 Baso % (Auto) 0 Neut # (Auto) 10.1 H Lymph # (Auto) 1.6 Mercer # (Auto) 1.0 H Eos # (Auto) 0.1 Baso # (Auto) 0.0 Immature Gran # (Auto) 0.29 H Absolute Nucleated RBC 0.00 Immature Gran % 2 H Nucleated RBC % 0 Sodium 130 L Potassium 4.3 Chloride 96 L Carbon Dioxide 21.7 Anion Gap 12 BUN 10 Creatinine 0.5 L Estim Creat Clear Calc 156.9 eGFR > 60 BUN/Creatinine Ratio 20 Glucose 283 H Calculated Osmolality 269 L Calcium 8.6 Corrected Calcium 9.0 Phosphorus 3.7 Magnesium 2.1 Total Bilirubin 0.5 AST 23 ALT 24 Alkaline Phosphatase 165 H D Total Protein 6.3 Albumin 3.5 Globulin 2.8 Albumin/Globulin Ratio 1.3 Stool for White Cells 3+ A Stool Campylobacter PCR Negative Stl E.coli Shiga Tox PCR Negative Stool Salmonella PCR Negative Stool Shigella PCR Negative Stool Norovirus Ag Cancelled Quality Measures Quality Measures none Assessment & Plan Assessment Current Active Medications: Generic Name Dose Route Start Last Admin Trade Name Freq PRN Reason Stop Dose Admin Acetaminophen 650 mg 12/31/24 17:05 Acetaminophen Supp 650 Mg Supp NC 01/27/25 10:14 Q6HR PRN Fever > 101 or pain 1-3 Dextrose 25 ml 12/26/24 15:36 Dextrose 50%-Water Inj 50 Ml Syringe IV 01/25/25 15:35 Q15MIN PRN BG 50-70 responsive npo pt Dextrose 50 ml 12/26/24 15:36 Dextrose 50%-Water Inj 50 Ml Syringe IV 01/25/25 15:35 Q15MIN PRN BG <50 OR BG <70 & pt unresponsive Glucagon 1 mg 12/26/24 15:36 Glucagon Inj 1 Mg Vial IM Q15MIN PRN BG <70, and no IV access Heparin Sodium (Porcine) 5,000 unit 12/26/24 15:30 01/03/25 05:24 Heparin Sod Inj 5000 Unit/Ml Vial SC 01/09/25 15:29 5,000 unit Q8HR GIOVANNI Administration Hydromorphone HCl 1 mg 12/31/24 17:05 01/01/25 21:48 Hydromorphone Inj 2 Mg/Ml Vial IVP 01/05/25 17:03 1 mg Q6HR PRN Administration Pain 4-10 Insulin Degludec 36 unit 01/03/25 21:00 Insulin Degludec 5 Unit/0.05 Ml (Per 5 Units) SC 02/02/25 20:59 HS GIOVANNI Insulin Human Lispro 0 unit 12/26/24 18:00 01/03/25 12:36 Insulin Lispro (Admelog) 1 Unit/0.01 Ml Unit SC 01/25/25 17:59 5 unit Q6HR GIOVANNI Administration Protocol Labetalol HCl 10 mg 12/29/24 07:57 Labetalol Inj 5 Mg/Ml Vial 20 Ml IVP 01/28/25 07:56 Q12HR PRN hypertension Levetiracetam 500 mg 12/29/24 21:00 01/03/25 08:08 Levetiracetam Inj 100 Mg/Ml Vial 5ml IVP 01/28/25 20:59 500 mg Q12HR GIOVANNI Administration Metoclopramide HCl 10 mg 12/31/24 15:20 01/01/25 21:05 Metoclopramide Inj 5 Mg/Ml Vial 2 Ml IVP 01/30/25 15:29 10 mg On Hold: 01/03/25 10:04 TID PRN Administration Comment: REGLAN ACTIVE hiccups Protocol Metoclopramide HCl 10 mg 01/03/25 10:05 01/03/25 12:32 Metoclopramide Inj 5 Mg/Ml Vial 2 Ml IVP 02/02/25 10:04 Not Given Q6HR GIOVANNI Protocol Ondansetron HCl 4 mg 12/26/24 15:34 12/29/24 09:23 Ondansetron Inj 2 Mg/Ml Inj 2 Ml IVP 01/25/25 15:33 4 mg Q6HR PRN Administration NAUSEA OR VOMITING Protocol Pantoprazole Sodium 40 mg 12/26/24 15:45 01/03/25 08:08 Pantoprazole Inj 40 Mg Vial IVP 01/25/25 15:44 40 mg QDAY GIOVANNI Administration Plan Patient is a 54 year old male with PMH of 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 #SBO #Hx chronic constipation #c/f SBO given history History of SBO, no surgeries or decompression done. Last bowel movement 4 days ago, reports only has bowel movements once a week. Able to pass gas. Had 1 episode of nonbilious nonblood emesis in ED. Last meal was breakfast day of admission. Endorsed lower abdominal pain, however has generalized tenderness. As above, CT A/P did not note obstruction, only terminal ilietis. Has extensive prn bowel regimen at rehab center (has been there since 06/2023 for residual left sided weakness from CVA). Consulted surgeon Dr. Degroot, not concerned for SBO, no need for surgical intervention at this time. Recommended consulting GI. Repeat gastrografin 12/30-12/31 shows contrast in colon, obstruction improving. Bowel movement s/p lactulose 30 mg x1 via NG tube. Plan: - Consulted surgery Dr. Degroot for SBO: Ordered small bowel prep, if continues to have SBO will plan for exploratory laparotomy tomorrow, otherwise we will continue conservative management - Consulted GI Dr. Oliveira, appreciate recommendations: Pending resolution of SBO, consider colonoscopy to diagnose possible IBD with complete resolution - Pain regimen: Tylenol and IV dilaudid 1mg q6hr prn - NPO - Hold PPN today due to hyperglycemia - Anticipate starting on clear liquid diet if patient continues to have bowel movements, will wean PPN appropriately - Monitor BMP for refeeding syndrome, replete electrolytes as needed - Consulted dietitian, appreciate recommendations - IV protonix 40 mg - IV Zofran 4mg prn #Sepsis 2/2 #Terminal ileitis, infectious versus inflammatory #Leukocytosis, reactive versus infectious cause #HAGMA, resolved #Lactic acidosis, resolved On admission, meets 3/4 SIRS criteria: tachycardic HR 137, temp increased to 104F, WBC 18,000. Anion gap 18 and bicarb 19.8. Procalc elevated at 3.1. Admission lactic acid elevated 6.0 -> 5.5 with fluid bolus. Beta hydroxybutyrate mildly increased at 0.7 and glucose 366, low concern for DKA/HHS. Patient denies history of inflammatory bowel or autoimmune diseases, however patient is a poor historian. Patient denies blood in stool or diarrhea as of late. Denies recent sick contacts or usual food exposure. CT A/P 12/26 shows severe terminal ilietis and cystitis, no bowel obstruction observed. BCX 12/26 negative. WBC 18.0 (admission) -> 18.6. CRP elevated at 31.6. Resolution of lactic acidosis and HAGMA w IV fluids. ANCA, anti-proteinase 3, anti myeloperoxidase all negative. S/p IV Zosyn for SBP prophylaxis (12/26-12/31), followed by IV CFX 1g and IV metronidazole 500 mg BID (12/31-01/02) Plan: - Follow up stool culture, stool WBCs, Giardia, Norovirus - Pending stool calprotectin - NPO for bowel rest #Pyuria #Hematuria #Cystitis UA 12/26 showed WBC 27, RBC 27; negative leukocyte esterase, nitrites, and bacteria. Budding yeast present. Previously grew Morganella morganii on urine culture 12/21/17. CT A/P 12/26/24 shows bladder wall thickening, with concern for cystitis. UCx positive for yeast. 04/27 BCx grew Staph epidermis, likely contaminant. Not complaining of urinary symptoms. Repeat BCx negative. Plan: - CTM urinary symptoms #Insulin dependent DM Takes insuline glargine 33 units and Novolog at rehab center. Last meal breakfast, currently NPO. UA 12/26 glucose 4+ with budding yeast, likely uncontrolled. SGLT-2 not on home medication list. Plan: - Increase insulin degludec to 36 HS as patient is now receiving PPN - SSI step 3 - CTM glucose and insulin requirements tomorrow, will adjust accordingly #Hypertension Taking amlodipine 10 mg daily, clonidine 0.3 mg TID, and losartan 50 mg daily. BP 158/101 on admission, improved now to 122/64 after pain control. Plan: - Hold home meds as patient is n.p.o. - IV labetalol 10 mg as needed if SBP greater than 180 - CTM BP #Stroke prophylaxis Home med Keppra 1000mg BID. Patient has no history of seizures. Likely was started prophylactically after his stroke. Plan: - Keppra 500 mg twice daily injections Health Maintenance Disposition: management of sepsis secondary to GI infection, HAGMA, lactic acidosis DVT prophylaxis: Heparin SQ GI prophylaxis: IV protonix 40 mg daily Bowel regimen: Hold for now, TBD Diet: NPO, PPN CODE STATUS: FULL Patient plan of care was discussed with the resident, Dr. Downing, and attending physician, Dr. Harding. Patience Mckinnon, PGY-1 Attending Provider Attestation/Addendum I attest that I was physically present for the evaluation, physical examination, lab and imaging review of the patient with the residents. I discussed the case with the residents and agree with the findings and plans of care as documented above. Filiberto Cano MD
--- NOTE | 2025-01-03 16:00 | XR_ITS ---
Examination: Abdomen AP single view Technique: AP portable supine abdomen, single view Exam date and time: January 03, 2025, 1618 hrs. Indications: Abdominal distention this week, 5 hour delayed film post small bowel series Findings: Contrast remains in the stomach Air distended small bowel loops Impression: Contrast remains in the stomach. Recommend follow-up films 6:00 PM, 8:00 PM, 10:00 PM.
--- NOTE | 2025-01-03 18:00 | XR_ITS ---
Examination: Abdomen AP single view Technique: AP portable supine abdomen, single view Exam date and time: January 03, 2025, 1801 hrs. Indications: Abdominal distention this week, 7 hour delayed film post small bowel series Findings: Contrast now present in distended small bowel loops Impression: Small bowel obstruction pattern, multiple additional delayed films will be obtained.
--- NOTE | 2025-01-03 20:00 | XR_ITS ---
Examination: Abdomen AP single view Technique: AP portable supine abdomen, single view Exam date and time: January 03, 2025 1956 hrs. Indications: Abdominal distention this week, nine-hour delayed film post small bowel series Findings: Contrast in distended small bowel loops however abundant contrast in the colon Impression: Negative for complete small bowel obstruction, no further films are needed
[2025-01-03] MEDS: INSULIN DEGLUDEC 5 UNIT/0.05 ML (PER 5 UNITS) 36 UNIT SC (21:07)
--- NOTE | 2025-01-03 22:03 | PD.IMPROG ---
Documentation for date of: 01/03/25 Subjective Subjective Interval history: Small bowel follow-through and KUB shows dilatation of the small bowel loops but a lot of contrast in the right colon which is also dilated but no clear obstruction Exam Vital Signs Temp Pulse Resp BP Pulse Ox O2 Del Method O2 Flow Rate 98.0 F 112 H 17 145/95 H 96 Room Air 2 01/03/25 20:00 01/03/25 20:00 01/03/25 20:00 01/03/25 20:00 01/03/25 20:00 01/03/25 16:00 01/01/25 12:00 Objective Labs 01/03/25 04:50 01/03/25 04:50 Labs: Laboratory Results - last 24 hr 01/02/25 01/02/25 01/03/25 16:59 17:35 04:50 WBC 13.0 H RBC 4.89 Hgb 12.6 L Hct 38.3 L MCV 78 L MCH 25.8 MCHC 32.9 RDW Std Deviation 39.5 Plt Count 241 Neut % (Auto) 78 Lymph % (Auto) 12 Hendricks % (Auto) 7 Eos % (Auto) 0 Baso % (Auto) 0 Neut # (Auto) 10.1 H Lymph # (Auto) 1.6 Hendricks # (Auto) 1.0 H Eos # (Auto) 0.1 Baso # (Auto) 0.0 Immature Gran # (Auto) 0.29 H Absolute Nucleated RBC 0.00 Immature Gran % 2 H Nucleated RBC % 0 Sodium 130 L Potassium 4.3 Chloride 96 L Carbon Dioxide 21.7 Anion Gap 12 BUN 10 Creatinine 0.5 L Estim Creat Clear Calc 156.9 eGFR > 60 BUN/Creatinine Ratio 20 Glucose 283 H Calculated Osmolality 269 L Calcium 8.6 Corrected Calcium 9.0 Phosphorus 3.7 Magnesium 2.1 Total Bilirubin 0.5 AST 23 ALT 24 Alkaline Phosphatase 165 H D Total Protein 6.3 Albumin 3.5 Globulin 2.8 Albumin/Globulin Ratio 1.3 Stool Campylobacter PCR Negative Stl E.coli Shiga Tox PCR Negative Stool Salmonella PCR Negative Stool Shigella PCR Negative Stool Norovirus Ag Cancelled Impressions Impression: ileus gastrointestinal motility disorder shock add Reglan 5 mg IV push Q6 Assessment & Plan A&P Narrative # Abnormal CT scan of the abdomen pelvis showing inflammation seen this terminal ileum with increased stool burden Differential diagnosis in the setting of regional ileitis is inflammatory versus infectious Because of the large stool burden: Needs to be flushed out Plan KUB GoLytely flush If patient starts vomiting with the GoLytely insert NGT to intermittent Gomco suction Will follow the patient ANCA antibody CRP Other medical problems include Hemorrhagic CVA with left-sided motor weakness Seizure disorder Essential hypertension Diabetes mellitus type 2 Thank you very much for the opportunity to participate in the care of this patient Time Spent With Patient Time: Total time spent is greater than 50% in coordination of care (as documented) at patient's floor/unit and/or counseling patient:
[2025-01-04] VITALS (9 sets, daily range): BP systolic 126–166; BP diastolic 85–96; PULSE 94–124; RESP 13–21; TEMP 36.2–36.7; O2SAT 96–99; BMI 28.1
[2025-01-04] MEDS: METOCLOPRAMIDE INJ 5 MG/ML VIAL 2 ML 10 MG IVP ×4 (00:08→17:53)
[2025-01-04] MEDS: INSULIN LISPRO (AdmeLOG) 1 UNIT/0.01 ML UNIT SC ×4 (00:09→17:32)
[2025-01-04 05:57] LABS: Basophils # (Auto) 0.0 Thou/mm3 (0.0-0.2); Basophils % (Auto) 0 % (0-2.5); Eosinophils # (Auto) 0.0 Thou/mm3 (0.0-0.5); Eosinophils % (Auto) 0 % (0-10); Hematocrit 38.0 % (41.0-53.0); Hemoglobin 12.7 g/dL (13.5-16.0); Immature Granulocytes Auto 0.22 Thou/mm3 (0.00-0.00); Lymphocytes # (Auto) 1.4 Thou/mm3 (1.0-4.8); Lymphocytes % (Auto) 12 % (10-50); Mean Corpuscular HGB Conc 33.4 g/dl (31.0-37.0); Mean Corpuscular Hemoglobin 26.2 pg (25.0-35.0); Mean Corpuscular Volume 78 fL (80-100); Monocytes # (Auto) 1.0 Thou/mm3 (0.0-0.8); Monocytes % (Auto) 9 % (0-12); Neutrophils # (Auto) 8.5 Thou/mm3 (1.8-7.7); Neutrophils % (Auto) 77 % (37-80); Nucleated Red Blood Cell # 0.00 Thou/mm3 (0.00-0.00); Nucleated Red Blood Cell % 0 /100 WBC (0); Platelet Count 259 Thou/mm3 (140-440); RDW Standard Deviation 39.0 fL (35.1-43.9); Red Blood Count 4.85 Miln/mm3 (4.50-5.90); White Blood Count 11.0 Thou/mm3 (3.8-10.6)
[2025-01-04] MEDS: HEPARIN SOD INJ 5000 UNIT/ML VIAL SC ×3 (06:16→21:01)
[2025-01-04 06:35] LABS: Alanine Aminotransferase 30 U/L (10-49); Albumin, Serum 3.8 gm/dL (3.5-5.0); Albumin/Globulin Ratio 1.3 (1.2-2.2); Alkaline Phosphatase 186 U/L (46-116); Anion Gap 12 (7-16); Aspartate Amino Transferase 23 U/L (0-34); BUN/Creatinine Ratio 22 Ratio (12-20); Bilirubin,Total 0.5 mg/dL (0.3-1.2); Blood Urea Nitrogen 11 mg/dL (9-23); Calcium 8.7 mg/dL (8.3-10.6); Calcium (Corrected) 8.9 mg/dL (8.5-10.1); Carbon Dioxide 23.9 mMol/L (20.0-31.0); Chloride 97 mMol/L (98-107); Creatinine (Component) 0.5 mg/dL (0.6-1.3); Estimated Creatinine Clearance 156.3 mL/min (>60); Globulin 2.9 gm/dL (2.3-3.5); Glucose 204 mg/dL (74-106); Magnesium 2.0 mg/dL (1.6-2.6); Osmolality,Calculated 271 (275-295); Phosphorous 2.9 mg/dL (2.4-5.1); Potassium 3.8 mMol/L (3.4-5.1); Sodium 133 mMol/L (136-145); Total Protein 6.7 gm/dL (5.7-8.2); eGFR > 60 See Note
[2025-01-04] MEDS: levETIRAcetam INJ 100 MG/ML VIAL 5ML 500 MG IVP ×2 (08:39→20:21)
[2025-01-04] MEDS: NA SU/NAHCO3/KC/PEG (Golytely) 4,000 ML BTL 4000 ML PO (10:21)
--- NOTE | 2025-01-04 12:29 | PD.SURPROG ---
Documentation for date of: 01/04/25 Subjective Subjective Narrative: Patient is seen and examined. Feels much better. He has had multiple bowel movements Exam Vital Signs Temp Pulse Resp BP Pulse Ox O2 Del Method O2 Flow Rate 98.1 F 112 H 13 126/96 H 96 Room Air 2 01/04/25 08:00 01/04/25 10:14 01/04/25 08:00 01/04/25 08:00 01/04/25 08:00 01/04/25 08:00 01/01/25 12:00 Constitutional Constitutional: no acute distress Routine Abdominal Exam Comments: Abdomen much softer and less distended. Bowel sounds are active Assessment & Plan Assessment Additional comments: Small bowel obstruction resolving. Small bowel series did not show bowel obstruction Plan Remove NG tube and start patient on clear liquids
--- NOTE | 2025-01-04 15:05 | ESPR_ITS ---
Documentation for date of: 01/04/25 Subjective Subjective Interval history: Had multiple bowel movements overnight. Continues to have good bowel movements. Passing gas. Reports abdominal pain improved from yesterday. Started on GoLytely prep per Dr. Oliveira, plan for colonoscopy. NG tube removed, discontinue PPN, restarted on clear liquid diet per Dr Degroot. Anticipate discharge after colonoscopy. Exam Vital Signs Temp Pulse Resp BP Pulse Ox O2 Del Method O2 Flow Rate 97.9 F 109 H 19 149/92 H 99 Room Air 2 01/04/25 12:00 01/04/25 12:00 01/04/25 12:00 01/04/25 12:00 01/04/25 12:00 01/04/25 12:00 01/01/25 12:00 Narrative Exam Physical Exam General: Awake and in no acute distress. Conversational and non-toxic appearing. Lying comfortably in bed. HEENT: Normocephalic, atraumatic, mucous membranes moist. Heart: Regular rate and rhythm, normal S1 and S2, no murmurs. Lungs: Clear to auscultation with no wheezing or crackles. Abdomen: Soft, mildly distended, tenderness of right abdomen, positive bowel sounds. Neurologic: Alert and oriented x3, weakness in left half of the body (chronic). Extremities: No edema. Scabbed scratch estes on left lower extremity. Skin: No rash or ecchymoses. Objective Labs 01/05/25 05:10 01/05/25 05:10 Labs: Laboratory Results - last 24 hr 01/04/25 05:00 WBC 11.0 H RBC 4.85 Hgb 12.7 L Hct 38.0 L MCV 78 L MCH 26.2 MCHC 33.4 RDW Std Deviation 39.0 Plt Count 259 Neut % (Auto) 77 Lymph % (Auto) 12 [place] % (Auto) 9 Eos % (Auto) 0 Baso % (Auto) 0 Neut # (Auto) 8.5 H Lymph # (Auto) 1.4 [place] # (Auto) 1.0 H Eos # (Auto) 0.0 Baso # (Auto) 0.0 Immature Gran # (Auto) 0.22 H Absolute Nucleated RBC 0.00 Immature Gran % 2 H Nucleated RBC % 0 Sodium 133 L Potassium 3.8 D Chloride 97 L Carbon Dioxide 23.9 Anion Gap 12 BUN 11 Creatinine 0.5 L Estim Creat Clear Calc 156.3 eGFR > 60 BUN/Creatinine Ratio 22 H Glucose 204 H D Calculated Osmolality 271 L Calcium 8.7 Corrected Calcium 8.9 Phosphorus 2.9 Magnesium 2.0 Total Bilirubin 0.5 AST 23 ALT 30 Alkaline Phosphatase 186 H D Total Protein 6.7 Albumin 3.8 Globulin 2.9 Albumin/Globulin Ratio 1.3 Quality Measures Quality Measures none Assessment & Plan Assessment Current Active Medications: Generic Name Dose Route Start Last Admin Trade Name Alysha PRN Reason Stop Dose Admin Acetaminophen 650 mg 12/31/24 17:05 Acetaminophen Supp 650 Mg Supp OR 01/27/25 10:14 Q6HR PRN Fever > 101 or pain 1-3 Dextrose 25 ml 12/26/24 15:36 Dextrose 50%-Water Inj 50 Ml Syringe IV 01/25/25 15:35 Q15MIN PRN BG 50-70 responsive npo pt Dextrose 50 ml 12/26/24 15:36 Dextrose 50%-Water Inj 50 Ml Syringe IV 01/25/25 15:35 Q15MIN PRN BG <50 OR BG <70 & pt unresponsive Glucagon 1 mg 12/26/24 15:36 Glucagon Inj 1 Mg Vial IM Q15MIN PRN BG <70, and no IV access Heparin Sodium (Porcine) 5,000 unit 12/26/24 15:30 01/04/25 14:35 Heparin Sod Inj 5000 Unit/Ml Vial SC 01/09/25 15:29 5,000 unit Q8HR GIOVANNI Administration Hydromorphone HCl 1 mg 12/31/24 17:05 01/01/25 21:48 Hydromorphone Inj 2 Mg/Ml Vial IVP 01/08/25 17:04 1 mg Q6HR PRN Administration Pain 4-10 Insulin Degludec 36 unit 01/03/25 21:00 01/03/25 21:07 Insulin Degludec 5 Unit/0.05 Ml (Per 5 Units) SC 02/02/25 20:59 36 unit HS GIOVANNI Administration Insulin Human Lispro 0 unit 12/26/24 18:00 01/04/25 12:20 Insulin Lispro (Admelog) 1 Unit/0.01 Ml Unit SC 01/25/25 17:59 3 unit Q6HR GIOVANNI Administration Protocol Labetalol HCl 10 mg 12/29/24 07:57 Labetalol Inj 5 Mg/Ml Vial 20 Ml IVP 01/28/25 07:56 Q12HR PRN hypertension Levetiracetam 500 mg 12/29/24 21:00 01/04/25 08:39 Levetiracetam Inj 100 Mg/Ml Vial 5ml IVP 01/28/25 20:59 500 mg Q12HR GIOVANNI Administration Metoclopramide HCl 10 mg 12/31/24 15:20 01/01/25 21:05 Metoclopramide Inj 5 Mg/Ml Vial 2 Ml IVP 01/30/25 15:29 10 mg On Hold: 01/03/25 10:04 TID PRN Administration Comment: REGLAN ACTIVE hiccups Protocol Metoclopramide HCl 10 mg 01/03/25 10:05 01/04/25 12:21 Metoclopramide Inj 5 Mg/Ml Vial 2 Ml IVP 02/02/25 10:04 10 mg Q6HR GIOVANNI Administration Protocol Ondansetron HCl 4 mg 12/26/24 15:34 12/29/24 09:23 Ondansetron Inj 2 Mg/Ml Inj 2 Ml IVP 01/25/25 15:33 4 mg Q6HR PRN Administration NAUSEA OR VOMITING Protocol Pantoprazole Sodium 40 mg 12/26/24 15:45 01/04/25 08:39 Pantoprazole Inj 40 Mg Vial IVP 01/25/25 15:44 40 mg QDAY GIOVANNI Administration Plan Patient is a 54 year old male with PMH of 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 #SBO, resolved #Hx chronic constipation #c/f SBO given history History of SBO, no surgeries or decompression done. Last bowel movement 4 days ago, reports only has bowel movements once a week. Able to pass gas. Had 1 episode of nonbilious nonblood emesis in ED. Last meal was breakfast day of admission. Endorsed lower abdominal pain, however has generalized tenderness. As above, CT A/P did not note obstruction, only terminal ilietis. Has extensive prn bowel regimen at rehab center (has been there since 06/2023 for residual left sided weakness from CVA). Consulted surgeon Dr. Degroot, not concerned for SBO, no need for surgical intervention at this time. Recommended consulting GI. Gastrografin 12/28 continued to show small bowel obstruction. XR abdomen 12/29 - 01/03 continue to show air-filled dilated small bowel. Gastrografin 01/03 showed contrast in colon, no obstruction results. Patient started passing bowel movements with IV Reglan 5 mg q6hr. Plan: - Consulted surgery Dr. Degroot, appreciate recommendations: Remove NG tube, advance to clear liquid diet - Consulted GI Dr. Oliveira, appreciate recommendations: Starting GoLytely, pending colonoscopy - Pain regimen: Tylenol and IV dilaudid 1mg q6hr prn - Discontinue PPN - Monitor BMP for refeeding syndrome, replete electrolytes as needed - IV protonix 40 mg - IV Zofran 4mg prn #Sepsis /2 #Terminal ileitis, infectious versus inflammatory #Leukocytosis, reactive versus infectious cause #HAGMA, resolved #Lactic acidosis, resolved On admission, meets 3/4 SIRS criteria: tachycardic HR 137, temp increased to 104F, WBC 18,000. Anion gap 18 and bicarb 19.8. Procalc elevated at 3.1. Admission lactic acid elevated 6.0 -> 5.5 with fluid bolus. Beta hydroxybutyrate mildly increased at 0.7 and glucose 366, low concern for DKA/HHS. Patient denies history of inflammatory bowel or autoimmune diseases, however patient is a poor historian. Patient denies blood in stool or diarrhea as of late. Denies recent sick contacts or usual food exposure. CT A/P 12/26 shows severe terminal ilietis and cystitis, no bowel obstruction observed. BCX 12/26 negative. WBC 18.0 (admission) -> 18.6. CRP elevated at 31.6. Resolution of lactic acidosis and HAGMA w IV fluids. ANCA, anti-proteinase 3, anti myeloperoxidase all negative. Stool white cells 3+. Campylobacter, E. coli Shiga toxin, Salmonella, Shigella all negative. S/p IV Zosyn for SBP prophylaxis (12/26-12/31), followed by IV CFX 1g and IV metronidazole 500 mg BID (12/31-01/02) Plan: - Follow up stool culture, Giardia, Norovirus - Pending stool calprotectin - Colonoscopy as above #Pyuria #Hematuria #Cystitis UA 12/26 showed WBC 27, RBC 27; negative leukocyte esterase, nitrites, and bacteria. Budding yeast present. Previously grew Morganella morganii on urine culture 12/21/17. CT A/P 12/26/24 shows bladder wall thickening, with concern for cystitis. UCx positive for yeast. 04/27 BCx grew Staph epidermis, likely contaminant. Not complaining of urinary symptoms. Repeat BCx negative. Plan: - CTM urinary symptoms #Insulin dependent DM Takes insuline glargine 33 units and Novolog at rehab center. Last meal breakfast, currently NPO. UA 12/26 glucose 4+ with budding yeast, likely uncontrolled. SGLT-2 not on home medication list. Plan: - Insulin degludec to 36 HS - SSI step 3 - CTM glucose and insulin requirements tomorrow, will adjust accordingly #Hypertension Taking amlodipine 10 mg daily, clonidine 0.3 mg TID, and losartan 50 mg daily. BP 158/101 on admission, improved now to 122/64 after pain control. Plan: - Hold home meds as patient is n.p.o. - IV labetalol 10 mg as needed if SBP greater than 180 - CTM BP #Stroke prophylaxis Home med Keppra 1000mg BID. Patient has no history of seizures. Likely was started prophylactically after his stroke. Plan: - Keppra 500 mg twice daily injections Health Maintenance Disposition: Medsurg DVT prophylaxis: Heparin SQ GI prophylaxis: IV protonix 40 mg daily Bowel regimen: GoLytely Diet: Clear liquid diet, possible n.p.o. after midnight CODE STATUS: FULL Patient plan of care was discussed with the attending physician, Dr. Cano. Patience Mckinnon, PGY-1 Attending Provider Attestation/Addendum I attest that I was physically present for the evaluation, physical examination, lab and imaging review of the patient with the residents. I discussed the case with the residents and agree with the findings and plans of care as documented above. At bedside today, patient appears comfortable. Continues to complain of mild abdominal pain but improving significantly compared to yesterday. NG tube has been discontinued along with PPN and patient has been started on clear liquid diet. Discussed with GI, will start patient on GoLytely preparation, possible colonoscopy, appreciate recommendations. Filiberto Cano MD
--- NOTE | 2025-01-04 19:50 | PC.NURSE ---
PATIENT HAS HX OF SEIZURES, PT CAN'T REMEMBER LAST SZ, INITIATED SZ PRECAUTIONS.
[2025-01-04] MEDS: INSULIN DEGLUDEC 5 UNIT/0.05 ML (PER 5 UNITS) 36 UNIT SC (20:20)
--- NOTE | 2025-01-04 21:43 | PD.IMPROG ---
Documentation for date of: 01/04/25 Subjective Subjective Interval history: Clinically improving multiple bowel movements Exam Vital Signs Temp Pulse Resp BP Pulse Ox O2 Del Method O2 Flow Rate 97.2 F 110 H 19 166/93 H 96 Room Air 2 01/04/25 20:00 01/04/25 20:50 01/04/25 20:00 01/04/25 20:00 01/04/25 20:00 01/04/25 16:00 01/01/25 12:00 Objective Labs 01/04/25 05:00 01/04/25 05:00 Labs: Laboratory Results - last 24 hr 01/04/25 05:00 WBC 11.0 H RBC 4.85 Hgb 12.7 L Hct 38.0 L MCV 78 L MCH 26.2 MCHC 33.4 RDW Std Deviation 39.0 Plt Count 259 Neut % (Auto) 77 Lymph % (Auto) 12 [place] % (Auto) 9 Eos % (Auto) 0 Baso % (Auto) 0 Neut # (Auto) 8.5 H Lymph # (Auto) 1.4 [place] # (Auto) 1.0 H Eos # (Auto) 0.0 Baso # (Auto) 0.0 Immature Gran # (Auto) 0.22 H Absolute Nucleated RBC 0.00 Immature Gran % 2 H Nucleated RBC % 0 Sodium 133 L Potassium 3.8 D Chloride 97 L Carbon Dioxide 23.9 Anion Gap 12 BUN 11 Creatinine 0.5 L Estim Creat Clear Calc 156.3 eGFR > 60 BUN/Creatinine Ratio 22 H Glucose 204 H D Calculated Osmolality 271 L Calcium 8.7 Corrected Calcium 8.9 Phosphorus 2.9 Magnesium 2.0 Total Bilirubin 0.5 AST 23 ALT 30 Alkaline Phosphatase 186 H D Total Protein 6.7 Albumin 3.8 Globulin 2.9 Albumin/Globulin Ratio 1.3 Impressions Impression: Small bowel obstruction resolving Patient clinically improving SBFT negative for small bowel obstruction at the moment Advance diet as tolerated Assessment & Plan A&P Narrative # Abnormal CT scan of the abdomen pelvis showing inflammation seen this terminal ileum with increased stool burden Differential diagnosis in the setting of regional ileitis is inflammatory versus infectious Because of the large stool burden: Needs to be flushed out Plan KUB GoLytely flush If patient starts vomiting with the GoLytely insert NGT to intermittent Gomco suction Will follow the patient ANCA antibody CRP Other medical problems include Hemorrhagic CVA with left-sided motor weakness Seizure disorder Essential hypertension Diabetes mellitus type 2 Thank you very much for the opportunity to participate in the care of this patient Time Spent With Patient Time: Total time spent is greater than 50% in coordination of care (as documented) at patient's floor/unit and/or counseling patient:
[2025-01-05] VITALS (11 sets, daily range): BP systolic 140–153; BP diastolic 86–96; PULSE 95–115; RESP 17–22; TEMP 36.2–36.7; O2SAT 93–96; BMI 29.2
[2025-01-05] MEDS: METOCLOPRAMIDE INJ 5 MG/ML VIAL 2 ML 10 MG IVP ×5 (00:28→23:37)
[2025-01-05] MEDS: HEPARIN SOD INJ 5000 UNIT/ML VIAL SC ×3 (05:28→21:14)
[2025-01-05 06:24] LABS: Basophils # (Auto) 0.0 Thou/mm3 (0.0-0.2); Basophils % (Auto) 0 % (0-2.5); Eosinophils # (Auto) 0.1 Thou/mm3 (0.0-0.5); Eosinophils % (Auto) 1 % (0-10); Hematocrit 37.6 % (41.0-53.0); Hemoglobin 12.7 g/dL (13.5-16.0); Immature Granulocytes Auto 0.15 Thou/mm3 (0.00-0.00); Lymphocytes # (Auto) 1.4 Thou/mm3 (1.0-4.8); Lymphocytes % (Auto) 13 % (10-50); Mean Corpuscular HGB Conc 33.8 g/dl (31.0-37.0); Mean Corpuscular Hemoglobin 26.2 pg (25.0-35.0); Mean Corpuscular Volume 78 fL (80-100); Monocytes # (Auto) 0.9 Thou/mm3 (0.0-0.8); Monocytes % (Auto) 8 % (0-12); Neutrophils # (Auto) 8.5 Thou/mm3 (1.8-7.7); Neutrophils % (Auto) 77 % (37-80); Nucleated Red Blood Cell # 0.00 Thou/mm3 (0.00-0.00); Nucleated Red Blood Cell % 0 /100 WBC (0); Platelet Count 240 Thou/mm3 (140-440); RDW Standard Deviation 39.2 fL (35.1-43.9); Red Blood Count 4.84 Miln/mm3 (4.50-5.90); White Blood Count 11.0 Thou/mm3 (3.8-10.6)
[2025-01-05 06:49] LABS: Alanine Aminotransferase 36 U/L (10-49); Albumin, Serum 3.5 gm/dL (3.5-5.0); Albumin/Globulin Ratio 1.2 (1.2-2.2); Alkaline Phosphatase 193 U/L (46-116); Anion Gap 11 (7-16); Aspartate Amino Transferase 31 U/L (0-34); BUN/Creatinine Ratio 14 Ratio (12-20); Bilirubin,Total 0.5 mg/dL (0.3-1.2); Blood Urea Nitrogen 7 mg/dL (9-23); Calcium 8.1 mg/dL (8.3-10.6); Calcium (Corrected) 8.5 mg/dL (8.5-10.1); Carbon Dioxide 24.6 mMol/L (20.0-31.0); Chloride 97 mMol/L (98-107); Creatinine (Component) 0.5 mg/dL (0.6-1.3); Estimated Creatinine Clearance 151.5 mL/min (>60); Globulin 3.0 gm/dL (2.3-3.5); Glucose 162 mg/dL (74-106); Magnesium 1.9 mg/dL (1.6-2.6); Osmolality,Calculated 268 (275-295); Phosphorous 2.7 mg/dL (2.4-5.1); Potassium 3.7 mMol/L (3.4-5.1); Sodium 133 mMol/L (136-145); Total Protein 6.5 gm/dL (5.7-8.2); eGFR > 60 See Note
[2025-01-05] MEDS: INSULIN LISPRO (AdmeLOG) 1 UNIT/0.01 ML UNIT SC ×4 (07:48→21:13)
[2025-01-05] MEDS: levETIRAcetam INJ 100 MG/ML VIAL 5ML 500 MG IVP ×2 (08:40→21:14)
--- NOTE | 2025-01-05 09:17 | PC.SS ---
Follow up note: Colonoscopy pending. Pt will return to [facility]. [facility] has insurance authorization.
[2025-01-05 11:36] LABS: Ferritin 222 ng/mL (10.5-307.3); Iron 32 mcg/dL (65-175); Percent Iron Saturation 11 % (20-55); Total Iron Binding Capacity 270 mcg/dL (250-425); Unsaturated Iron Binding 238 (225-295)
[2025-01-05] MEDS: IRON SUCROSE CPLX INJ 20 MG/ML VIAL 5 ML 100 MG IVP (17:01)
--- NOTE | 2025-01-05 18:24 | ESPR_ITS ---
Documentation for date of: 01/05/25 Subjective Subjective Interval history: No acute events overnight. Continues to pass bowel movements. Consulted GI Dr. Oliveira who will defer colonoscopy, no longer needing GoLytely prep. Plan to slowly advance diet as tolerated. Plan to discharge once able to tolerate regular diet. Repleted iron due to low iron. Will monitor for signs of SBO. Exam Vital Signs Temp Pulse Resp BP Pulse Ox O2 Del Method O2 Flow Rate 97.2 F 107 H 17 140/94 H 96 Room Air 2 01/05/25 15:40 01/05/25 16:00 01/05/25 15:40 01/05/25 15:40 01/05/25 15:40 01/05/25 15:40 01/01/25 12:00 Narrative Exam Physical Exam General: Awake and in no acute distress. Conversational and non-toxic appearing. Lying comfortably in bed. HEENT: Normocephalic, atraumatic, mucous membranes moist. Heart: Regular rate and rhythm, normal S1 and S2, no murmurs. Lungs: Clear to auscultation with no wheezing or crackles. Abdomen: Soft, mildly distended, tenderness of right abdomen, positive bowel sounds. Neurologic: Alert and oriented x3, weakness in left half of the body (chronic). Extremities: No edema. Scabbed scratch estes on left lower extremity. Skin: No rash or ecchymoses Objective Labs 01/06/25 12:18 01/06/25 05:10 Labs: Laboratory Results - last 24 hr 01/05/25 05:10 WBC 11.0 H RBC 4.84 Hgb 12.7 L Hct 37.6 L MCV 78 L MCH 26.2 MCHC 33.8 RDW Std Deviation 39.2 Plt Count 240 Neut % (Auto) 77 Lymph % (Auto) 13 [place] % (Auto) 8 Eos % (Auto) 1 Baso % (Auto) 0 Neut # (Auto) 8.5 H Lymph # (Auto) 1.4 [place] # (Auto) 0.9 H Eos # (Auto) 0.1 Baso # (Auto) 0.0 Immature Gran # (Auto) 0.15 H Absolute Nucleated RBC 0.00 Immature Gran % 1 H Nucleated RBC % 0 Sodium 133 L Potassium 3.7 Chloride 97 L Carbon Dioxide 24.6 Anion Gap 11 BUN 7 L Creatinine 0.5 L Estim Creat Clear Calc 151.5 eGFR > 60 BUN/Creatinine Ratio 14 Glucose 162 H Calculated Osmolality 268 L Calcium 8.1 L Corrected Calcium 8.5 Phosphorus 2.7 Magnesium 1.9 Iron 32 L TIBC 270 Iron Saturation 11 L Unsat Iron Binding 238 Ferritin 222 Total Bilirubin 0.5 AST 31 ALT 36 Alkaline Phosphatase 193 H Total Protein 6.5 Albumin 3.5 Globulin 3.0 Albumin/Globulin Ratio 1.2 Quality Measures Quality Measures none Assessment & Plan Assessment Current Active Medications: Generic Name Dose Route Start Last Admin Trade Name Freq PRN Reason Stop Dose Admin Acetaminophen 650 mg 12/31/24 17:05 Acetaminophen Supp 650 Mg Supp AL 01/27/25 10:14 Q6HR PRN Fever > 101 or pain 1-3 Dextrose 25 ml 12/26/24 15:36 Dextrose 50%-Water Inj 50 Ml Syringe IV 01/25/25 15:35 Q15MIN PRN BG 50-70 responsive npo pt Dextrose 50 ml 12/26/24 15:36 Dextrose 50%-Water Inj 50 Ml Syringe IV 01/25/25 15:35 Q15MIN PRN BG <50 OR BG <70 & pt unresponsive Glucagon 1 mg 12/26/24 15:36 Glucagon Inj 1 Mg Vial IM Q15MIN PRN BG <70, and no IV access Heparin Sodium (Porcine) 5,000 unit 12/26/24 15:30 01/05/25 14:10 Heparin Sod Inj 5000 Unit/Ml Vial SC 01/09/25 15:29 5,000 unit Q8HR GIOVANNI Administration Hydromorphone HCl 1 mg 12/31/24 17:05 01/01/25 21:48 Hydromorphone Inj 2 Mg/Ml Vial IVP 01/08/25 17:04 1 mg Q6HR PRN Administration Pain 4-10 Insulin Degludec 36 unit 01/03/25 21:00 01/04/25 20:20 Insulin Degludec 5 Unit/0.05 Ml (Per 5 Units) SC 02/02/25 20:59 36 unit HS GIOVANNI Administration Insulin Human Lispro 0 unit 01/05/25 07:30 01/05/25 16:25 Insulin Lispro (Admelog) 1 Unit/0.01 Ml Unit SC 02/04/25 07:29 2 unit ACHS GIOVANNI Administration Protocol Labetalol HCl 10 mg 12/29/24 07:57 Labetalol Inj 5 Mg/Ml Vial 20 Ml IVP 01/28/25 07:56 Q12HR PRN hypertension Levetiracetam 500 mg 12/29/24 21:00 01/05/25 08:40 Levetiracetam Inj 100 Mg/Ml Vial 5ml IVP 01/28/25 20:59 500 mg Q12HR GIOVANNI Administration Metoclopramide HCl 10 mg 01/03/25 10:05 01/05/25 17:00 Metoclopramide Inj 5 Mg/Ml Vial 2 Ml IVP 02/02/25 10:04 10 mg Q6HR GIOVANNI Administration Protocol Ondansetron HCl 4 mg 12/26/24 15:34 12/29/24 09:23 Ondansetron Inj 2 Mg/Ml Inj 2 Ml IVP 01/25/25 15:33 4 mg Q6HR PRN Administration NAUSEA OR VOMITING Protocol Pantoprazole Sodium 40 mg 12/26/24 15:45 01/05/25 08:45 Pantoprazole Inj 40 Mg Vial IVP 01/25/25 15:44 40 mg QDAY GIOVANNI Administration Plan Patient is a 54 year old male with PMH of 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 #SBO, resolved #Hx chronic constipation #c/f SBO given history History of SBO, no surgeries or decompression done. Last bowel movement 4 days ago, reports only has bowel movements once a week. Able to pass gas. Had 1 episode of nonbilious nonblood emesis in ED. Last meal was breakfast day of admission. Endorsed lower abdominal pain, however has generalized tenderness. As above, CT A/P did not note obstruction, only terminal ilietis. Has extensive prn bowel regimen at rehab center (has been there since 06/2023 for residual left sided weakness from CVA). Consulted surgeon Dr. Degroot, not concerned for SBO, no need for surgical intervention at this time. Recommended consulting GI. Gastrografin 12/28 continued to show small bowel obstruction. XR abdomen 12/29 - 01/03 continue to show air-filled dilated small bowel. Gastrografin 01/03 showed contrast in colon, no obstruction results. Patient started passing bowel movements with IV Reglan 5 mg q6hr. Plan: - Consulted surgery Dr. Degroot, appreciate recommendations: Advance diet as tolerated - Consulted GI Dr. Oliveira, appreciate recommendations: No need for colonoscopy inpatient - Pain regimen: Tylenol and IV dilaudid 1mg q6hr prn - Monitor BMP for refeeding syndrome, replete electrolytes as needed - IV protonix 40 mg - IV Zofran 4mg prn #Sepsis 2/2 #Terminal ileitis, infectious versus inflammatory #Leukocytosis, reactive versus infectious cause #HAGMA, resolved #Lactic acidosis, resolved On admission, meets 3/4 SIRS criteria: tachycardic HR 137, temp increased to 104F, WBC 18,000. Anion gap 18 and bicarb 19.8. Procalc elevated at 3.1. Admission lactic acid elevated 6.0 -> 5.5 with fluid bolus. Beta hydroxybutyrate mildly increased at 0.7 and glucose 366, low concern for DKA/HHS. Patient denies history of inflammatory bowel or autoimmune diseases, however patient is a poor historian. Patient denies blood in stool or diarrhea as of late. Denies recent sick contacts or usual food exposure. CT A/P 12/26 shows severe terminal ilietis and cystitis, no bowel obstruction observed. BCX 12/26 negative. WBC 18.0 (admission) -> 18.6. CRP elevated at 31.6. Resolution of lactic acidosis and HAGMA w IV fluids. ANCA, anti-proteinase 3, anti myeloperoxidase all negative. Stool white cells 3+. Campylobacter, E. coli Shiga toxin, Salmonella, Shigella all negative. S/p IV Zosyn for SBP prophylaxis (12/26-12/31), followed by IV CFX 1g and IV metronidazole 500 mg BID (12/31-01/02) Plan: - Follow up stool culture, Giardia, Norovirus - Pending stool calprotectin #Pyuria #Hematuria #Cystitis UA 12/26 showed WBC 27, RBC 27; negative leukocyte esterase, nitrites, and bacteria. Budding yeast present. Previously grew Morganella morganii on urine culture 12/21/17. CT A/P 12/26/24 shows bladder wall thickening, with concern for cystitis. UCx positive for yeast. 1/2 BCx grew Staph epidermis, likely contaminant. Not complaining of urinary symptoms. Repeat BCx negative. Plan: - CTM urinary symptoms #Insulin dependent DM Takes insuline glargine 33 units and Novolog at rehab center. Last meal breakfast, currently NPO. UA 9/2 glucose 4+ with budding yeast, likely uncontrolled. SGLT-2 not on home medication list. Plan: - Insulin degludec to 36 HS - SSI step 3 - CTM glucose and insulin requirements, will adjust accordingly #Hypertension Taking amlodipine 10 mg daily, clonidine 0.3 mg TID, and losartan 50 mg daily. BP 158/101 on admission, improved now to 122/64 after pain control. Plan: - Will resume home dose losartan and amlodipine tomorrow - IV labetalol 10 mg as needed if SBP greater than 180 - CTM BP #Stroke prophylaxis Home med Keppra 1000mg BID. Patient has no history of seizures. Likely was started prophylactically after his stroke. Plan: - Keppra 500 mg twice daily injections Health Maintenance Disposition: Medsurg DVT prophylaxis: Heparin SQ GI prophylaxis: IV protonix 40 mg daily Bowel regimen: GoLytely Diet: Clear liquid diet, possible n.p.o. after midnight CODE STATUS: FULL Patient plan of care was discussed with the attending physician, Dr. Cano. Patience Mckinnon, PGY-1 Attending Provider Attestation/Addendum I attest that I was physically present for the evaluation, physical examination, lab and imaging review of the patient with the residents. I discussed the case with the residents and agree with the findings and plans of care as documented above. At bedside today, patient appears comfortable and denies any new complaints.? He was started on GoLytely preparation yesterday for bowel flush.? Has been able to tolerate clear liquid diet well.? Continues to have mild tenderness around whole abdomen, distention has come down significantly compared to few days ago.? WBC count is stable.? Noted to have mild anemia with low MCV, we will obtain iron studies.? Blood pressure is slightly higher, we will continue to monitor closely.? If patient is able to tolerate his diet well, we will plan for discharge in next 24 to 48 hours. Filiberto Cano MD
--- NOTE | 2025-01-05 18:46 | ESPR_ITS ---
Documentation for date of: 01/05/25 Subjective Subjective Interval history: Case discussed with the internal medicine team no need for a colonoscopy abdomen remains decompressed And less distended and positive bowel sounds Exam Vital Signs Temp Pulse Resp BP Pulse Ox O2 Del Method O2 Flow Rate 97.2 F 107 H 17 140/94 H 96 Room Air 2 01/05/25 15:40 01/05/25 16:00 01/05/25 15:40 01/05/25 15:40 01/05/25 15:40 01/05/25 15:40 01/01/25 12:00 Objective Labs 01/05/25 05:10 01/05/25 05:10 Labs: Laboratory Results - last 24 hr 01/05/25 05:10 WBC 11.0 H RBC 4.84 Hgb 12.7 L Hct 37.6 L MCV 78 L MCH 26.2 MCHC 33.8 RDW Std Deviation 39.2 Plt Count 240 Neut % (Auto) 77 Lymph % (Auto) 13 [place] % (Auto) 8 Eos % (Auto) 1 Baso % (Auto) 0 Neut # (Auto) 8.5 H Lymph # (Auto) 1.4 [place] # (Auto) 0.9 H Eos # (Auto) 0.1 Baso # (Auto) 0.0 Immature Gran # (Auto) 0.15 H Absolute Nucleated RBC 0.00 Immature Gran % 1 H Nucleated RBC % 0 Sodium 133 L Potassium 3.7 Chloride 97 L Carbon Dioxide 24.6 Anion Gap 11 BUN 7 L Creatinine 0.5 L Estim Creat Clear Calc 151.5 eGFR > 60 BUN/Creatinine Ratio 14 Glucose 162 H Calculated Osmolality 268 L Calcium 8.1 L Corrected Calcium 8.5 Phosphorus 2.7 Magnesium 1.9 Iron 32 L TIBC 270 Iron Saturation 11 L Unsat Iron Binding 238 Ferritin 222 Total Bilirubin 0.5 AST 31 ALT 36 Alkaline Phosphatase 193 H Total Protein 6.5 Albumin 3.5 Globulin 3.0 Albumin/Globulin Ratio 1.2 Impressions Impression: Colonic ileus resolved No need for a colonoscopy at this point Advance diet as tolerated Assessment & Plan A&P Narrative # Abnormal CT scan of the abdomen pelvis showing inflammation seen this terminal ileum with increased stool burden Differential diagnosis in the setting of regional ileitis is inflammatory versus infectious Because of the large stool burden: Needs to be flushed out Plan KUB GoLytely flush If patient starts vomiting with the GoLytely insert NGT to intermittent Gomco suction Will follow the patient ANCA antibody CRP Other medical problems include Hemorrhagic CVA with left-sided motor weakness Seizure disorder Essential hypertension Diabetes mellitus type 2 Thank you very much for the opportunity to participate in the care of this patient Time Spent With Patient Time: Total time spent is greater than 50% in coordination of care (as documented) at patient's floor/unit and/or counseling patient:
[2025-01-05] MEDS: INSULIN DEGLUDEC 5 UNIT/0.05 ML (PER 5 UNITS) 36 UNIT SC (21:12)
[2025-01-05] MEDS: MELATONIN 3 MG TABLET PO (23:36)
[2025-01-06] VITALS (8 sets, daily range): BP systolic 128–154; BP diastolic 78–90; PULSE 82–120; RESP 18–19; TEMP 36.1–37.1; O2SAT 94–96; BMI 29.2
[2025-01-06] MEDS: HEPARIN SOD INJ 5000 UNIT/ML VIAL SC ×3 (05:19→21:33)
[2025-01-06] MEDS: METOCLOPRAMIDE INJ 5 MG/ML VIAL 2 ML 10 MG IVP ×3 (05:19→17:26)
[2025-01-06 06:04] LABS: Basophils # (Auto) 0.0 Thou/mm3 (0.0-0.2); Basophils % (Auto) 0 % (0-2.5); Eosinophils # (Auto) 0.0 Thou/mm3 (0.0-0.5); Eosinophils % (Auto) 0 % (0-10); Hematocrit 38.5 % (41.0-53.0); Hemoglobin 12.6 g/dL (13.5-16.0); Immature Granulocytes Auto 0.14 Thou/mm3 (0.00-0.00); Lymphocytes # (Auto) 1.4 Thou/mm3 (1.0-4.8); Lymphocytes % (Auto) 10 % (10-50); Mean Corpuscular HGB Conc 32.7 g/dl (31.0-37.0); Mean Corpuscular Hemoglobin 25.5 pg (25.0-35.0); Mean Corpuscular Volume 78 fL (80-100); Monocytes # (Auto) 1.1 Thou/mm3 (0.0-0.8); Monocytes % (Auto) 7 % (0-12); Neutrophils # (Auto) 12.1 Thou/mm3 (1.8-7.7); Neutrophils % (Auto) 82 % (37-80); Nucleated Red Blood Cell # 0.02 Thou/mm3 (0.00-0.00); Nucleated Red Blood Cell % 0 /100 WBC (0); Platelet Count 308 Thou/mm3 (140-440); RDW Standard Deviation 39.5 fL (35.1-43.9); Red Blood Count 4.95 Miln/mm3 (4.50-5.90); White Blood Count 14.8 Thou/mm3 (3.8-10.6)
[2025-01-06 06:26] LABS: Alanine Aminotransferase 37 U/L (10-49); Albumin, Serum 3.6 gm/dL (3.5-5.0); Albumin/Globulin Ratio 1.2 (1.2-2.2); Alkaline Phosphatase 199 U/L (46-116); Anion Gap 10 (7-16); Aspartate Amino Transferase 24 U/L (0-34); BUN/Creatinine Ratio 14 Ratio (12-20); Bilirubin,Total 0.6 mg/dL (0.3-1.2); Blood Urea Nitrogen 7 mg/dL (9-23); Calcium 8.2 mg/dL (8.3-10.6); Calcium (Corrected) 8.5 mg/dL (8.5-10.1); Carbon Dioxide 23.6 mMol/L (20.0-31.0); Chloride 97 mMol/L (98-107); Creatinine (Component) 0.5 mg/dL (0.6-1.3); Estimated Creatinine Clearance 148.2 mL/min (>60); Globulin 2.9 gm/dL (2.3-3.5); Glucose 131 mg/dL (74-106); Magnesium 1.9 mg/dL (1.6-2.6); Osmolality,Calculated 262 (275-295); Phosphorous 2.6 mg/dL (2.4-5.1); Potassium 3.5 mMol/L (3.4-5.1); Sodium 131 mMol/L (136-145); Total Protein 6.5 gm/dL (5.7-8.2); eGFR > 60 See Note
[2025-01-06] MEDS: INSULIN LISPRO (AdmeLOG) 1 UNIT/0.01 ML UNIT SC ×3 (07:50→20:48)
[2025-01-06] MEDS: LOSARTAN POTASSIUM 25 MG TABLET 50 MG PO (08:19)
[2025-01-06] MEDS: levETIRAcetam INJ 100 MG/ML VIAL 5ML 500 MG IVP (08:20)
--- NOTE | 2025-01-06 12:19 | ESPR_ITS ---
<Statement entered by Kendell Plascencia MD - 01/06/25 16:22> Patient seen and assessed in hospital bed noting improvement in presenting symptoms; however, patient's laboratory findings are concerning for possible IBD flare. Patient's white blood cell count is uptrending; moreover, although the patient is not having as severe abdominal pain as he was, there is still some tenderness to palpation. Gastroenterology agrees on pursuing colonoscopy; moreover, patient will begin on GoLytely and clear liquid diet for tentatively scheduled colonoscopy today or tomorrow. Will continue to monitor the patient for any acute findings and expect discharge in 48 hours. I have personally seen and examined the patient. I agree with the resident's assessment and plan as documented below. Kendell Plascencia DO PGY-2 Internal Medicine - [facility] Documentation for date of: 01/06/25 Subjective Subjective Interval history: No acute events overnight. Had about 4 bowel movements overnight. Continues to endorse improvement in abdominal tenderness. Passing gas. Reports that he is eating well, however nurse reports that he is only eating half of his meals. He needs to have lower abdominal tenderness, especially on the right side. WBC uptrending, repeat CBC at 11 AM continues to show trend upward. Will recheck ESR, CRP, blood culture. Last blood cultures was negative, 1/2 bottles contaminated with staph epi. Of note patient already completed IV Zosyn for 5 days, followed by IV ceftriaxone and metronidazole for another 3 days. Will order ultrasound abdomen for possible appendicitis. Stool culture negative, still pending stool calprotectin and Giardia. Concern for possible IBD, consulted Dr. Oliveira who will proceed with colonoscopy. Started on clear liquid diet. Exam Vital Signs Temp Pulse Resp BP Pulse Ox O2 Del Method O2 Flow Rate 97.2 F 108 H 18 140/90 H 95 Room Air 2 01/06/25 08:00 01/06/25 08:19 01/06/25 08:00 01/06/25 08:19 01/06/25 08:00 01/06/25 08:00 01/01/25 12:00 Narrative Exam Physical Exam General: Awake and in no acute distress. Conversational and non-toxic appearing. Lying comfortably in bed. HEENT: Normocephalic, atraumatic, mucous membranes moist. Heart: Regular rate and rhythm, normal S1 and S2, no murmurs. Lungs: Clear to auscultation with no wheezing or crackles. Abdomen: Soft, mildly distended, tenderness of right abdomen, positive bowel sounds. Neurologic: Alert and oriented x3, weakness in left half of the body (chronic). Extremities: No edema. Scabbed scratch estes on left lower extremity. Skin: No rash or ecchymoses Objective Labs 01/08/25 04:39 01/08/25 04:39 Labs: Laboratory Results - last 24 hr 01/06/25 05:10 WBC 14.8 H RBC 4.95 Hgb 12.6 L Hct 38.5 L MCV 78 L MCH 25.5 MCHC 32.7 RDW Std Deviation 39.5 Plt Count 308 D Neut % (Auto) 82 H Lymph % (Auto) 10 [place] % (Auto) 7 Eos % (Auto) 0 Baso % (Auto) 0 Neut # (Auto) 12.1 H Lymph # (Auto) 1.4 [place] # (Auto) 1.1 H Eos # (Auto) 0.0 Baso # (Auto) 0.0 Immature Gran # (Auto) 0.14 H Absolute Nucleated RBC 0.02 H Immature Gran % 1 H Nucleated RBC % 0 Sodium 131 L Potassium 3.5 Chloride 97 L Carbon Dioxide 23.6 Anion Gap 10 BUN 7 L Creatinine 0.5 L Estim Creat Clear Calc 148.2 eGFR > 60 BUN/Creatinine Ratio 14 Glucose 131 H Calculated Osmolality 262 L Calcium 8.2 L Corrected Calcium 8.5 Phosphorus 2.6 Magnesium 1.9 Total Bilirubin 0.6 AST 24 ALT 37 Alkaline Phosphatase 199 H Total Protein 6.5 Albumin 3.6 Globulin 2.9 Albumin/Globulin Ratio 1.2 Quality Measures Quality Measures none Assessment & Plan Assessment Current Active Medications: Generic Name Dose Route Start Last Admin Trade Name Freq PRN Reason Stop Dose Admin Acetaminophen 650 mg 12/31/24 17:05 Acetaminophen Supp 650 Mg Supp OR 01/27/25 10:14 Q6HR PRN Fever > 101 or pain 1-3 Amlodipine Besylate 10 mg 01/06/25 09:00 01/06/25 08:19 Amlodipine Besylate 5 Mg Tablet PO 02/05/25 08:59 10 mg QDAY GIOVANNI Administration Dextrose 25 ml 12/26/24 15:36 Dextrose 50%-Water Inj 50 Ml Syringe IV 01/25/25 15:35 Q15MIN PRN BG 50-70 responsive npo pt Dextrose 50 ml 12/26/24 15:36 Dextrose 50%-Water Inj 50 Ml Syringe IV 01/25/25 15:35 Q15MIN PRN BG <50 OR BG <70 & pt unresponsive Glucagon 1 mg 12/26/24 15:36 Glucagon Inj 1 Mg Vial IM Q15MIN PRN BG <70, and no IV access Heparin Sodium (Porcine) 5,000 unit 12/26/24 15:30 01/06/25 05:19 Heparin Sod Inj 5000 Unit/Ml Vial SC 01/09/25 15:29 5,000 unit Q8HR GIOVANNI Administration Hydromorphone HCl 1 mg 12/31/24 17:05 01/01/25 21:48 Hydromorphone Inj 2 Mg/Ml Vial IVP 01/08/25 17:04 1 mg Q6HR PRN Administration Pain 4-10 Insulin Degludec 36 unit 01/03/25 21:00 01/05/25 21:12 Insulin Degludec 5 Unit/0.05 Ml (Per 5 Units) ID 02/02/25 20:59 36 unit HS GIOVANNI Administration Insulin Human Lispro 0 unit 01/05/25 07:30 01/06/25 11:42 Insulin Lispro (Admelog) 1 Unit/0.01 Ml Unit ID 02/04/25 07:29 Not Given ACHS [facility] Protocol Labetalol HCl 10 mg 12/29/24 07:57 Labetalol Inj 5 Mg/Ml Vial 20 Ml IVP 01/28/25 07:56 Q12HR PRN hypertension Levetiracetam 500 mg 12/29/24 21:00 01/06/25 08:20 Levetiracetam Inj 100 Mg/Ml Vial 5ml IVP 01/28/25 20:59 500 mg Q12HR GIOVANNI Administration Losartan Potassium 50 mg 01/06/25 09:00 01/06/25 08:19 Losartan Potassium 25 Mg Tablet PO 02/05/25 08:59 50 mg QDAY GIOVANNI Administration Metoclopramide HCl 10 mg 01/03/25 10:05 01/06/25 11:28 Metoclopramide Inj 5 Mg/Ml Vial 2 Ml IVP 02/02/25 10:04 10 mg Q6HR GIOVANNI Administration Protocol Ondansetron HCl 4 mg 12/26/24 15:34 12/29/24 09:23 Ondansetron Inj 2 Mg/Ml Inj 2 Ml IVP 01/25/25 15:33 4 mg Q6HR PRN Administration NAUSEA OR VOMITING Protocol Pantoprazole Sodium 40 mg 12/26/24 15:45 01/06/25 08:20 Pantoprazole Inj 40 Mg Vial IVP 01/25/25 15:44 40 mg QDAY GIOVANNI Administration Sennosides 1 tab 01/06/25 09:00 01/06/25 09:02 Senna Tablet PO 02/05/25 08:59 1 tab QDAY GIOVANNI Administration Protocol Plan Patient is a 54 year old male with PMH of 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 #Sepsis /2 #Terminal ileitis, infectious versus inflammatory #Leukocytosis, reactive versus infectious cause #HAGMA, resolved #Lactic acidosis, resolved On admission, meets 3/4 SIRS criteria: tachycardic HR 137, temp increased to 104F, WBC 18,000. Anion gap 18 and bicarb 19.8. Procalc elevated at 3.1. Admission lactic acid elevated 6.0 -> 5.5 with fluid bolus. Beta hydroxybutyrate mildly increased at 0.7 and glucose 366, low concern for DKA/HHS. Patient denies history of inflammatory bowel or autoimmune diseases, however patient is a poor historian. Patient denies blood in stool or diarrhea as of late. Denies recent sick contacts or usual food exposure. CT A/P 12/26 shows severe terminal ilietis and cystitis, no bowel obstruction observed. BCX 12/26: 04/27 bottles grew Staph epi, likely contaminant. Repeat BCx 12/30 negative. WBC 18.0 (admission) -> 18.6. CRP elevated at 31.6. Resolution of lactic acidosis and HAGMA w IV fluids. ANCA, anti-proteinase 3, anti myeloperoxidase all negative. Stool white cells 3+. Campylobacter, E. coli Shiga toxin, Salmonella, Shigella all negative. S/p IV Zosyn for SBP prophylaxis (12/26-12/31), followed by IV CFX 1g and IV metronidazole 500 mg BID (12/31-01/02). 01/06: Leukocytosis initially improving, uptrending again. Afebrile but tachycardic. Plan: - Start GoLytely prep, clear liquid diet, prep for colonoscopy - Follow up stool culture, Giardia, Norovirus - Pending stool calprotectin - US abdomen to rule out appendicitis - Follow up ESR, CRP, and lactic acid - Repeat BCx #SBO, resolved #Hx chronic constipation #c/f SBO given history History of SBO, no surgeries or decompression done. Last bowel movement 4 days ago, reports only has bowel movements once a week. Able to pass gas. Had 1 episode of nonbilious nonblood emesis in ED. Last meal was breakfast day of admission. Endorsed lower abdominal pain, however has generalized tenderness. As above, CT A/P did not note obstruction, only terminal ilietis. Has extensive prn bowel regimen at rehab center (has been there since 06/2023 for residual left sided weakness from CVA). Consulted surgeon Dr. Degroot, not concerned for SBO, no need for surgical intervention at this time. Recommended consulting GI. Gastrografin 12/28 continued to show small bowel obstruction. XR abdomen 12/29 - 01/03 continue to show air-filled dilated small bowel. Gastrografin 01/03 showed contrast in colon, no obstruction results. Patient started passing bowel movements with IV Reglan 5 mg q6hr. Plan: - Consulted surgery Dr. Degroot, appreciate recommendations: Advance diet as tolerated - Consulted GI Dr. Oliveira, appreciate recommendations: Clear liquid diet for colonoscopy - Pain regimen: Tylenol and IV dilaudid 1mg q6hr prn - Peptic ulcer diet - Monitor BMP for refeeding syndrome, replete electrolytes as needed - IV protonix 40 mg - IV Zofran 4mg prn #Pyuria #Hematuria #Cystitis UA 12/26 showed WBC 27, RBC 27; negative leukocyte esterase, nitrites, and bacteria. Budding yeast present. Previously grew Morganella morganii on urine culture 12/21/17. CT A/P 12/26/24 shows bladder wall thickening, with concern for cystitis. UCx positive for yeast. 04/27 BCx grew Staph epidermis, likely contaminant. Not complaining of urinary symptoms. Repeat BCx negative. Plan: - CTM urinary symptoms #Insulin dependent DM Takes insuline glargine 33 units and Novolog at rehab center. Last meal breakfast, currently NPO. UA 9/2 glucose 4+ with budding yeast, likely uncontrolled. SGLT-2 not on home medication list. Plan: - Insulin degludec 36 HS - SSI step 3 - CTM glucose and insulin requirements, will adjust accordingly #Hypertension Taking amlodipine 10 mg daily, clonidine 0.3 mg TID, and losartan 50 mg daily. BP 158/101 on admission, improved now to 122/64 after pain control. Plan: - Home dose losartan and amlodipine - IV labetalol 10 mg as needed if SBP greater than 180 - CTM BP #Hx hemorrhagic CVA (2018) #Stroke prophylaxis Home med Keppra 1000mg BID. Patient has no history of seizures. Likely was started prophylactically after his stroke. Plan: - Keppra 500 mg twice daily injections Health Maintenance Disposition: Medsurg DVT prophylaxis: Heparin SQ GI prophylaxis: IV protonix 40 mg daily Bowel regimen: GoLytely Diet: Clear liquid diet, possible n.p.o. after midnight CODE STATUS: FULL Patient plan of care was discussed with the resident, Dr. Plascencia, and the attending physician, Dr. Cano. Patience Mckinnon, PGY-1 Attending Provider Attestation/Addendum I attest that I was physically present for the evaluation, physical examination, lab and imaging review of the patient with the residents. I discussed the case with the residents and agree with the findings and plans of care as documented above. At bedside today, patient states he feels okay but noted to have tenderness, mostly right lower quadrant. His WBC count also noted to be uptrending from 14.8-17.0 today. Chemistry panel is stable. He had 4 bowel movements overnight and is passing gas. He has not been having good oral intake. We will obtain ESR, CRP and blood culture. We will obtain abdominal ultrasound. Discussed with gastroenterology, patient will be scheduled for colonoscopy, we will start GoLytely preparation. Filiberto Cano MD
[2025-01-06 13:02] LABS: Basophils # (Auto) 0.0 Thou/mm3 (0.0-0.2); Basophils % (Auto) 0 % (0-2.5); Eosinophils # (Auto) 0.0 Thou/mm3 (0.0-0.5); Eosinophils % (Auto) 0 % (0-10); Hematocrit 41.2 % (41.0-53.0); Hemoglobin 13.7 g/dL (13.5-16.0); Immature Granulocytes Auto 0.20 Thou/mm3 (0.00-0.00); Lymphocytes # (Auto) 1.7 Thou/mm3 (1.0-4.8); Lymphocytes % (Auto) 10 % (10-50); Mean Corpuscular HGB Conc 33.3 g/dl (31.0-37.0); Mean Corpuscular Hemoglobin 25.9 pg (25.0-35.0); Mean Corpuscular Volume 78 fL (80-100); Monocytes # (Auto) 1.2 Thou/mm3 (0.0-0.8); Monocytes % (Auto) 7 % (0-12); Neutrophils # (Auto) 13.9 Thou/mm3 (1.8-7.7); Neutrophils % (Auto) 82 % (37-80); Nucleated Red Blood Cell # 0.00 Thou/mm3 (0.00-0.00); Nucleated Red Blood Cell % 0 /100 WBC (0); Platelet Count 237 Thou/mm3 (140-440); RDW Standard Deviation 40.0 fL (35.1-43.9); Red Blood Count 5.28 Miln/mm3 (4.50-5.90); White Blood Count 17.0 Thou/mm3 (3.8-10.6)
--- NOTE | 2025-01-06 15:20 | XR_ITS ---
Examination: Abdomen sonogram, Limited Date and time of exam: January 06, 2025, 1557 hrs. Indications: Abdominal distention 2 weeks, CT scan December 26, 2024 severe inflammation of the ileum, terminal ileal segment Technique: Real-time scale transabdominal sonographic images of the upper abdomen obtained. Findings: Heterogeneous mass adjacent to the iliac vessels, noncompressible, 19 x 13 x 10 mm, sonographically appendicitis versus enteritis mass such as enlarged inflamed ileum Impression: 19 x 13 x 10 mm heterogeneous mass adjacent to the iliac vessels in the lower abdomen, differential would include appendicitis, inflamed thickened terminal ileum, such as Crohn's disease Recommend repeat CT abdomen pelvis post intravenous contrast
[2025-01-06 15:43] LABS: Lactate (Lactic Acid) 1.0 mMol/L (0.4-2.0)
[2025-01-06 15:53] LABS: Sed Rate (ESR) 63 mm/hr (0-20)
[2025-01-06 16:06] LABS: C-Reactive Protein 9.8 mg/dL (0.0-0.9)
[2025-01-06] MEDS: NA SU/NAHCO3/KC/PEG (Golytely) 4,000 ML BTL 4000 ML PO (16:28)
--- NOTE | 2025-01-06 19:25 | PD.IMPROG ---
Documentation for date of: 01/06/25 Subjective Subjective Interval history: Case discussed with the internal medicine team uptrending WBC count up to 17,000 Agreed to schedule the patient for a colonoscopy after GoLytely prep with possible biopsies of the terminal ileum and colonic biopsies Exam Vital Signs Temp Pulse Resp BP Pulse Ox O2 Del Method O2 Flow Rate 97.9 F 82 19 143/78 H 96 Room Air 2 01/06/25 16:00 01/06/25 16:00 01/06/25 16:00 01/06/25 16:00 01/06/25 16:00 01/06/25 16:00 01/01/25 12:00 Objective Labs 01/06/25 12:18 01/06/25 05:10 Labs: Laboratory Results - last 24 hr 01/06/25 01/06/25 01/06/25 05:10 12:18 15:20 WBC 14.8 H 17.0 H RBC 4.95 5.28 Hgb 12.6 L 13.7 Hct 38.5 L 41.2 MCV 78 L 78 L MCH 25.5 25.9 MCHC 32.7 33.3 RDW Std Deviation 39.5 40.0 Plt Count 308 D 237 D Neut % (Auto) 82 H 82 H Lymph % (Auto) 10 10 [place] % (Auto) 7 7 Eos % (Auto) 0 0 Baso % (Auto) 0 0 Neut # (Auto) 12.1 H 13.9 H Lymph # (Auto) 1.4 1.7 [place] # (Auto) 1.1 H 1.2 H Eos # (Auto) 0.0 0.0 Baso # (Auto) 0.0 0.0 Immature Gran # (Auto) 0.14 H 0.20 H Absolute Nucleated RBC 0.02 H 0.00 Immature Gran % 1 H 1 H Nucleated RBC % 0 0 ESR 63 H Sodium 131 L Potassium 3.5 Chloride 97 L Carbon Dioxide 23.6 Anion Gap 10 BUN 7 L Creatinine 0.5 L Estim Creat Clear Calc 148.2 eGFR > 60 BUN/Creatinine Ratio 14 Glucose 131 H Calculated Osmolality 262 L Lactic Acid 1.0 Calcium 8.2 L Corrected Calcium 8.5 Phosphorus 2.6 Magnesium 1.9 Total Bilirubin 0.6 AST 24 ALT 37 Alkaline Phosphatase 199 H C-Reactive Prot, Quant 9.8 H Total Protein 6.5 Albumin 3.6 Globulin 2.9 Albumin/Globulin Ratio 1.2 Impressions Impression: Uptrending WBC count/leukocytosis Pain abdomen with abdominal distention Schedule colonoscopy with biopsies Assessment & Plan A&P Narrative # Abnormal CT scan of the abdomen pelvis showing inflammation seen this terminal ileum with increased stool burden Differential diagnosis in the setting of regional ileitis is inflammatory versus infectious Because of the large stool burden: Needs to be flushed out Plan KUB GoLytely flush If patient starts vomiting with the GoLytely insert NGT to intermittent Gomco suction Will follow the patient ANCA antibody CRP Other medical problems include Hemorrhagic CVA with left-sided motor weakness Seizure disorder Essential hypertension Diabetes mellitus type 2 Thank you very much for the opportunity to participate in the care of this patient Time Spent With Patient Time: Total time spent is greater than 50% in coordination of care (as documented) at patient's floor/unit and/or counseling patient:
[2025-01-06] MEDS: INSULIN DEGLUDEC 5 UNIT/0.05 ML (PER 5 UNITS) 36 UNIT SC (20:47)
[2025-01-06] MEDS: MELATONIN 3 MG TABLET 6 MG PO (21:32)
[2025-01-06] MEDS: HYDROmorphone INJ 2 MG/ML VIAL 1 MG IVP (22:36)
[2025-01-07] VITALS (9 sets, daily range): BP systolic 107–141; BP diastolic 72–100; PULSE 104–117; RESP 15–25; TEMP 36.1–36.9; O2SAT 94–97
[2025-01-07] MEDS: METOCLOPRAMIDE INJ 5 MG/ML VIAL 2 ML 10 MG IVP ×5 (00:16→23:16)
[2025-01-07] MEDS: HEPARIN SOD INJ 5000 UNIT/ML VIAL SC ×3 (05:08→21:45)
[2025-01-07 05:10] LABS: Basophils # (Auto) 0.0 Thou/mm3 (0.0-0.2); Basophils % (Auto) 0 % (0-2.5); Eosinophils # (Auto) 0.0 Thou/mm3 (0.0-0.5); Eosinophils % (Auto) 0 % (0-10); Hematocrit 36.3 % (41.0-53.0); Hemoglobin 12.1 g/dL (13.5-16.0); Immature Granulocytes Auto 0.18 Thou/mm3 (0.00-0.00); Lymphocytes # (Auto) 1.7 Thou/mm3 (1.0-4.8); Lymphocytes % (Auto) 9 % (10-50); Mean Corpuscular HGB Conc 33.3 g/dl (31.0-37.0); Mean Corpuscular Hemoglobin 25.9 pg (25.0-35.0); Mean Corpuscular Volume 78 fL (80-100); Monocytes # (Auto) 1.2 Thou/mm3 (0.0-0.8); Monocytes % (Auto) 6 % (0-12); Neutrophils # (Auto) 15.7 Thou/mm3 (1.8-7.7); Neutrophils % (Auto) 83 % (37-80); Nucleated Red Blood Cell # 0.00 Thou/mm3 (0.00-0.00); Nucleated Red Blood Cell % 0 /100 WBC (0); Platelet Count 322 Thou/mm3 (140-440); RDW Standard Deviation 40.0 fL (35.1-43.9); Red Blood Count 4.67 Miln/mm3 (4.50-5.90); White Blood Count 18.9 Thou/mm3 (3.8-10.6)
[2025-01-07 05:33] LABS: Alanine Aminotransferase 31 U/L (10-49); Albumin, Serum 3.5 gm/dL (3.5-5.0); Albumin/Globulin Ratio 1.2 (1.2-2.2); Alkaline Phosphatase 198 U/L (46-116); Anion Gap 11 (7-16); Aspartate Amino Transferase 18 U/L (0-34); BUN/Creatinine Ratio 14 Ratio (12-20); Bilirubin,Total 0.7 mg/dL (0.3-1.2); Blood Urea Nitrogen 7 mg/dL (9-23); Calcium 7.9 mg/dL (8.3-10.6); Calcium (Corrected) 8.3 mg/dL (8.5-10.1); Carbon Dioxide 23.5 mMol/L (20.0-31.0); Chloride 96 mMol/L (98-107); Creatinine (Component) 0.5 mg/dL (0.6-1.3); Estimated Creatinine Clearance 151.5 mL/min (>60); Globulin 2.9 gm/dL (2.3-3.5); Glucose 154 mg/dL (74-106); Magnesium 1.9 mg/dL (1.6-2.6); Osmolality,Calculated 261 (275-295); Phosphorous 2.9 mg/dL (2.4-5.1); Potassium 3.3 mMol/L (3.4-5.1); Sodium 130 mMol/L (136-145); Total Protein 6.4 gm/dL (5.7-8.2); eGFR > 60 See Note
[2025-01-07] MEDS: INSULIN LISPRO (AdmeLOG) 1 UNIT/0.01 ML UNIT SC ×4 (07:52→21:46)
--- NOTE | 2025-01-07 09:08 | XR_ITS ---
Examination: CT abdomen with intravenous contrast CT pelvis with intravenous contrast 2-D coronal reconstructions 2-D sagittal reconstructions Date and time of exam:January 07, 2025 at 1534 hrs. Indications: Abdominal pain beginning 2 days ago. CTDI: vol (mGy) 11.9 DLP: (mGycm) 728 Technique: Multiple axial sections of the abdomen and pelvis have been obtained. 64 slice high-resolution scanner used. 3 mm axial sections have been obtained, post intravenous injection 60 cc [id number]. 2-D sagittal, coronal reconstructions obtained. Low dose protocols were performed. One or more of the following dose reduction techniques were used; automated exposure control, adjustment of the mA and/or KV according to patient size, use of iterative reconstruction technique. Findings: Atelectasis in the right lower lung zone. No visualized liver or splenic lesion. Absent gallbladder. No pancreatic mass. No hydronephrosis. Aorta normal size. Multiple fluid distended small bowel loops, small bowel obstruction pattern The appendix 6 does not appear enlarged There is a diffuse severe colitis pattern Urinary bladder wall shows mild thickening Impression: Small bowel obstruction pattern This appears to be secondary to severe nonspecific colitis, differential would include ulcerative colitis, Crohn's disease
[2025-01-07] MEDS: RINGERS LACTATED 1000 ML 1,000 ML 125 ML IV (09:15)
[2025-01-07] MEDS: LOSARTAN POTASSIUM 25 MG TABLET 50 MG PO (09:17)
[2025-01-07] MEDS: PANTOPRAZOLE 40 MG TABLET PO (09:17)
[2025-01-07] MEDS: POTASSIUM CHL 10 mEq IVPB 10 MEQ/100 ML BAG 100 MEQ IV ×4 (10:26→14:24)
[2025-01-07] MEDS: CEFOXITIN 2 GM in SODIUM CHLORIDE 0.9% (Popper) 50 ML IV ×3 (10:27→23:16)
--- NOTE | 2025-01-07 14:51 | PC.SS ---
Rounding note: WBC elevated, Abdominal scan pending, and on IV antibiotics. Discharging to [facility] when medically clear.
--- NOTE | 2025-01-07 16:13 | XR_ITS ---
Examination: AP chest single view Technique: AP portable sitting chest single view Date and time: January 07, 2025, 1623 hrs., Comparison December 27, 2024 Indications: Post orogastric tube placement. Findings: Orogastric tube in the stomach satisfactory position Reduced inspiratory effort. No significant cardiac enlargement Impression: Orogastric tube in the stomach satisfactory position.
--- NOTE | 2025-01-07 17:17 | PD.IMPROG ---
Documentation for date of: 01/07/25 Subjective Subjective Interval history: Patient somewhat uncooperative drinking the GoLytely after discussed placement of a NGT he said he will Drink the GoLytely in the presence of the nursing staff Exam Vital Signs Temp Pulse Resp BP Pulse Ox O2 Del Method O2 Flow Rate 97.1 F 105 H 25 H 141/85 H 96 Room Air 2 01/07/25 12:00 01/07/25 12:00 01/07/25 12:00 01/07/25 12:00 01/07/25 12:00 01/07/25 12:00 01/01/25 12:00 Objective Labs 01/07/25 04:44 01/07/25 04:44 Labs: Laboratory Results - last 24 hr 01/07/25 04:44 WBC 18.9 H RBC 4.67 Hgb 12.1 L Hct 36.3 L MCV 78 L MCH 25.9 MCHC 33.3 RDW Std Deviation 40.0 Plt Count 322 D Neut % (Auto) 83 H Lymph % (Auto) 9 L [place] % (Auto) 6 Eos % (Auto) 0 Baso % (Auto) 0 Neut # (Auto) 15.7 H Lymph # (Auto) 1.7 [place] # (Auto) 1.2 H Eos # (Auto) 0.0 Baso # (Auto) 0.0 Immature Gran # (Auto) 0.18 H Absolute Nucleated RBC 0.00 Immature Gran % 1 H Nucleated RBC % 0 Sodium 130 L Potassium 3.3 L Chloride 96 L Carbon Dioxide 23.5 Anion Gap 11 BUN 7 L Creatinine 0.5 L Estim Creat Clear Calc 151.5 eGFR > 60 BUN/Creatinine Ratio 14 Glucose 154 H Calculated Osmolality 261 L Calcium 7.9 L Corrected Calcium 8.3 L Phosphorus 2.9 Magnesium 1.9 Total Bilirubin 0.7 AST 18 ALT 31 Alkaline Phosphatase 198 H Total Protein 6.4 Albumin 3.5 Globulin 2.9 Albumin/Globulin Ratio 1.2 Impressions Impression: Abnormal CT scan of the abdomen pelvis Colonoscopy prep in progress reschedule colonoscopy for tomorrow Assessment & Plan A&P Narrative # Abnormal CT scan of the abdomen pelvis showing inflammation seen this terminal ileum with increased stool burden Differential diagnosis in the setting of regional ileitis is inflammatory versus infectious Because of the large stool burden: Needs to be flushed out Plan KUB GoLytely flush If patient starts vomiting with the GoLytely insert NGT to intermittent [place] suction Will follow the patient ANCA antibody CRP Other medical problems include Hemorrhagic CVA with left-sided motor weakness Seizure disorder Essential hypertension Diabetes mellitus type 2 Thank you very much for the opportunity to participate in the care of this patient Time Spent With Patient Time: Total time spent is greater than 50% in coordination of care (as documented) at patient's floor/unit and/or counseling patient:
--- NOTE | 2025-01-07 17:28 | ESPR_ITS ---
Documentation for date of: 01/07/25 Subjective Subjective Interval history: no acute overnight events. Patient still complaining of abdominal pain in the right lower quadrant. Vitals are stable but noted to have sinus tachycardia. Labs done this morning showed uptrending, 18.9. Abdominal ultrasound done yesterday showed 1.9 cm mass on the right side of the abdomen. Dr Degroot was consulted. He recommended to follow-up with CT abdomen pelvis with IV contrast. Auto Leasing Manager, Dr. Oliveira is consulted and he recommended to continue with GoLytely prep colonoscopy once the prep is completed. Patient was started on cefoxitin in view of intra-abdominal infection. Will continue to monitor CBC and patient symptoms. Exam Vital Signs Temp Pulse Resp BP Pulse Ox O2 Del Method O2 Flow Rate 97.1 F 105 H 25 H 141/85 H 96 Room Air 2 01/07/25 12:00 01/07/25 12:00 01/07/25 12:00 01/07/25 12:00 01/07/25 12:00 01/07/25 12:01/01/25 12:00 Narrative Exam Physical Exam General: Awake and in no acute distress. Conversational and non-toxic appearing. Lying comfortably in bed. HEENT: Normocephalic, atraumatic, mucous membranes moist. Heart: Regular rate and rhythm, normal S1 and S2, no murmurs. Lungs: Clear to auscultation with no wheezing or crackles. Abdomen: Soft, mildly distended, tenderness of right abdomen, positive bowel sounds. Neurologic: Alert and oriented x3, weakness in left half of the body (chronic). Extremities: No edema. Scabbed scratch estes on left lower extremity. Skin: No rash or ecchymoses Objective Labs 01/08/25 04:39 01/08/25 04:39 Labs: Laboratory Results - last 24 hr 01/07/25 04:44 WBC 18.9 H RBC 4.67 Hgb 12.1 L Hct 36.3 L MCV 78 L MCH 25.9 MCHC 33.3 RDW Std Deviation 40.0 Plt Count 322 D Neut % (Auto) 83 H Lymph % (Auto) 9 L [place] % (Auto) 6 Eos % (Auto) 0 Baso % (Auto) 0 Neut # (Auto) 15.7 H Lymph # (Auto) 1.7 [place] # (Auto) 1.2 H Eos # (Auto) 0.0 Baso # (Auto) 0.0 Immature Gran # (Auto) 0.18 H Absolute Nucleated RBC 0.00 Immature Gran % 1 H Nucleated RBC % 0 Sodium 130 L Potassium 3.3 L Chloride 96 L Carbon Dioxide 23.5 Anion Gap 11 BUN 7 L Creatinine 0.5 L Estim Creat Clear Calc 151.5 eGFR > 60 BUN/Creatinine Ratio 14 Glucose 154 H Calculated Osmolality 261 L Calcium 7.9 L Corrected Calcium 8.3 L Phosphorus 2.9 Magnesium 1.9 Total Bilirubin 0.7 AST 18 ALT 31 Alkaline Phosphatase 198 H Total Protein 6.4 Albumin 3.5 Globulin 2.9 Albumin/Globulin Ratio 1.2 Quality Measures Quality Measures none Assessment & Plan Assessment Current Active Medications: Generic Name Dose Route Start Last Admin Trade Name Freq PRN Reason Stop Dose Admin Acetaminophen 650 mg 12/31/24 17:05 Acetaminophen Supp 650 Mg Supp NM 01/27/25 10:14 Q6HR PRN Fever > 101 or pain 1-3 Amlodipine Besylate 10 mg 01/06/25 09:00 01/07/25 09:18 Amlodipine Besylate 5 Mg Tablet PO 02/05/25 08:59 10 mg QDAY GIOVANNI Administration Benzonatate 100 mg 01/06/25 14:40 Benzonatate 100 Mg Capsule PO 02/05/25 14:39 Q8HR PRN COUGH Protocol Dextrose 25 ml 12/26/24 15:36 Dextrose 50%-Water Inj 50 Ml Syringe IV 01/25/25 15:35 Q15MIN PRN BG 50-70 responsive npo pt Dextrose 50 ml 12/26/24 15:36 Dextrose 50%-Water Inj 50 Ml Syringe IV 01/25/25 15:35 Q15MIN PRN BG <50 OR BG <70 & pt unresponsive Glucagon 1 mg 12/26/24 15:36 Glucagon Inj 1 Mg Vial IM Q15MIN PRN BG <70, and no IV access Heparin Sodium (Porcine) 5,000 unit 12/26/24 15:30 01/07/25 14:24 Heparin Sod Inj 5000 Unit/Ml Vial SC 01/09/25 15:29 5,000 unit Q8HR GIOVANNI Administration Hydromorphone HCl 1 mg 12/31/24 17:05 01/06/25 22:36 Hydromorphone Inj 2 Mg/Ml Vial IVP 01/08/25 17:04 1 mg Q6HR PRN Administration Pain 4-10 Cefoxitin Sodium 2 gm/ Sodium 50 mls @ 100 mls/hr 01/07/25 10:15 01/07/25 17:10 Chloride IV 01/14/25 10:14 100 mls/hr Q6HR GIOVANNI Administration Insulin Degludec 36 unit 01/03/25 21:00 01/06/25 20:47 Insulin Degludec 5 Unit/0.05 Ml (Per 5 Units) SC 02/02/25 20:59 36 unit HS GIOVANNI Administration Insulin Human Lispro 0 unit 01/05/25 07:30 01/07/25 17:16 Insulin Lispro (Admelog) 1 Unit/0.01 Ml Unit SC 02/04/25 07:29 2 unit ACHS GIOVANNI Administration Protocol Labetalol HCl 10 mg 12/29/24 07:57 Labetalol Inj 5 Mg/Ml Vial 20 Ml IVP 01/28/25 07:56 Q12HR PRN hypertension Levetiracetam 500 mg 01/06/25 21:00 01/07/25 09:18 Levetiracetam 250 Mg Tablet PO 02/05/25 20:59 500 mg Q12HR GIOVANNI Administration Losartan Potassium 50 mg 01/06/25 09:00 01/07/25 09:17 Losartan Potassium 25 Mg Tablet PO 02/05/25 08:59 50 mg QDAY GIOVANNI Administration Metoclopramide HCl 10 mg 01/03/25 10:05 01/07/25 17:11 Metoclopramide Inj 5 Mg/Ml Vial 2 Ml IVP 02/02/25 10:04 10 mg Q6HR GIOVANNI Administration Protocol Ondansetron HCl 4 mg 12/26/24 15:34 12/29/24 09:23 Ondansetron Inj 2 Mg/Ml Inj 2 Ml IVP 01/25/25 15:33 4 mg Q6HR PRN Administration NAUSEA OR VOMITING Protocol Pantoprazole Sodium 40 mg 01/07/25 09:00 01/07/25 09:17 Pantoprazole 40 Mg Tablet PO 02/06/25 08:59 40 mg QDAY GIOVANNI Administration Sennosides 1 tab 01/06/25 09:00 01/07/25 09:18 Senna Tablet PO 02/05/25 08:59 1 tab QDAY GIOVANNI Administration Protocol Plan Patient is a 54 year old male with PMH of 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 #Sepsis /2 #Terminal ileitis, infectious versus inflammatory #Leukocytosis, reactive versus infectious cause #HAGMA, resolved #Lactic acidosis, resolved On admission, meets 3/4 SIRS criteria: tachycardic HR 137, temp increased to 104F, WBC 18,000. Anion gap 18 and bicarb 19.8. Procalc elevated at 3.1. Admission lactic acid elevated 6.0 -> 5.5 with fluid bolus. Beta hydroxybutyrate mildly increased at 0.7 and glucose 366, low concern for DKA/HHS. Patient denies history of inflammatory bowel or autoimmune diseases, however patient is a poor historian. Patient denies blood in stool or diarrhea as of late. Denies recent sick contacts or usual food exposure. CT A/P 12/26 shows severe terminal ilietis and cystitis, no bowel obstruction observed. BCX 12/26: 04/27 bottles grew Staph epi, likely contaminant. Repeat BCx 12/30 negative. WBC 18.0 (admission) -> 18.6. CRP elevated at 31.6. Resolution of lactic acidosis and HAGMA w IV fluids. ANCA, anti-proteinase 3, anti myeloperoxidase all negative. Stool white cells 3+. Campylobacter, E. coli Shiga toxin, Salmonella, Shigella all negative. S/p IV Zosyn for SBP prophylaxis (12/26-12/31), followed by IV CFX 1g and IV metronidazole 500 mg BID (12/31-01/02). 01/06: Leukocytosis initially improving, uptrending again. Afebrile but tachycardic. Plan: - Start GoLytely prep, clear liquid diet, prep for colonoscopy - Follow up stool culture, Giardia, Norovirus - Pending stool calprotectin - US abdomen to rule out appendicitis, found a mass around 1.9cm, follow up CT abdomen/pelvis is ordered - Repeat BCx #SBO, resolved #Hx chronic constipation #c/f SBO given history History of SBO, no surgeries or decompression done. Last bowel movement 4 days ago, reports only has bowel movements once a week. Able to pass gas. Had 1 episode of nonbilious nonblood emesis in ED. Last meal was breakfast day of admission. Endorsed lower abdominal pain, however has generalized tenderness. As above, CT A/P did not note obstruction, only terminal ilietis. Has extensive prn bowel regimen at rehab center (has been there since 06/2023 for residual left sided weakness from CVA). Consulted surgeon Dr. Degroot, not concerned for SBO, no need for surgical intervention at this time. Recommended consulting GI. Gastrografin 12/28 continued to show small bowel obstruction. XR abdomen 12/29 - 01/03 continue to show air-filled dilated small bowel. Gastrografin 01/03 showed contrast in colon, no obstruction results. Patient started passing bowel movements with IV Reglan 5 mg q6hr. Plan: - Consulted surgery Dr. Degroot, appreciate recommendations: Advance diet as tolerated - Consulted GI Dr. Oliveira, appreciate recommendations: Clear liquid diet for colonoscopy - Pain regimen: Tylenol and IV dilaudid 1mg q6hr prn - Peptic ulcer diet - Monitor BMP for refeeding syndrome, replete electrolytes as needed - IV protonix 40 mg - IV Zofran 4mg prn #Pyuria #Hematuria #Cystitis UA 12/26 showed WBC 27, RBC 27; negative leukocyte esterase, nitrites, and bacteria. Budding yeast present. Previously grew Morganella morganii on urine culture 12/21/17. CT A/P 12/26/24 shows bladder wall thickening, with concern for cystitis. UCx positive for yeast. 04/27 BCx grew Staph epidermis, likely contaminant. Not complaining of urinary symptoms. Repeat BCx negative. Plan: - CTM urinary symptoms #Insulin dependent DM Takes insuline glargine 33 units and Novolog at rehab center. Last meal breakfast, currently NPO. UA 12/26 glucose 4+ with budding yeast, likely uncontrolled. SGLT-2 not on home medication list. Plan: - Insulin degludec 36 HS - SSI step 3 - CTM glucose and insulin requirements, will adjust accordingly #Hypertension Taking amlodipine 10 mg daily, clonidine 0.3 mg TID, and losartan 50 mg daily. BP 158/101 on admission, improved now to 122/64 after pain control. Plan: - Home dose losartan and amlodipine - IV labetalol 10 mg as needed if SBP greater than 180 - CTM BP #Hx hemorrhagic CVA (2018) #Stroke prophylaxis Home med Keppra 1000mg BID. Patient has no history of seizures. Likely was started prophylactically after his stroke. Plan: - Keppra 500 mg twice daily injections Health Maintenance Disposition: Medsurg DVT prophylaxis: Heparin SQ GI prophylaxis: IV protonix 40 mg daily Bowel regimen: GoLytely Diet: Clear liquid diet CODE STATUS: FULL Patient plan of care was discussed with the attending physician, Dr. Jerome Downing, PGY2 Attending Provider Attestation/Addendum I attest that I was physically present for the evaluation, physical examination, lab and imaging review of the patient with the residents. I discussed the case with the residents and agree with the findings and plans of care as documented above. Patient seen and examined at bedside this morning. Continues to complain of abdominal pain mostly on right lower quadrant. Continues to have tachycardia and tenderness around right lower quadrant with voluntary guarding. Has bowel sounds over all quadrants and have been passing bowel. Lab results show uptrending WBC, 18.9 this morning. Abdominal ultrasound done yesterday showed mass on the right side of the abdomen concerning for appendicitis, ileitis., IBD. Discussed with general surgery, recommended CT abdomen pelvis with contrast, appreciate recommendations. Discussed with GI, we will continue with GoLytely preparation through NG tube. We will also start him on IV antibiotics for possible intra-abdominal infection. Continues to be on insulin regimen for diabetes, antihypertensives for hypertension and home Keppra. Filiberto Cano MD
[2025-01-07] MEDS: NA SU/NAHCO3/KC/PEG (Golytely) 4,000 ML BTL 4000 ML NG (20:56)
[2025-01-07] MEDS: INSULIN DEGLUDEC 5 UNIT/0.05 ML (PER 5 UNITS) 36 UNIT SC (21:47)
[2025-01-08] VITALS (26 sets, daily range): BP systolic 122–158; BP diastolic 72–105; PULSE 105–117; RESP 13–29; TEMP 36.3–37.6; O2SAT 91–97; BMI 29.8
[2025-01-08 05:22] LABS: Basophils # (Auto) 0.0 Thou/mm3 (0.0-0.2); Basophils % (Auto) 0 % (0-2.5); Eosinophils # (Auto) 0.0 Thou/mm3 (0.0-0.5); Eosinophils % (Auto) 0 % (0-10); Hematocrit 36.6 % (41.0-53.0); Hemoglobin 12.0 g/dL (13.5-16.0); Immature Granulocytes Auto 0.12 Thou/mm3 (0.00-0.00); Lymphocytes # (Auto) 1.6 Thou/mm3 (1.0-4.8); Lymphocytes % (Auto) 10 % (10-50); Mean Corpuscular HGB Conc 32.8 g/dl (31.0-37.0); Mean Corpuscular Hemoglobin 25.6 pg (25.0-35.0); Mean Corpuscular Volume 78 fL (80-100); Monocytes # (Auto) 1.1 Thou/mm3 (0.0-0.8); Monocytes % (Auto) 7 % (0-12); Neutrophils # (Auto) 13.2 Thou/mm3 (1.8-7.7); Neutrophils % (Auto) 82 % (37-80); Nucleated Red Blood Cell # 0.00 Thou/mm3 (0.00-0.00); Nucleated Red Blood Cell % 0 /100 WBC (0); Platelet Count 331 Thou/mm3 (140-440); RDW Standard Deviation 40.5 fL (35.1-43.9); Red Blood Count 4.68 Miln/mm3 (4.50-5.90); White Blood Count 16.1 Thou/mm3 (3.8-10.6)
[2025-01-08] MEDS: METOCLOPRAMIDE INJ 5 MG/ML VIAL 2 ML 10 MG IVP ×4 (05:32→23:55)
[2025-01-08] MEDS: CEFOXITIN 2 GM in SODIUM CHLORIDE 0.9% (Popper) 50 ML IV ×4 (05:33→23:56)
[2025-01-08 05:46] LABS: Alanine Aminotransferase 25 U/L (10-49); Albumin, Serum 3.4 gm/dL (3.5-5.0); Albumin/Globulin Ratio 1.3 (1.2-2.2); Alkaline Phosphatase 194 U/L (46-116); Anion Gap 11 (7-16); Aspartate Amino Transferase 17 U/L (0-34); BUN/Creatinine Ratio 10 Ratio (12-20); Bilirubin,Total 0.8 mg/dL (0.3-1.2); Blood Urea Nitrogen < 5 mg/dL (9-23); Calcium 8.0 mg/dL (8.3-10.6); Calcium (Corrected) 8.5 mg/dL (8.5-10.1); Carbon Dioxide 21.7 mMol/L (20.0-31.0); Chloride 96 mMol/L (98-107); Creatinine (Component) 0.5 mg/dL (0.6-1.3); Estimated Creatinine Clearance 177.2 mL/min (>60); Globulin 2.7 gm/dL (2.3-3.5); Glucose 130 mg/dL (74-106); Magnesium 1.9 mg/dL (1.6-2.6); Osmolality,Calculated 258 (275-295); Phosphorous 2.4 mg/dL (2.4-5.1); Potassium 3.3 mMol/L (3.4-5.1); Sodium 129 mMol/L (136-145); Total Protein 6.1 gm/dL (5.7-8.2); eGFR > 60 See Note
--- NOTE | 2025-01-08 07:48 | PD.SURPROG ---
Documentation for date of: 01/08/25 Subjective Subjective Narrative: Patient is seen and examined. He states that his pain is getting better, however he has persistently elevated WBC Exam Vital Signs Temp Pulse Resp BP Pulse Ox O2 Del Method O2 Flow Rate 98 F 112 H 18 138/78 H 95 Room Air 2 01/08/25 07:27 01/08/25 07:27 01/08/25 07:27 01/08/25 07:27 01/08/25 07:27 01/08/25 07:01/01/25 12:00 Constitutional Constitutional: no acute distress Routine Abdominal Exam Comments: Abdomen is soft but distended. He has tenderness to palpation throughout the abdomen, no rebound tenderness or peritonitis at this time Assessment & Plan Assessment Additional comments: Abdominal pain with persistent elevation of WBC. CT scan was obtained yesterday however reviewing the CT scan it appears to me the patient may have a large intra-abdominal abscess that was not mentioned by radiologist Plan Continue IV antibiotics belle will review CT scan with the radiologist for possible percutaneous drainage
[2025-01-08] MEDS: PANTOPRAZOLE 40 MG TABLET PO (08:11)
[2025-01-08] MEDS: LOSARTAN POTASSIUM 25 MG TABLET 50 MG PO (08:11)
[2025-01-08] MEDS: SODIUM CHLORIDE 0.9% 500 ML 500 ML 999 ML IV (09:23)
[2025-01-08] MEDS: POTASSIUM CHL 10 mEq IVPB 10 MEQ/100 ML BAG 100 MEQ IV ×4 (09:23→14:24)
--- NOTE | 2025-01-08 09:35 | ESPR_ITS ---
<Statement entered by Barrera Downing MD - 01/08/25 14:50> Patient is seen and examined at bedside. No acute overnight events. Patient is still complaining of right lower quadrant abdominal pain. Vitals are stable and noted to have tachycardia with heart rate around 110. On physical examination, noted to have severe tenderness in the right lower quadrant. Labs done this morning showed downtrending leukocytosis, 16.1, mild hyponatremia, 129, hypokalemia, 3.3. Repleted with potassium. The tachycardia might be due to due to the pain and inflammation in the abdomen with a component of dehydration. Patient was started on IV fluids, bolus of 500 mL is given followed by maintenance fluids, NS at 125 mL/h. NG tube was placed yesterday as patient is not able to take GoLytely and currently getting GoLytely prep through the NG tube. Nuclear Physics Professor, Dr. Oliveira is following and might do colonoscopy later in the day. Dr. Degroot is following the patient and recommended to continue IV antibiotics and also possible percutaneous drainage for suspected large intra- abdominal abscess. Consulted radiologist, Dr. Baker and he recommended that there is no abscess, might be phlegmon from the ongoing inflammation in the ileum and there is no need of drainage as of now. Will repeat CT abdomen pelvis with IV contrast if needed in the next 24 to 48 hours. Will continue cefoxitin, IV fluids and rest of his home medications. Stool studies done tested positive for white cells and negative for Campylobacter, E. coli Shiga toxin, Salmonella, Shigella. Pending stool calprotectin and Giardia # Terminal ileitis, infectious versus inflammatory-? 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 Jerome Downing, PGY2 Documentation for date of: 01/08/25 Subjective Subjective Interval history: Continues to report improvement in abdominal pain however on exam abdomen still appears to be distended. Continues to have multiple bowel movements overnight. Continue GoLytely prep via NG tube, clear liquid diet today, n.p.o. after midnight in anticipation of colonoscopy. Patient continues to be tachycardic, likely secondary to GoLytely prep and possibly dehydration, gave 500 cc NS bolus. Surgeon Dr Degroot was concerned for intra-abdominal abscess possibly on repeat CT A/P. After discussion with radiologist, will consider CTA A/P postcontrast in a couple of days if WBC uptrends (continues to be elevated but currently downtrending). Will restart PPN tomorrow if patient remains NPO. Exam Vital Signs Temp Pulse Resp BP Pulse Ox O2 Del Method O2 Flow Rate 98 F 112 H 18 138/78 H 95 Room Air 2 01/08/25 07:27 01/08/25 08:11 01/08/25 07:27 01/08/25 08:11 01/08/25 07:27 01/08/25 07:27 01/01/25 12:00 Narrative Exam Physical Exam General: Awake and in no acute distress. Conversational and non-toxic appearing. Lying comfortably in bed. HEENT: Normocephalic, atraumatic, mucous membranes moist. Heart: Regular rate and rhythm, normal S1 and S2, no murmurs. Lungs: Clear to auscultation with no wheezing or crackles. Abdomen: Soft, mildly distended, tenderness of right abdomen, positive bowel sounds. Neurologic: Alert and oriented x3, weakness in left half of the body (chronic). Extremities: No edema. Scabbed scratch estes on left lower extremity. Skin: No rash or ecchymoses Objective Labs 01/08/25 04:39 01/08/25 04:39 Labs: Laboratory Results - last 24 hr 01/08/25 04:39 WBC 16.1 H RBC 4.68 Hgb 12.0 L Hct 36.6 L MCV 78 L MCH 25.6 MCHC 32.8 RDW Std Deviation 40.5 Plt Count 331 Neut % (Auto) 82 H Lymph % (Auto) 10 Appling % (Auto) 7 Eos % (Auto) 0 Baso % (Auto) 0 Neut # (Auto) 13.2 H Lymph # (Auto) 1.6 Appling # (Auto) 1.1 H Eos # (Auto) 0.0 Baso # (Auto) 0.0 Immature Gran # (Auto) 0.12 H Absolute Nucleated RBC 0.00 Immature Gran % 1 H Nucleated RBC % 0 Sodium 129 L Potassium 3.3 L Chloride 96 L Carbon Dioxide 21.7 Anion Gap 11 BUN < 5 L Creatinine 0.5 L Estim Creat Clear Calc 177.2 eGFR > 60 BUN/Creatinine Ratio 10 L Glucose 130 H Calculated Osmolality 258 L Calcium 8.0 L Corrected Calcium 8.5 Phosphorus 2.4 Magnesium 1.9 Total Bilirubin 0.8 AST 17 ALT 25 Alkaline Phosphatase 194 H Total Protein 6.1 Albumin 3.4 L Globulin 2.7 Albumin/Globulin Ratio 1.3 Quality Measures Quality Measures none Assessment & Plan Assessment Current Active Medications: Generic Name Dose Route Start Last Admin Trade Name Freq PRN Reason Stop Dose Admin Acetaminophen 650 mg 12/31/24 17:05 Acetaminophen Supp 650 Mg Supp GA 01/27/25 10:14 Q6HR PRN Fever > 101 or pain 1-3 Amlodipine Besylate 10 mg 01/06/25 09:00 01/08/25 08:10 Amlodipine Besylate 5 Mg Tablet PO 02/05/25 08:59 10 mg QDAY GIOVANNI Administration Benzonatate 100 mg 01/06/25 14:40 Benzonatate 100 Mg Capsule PO 02/05/25 14:39 Q8HR PRN COUGH Protocol Dextrose 25 ml 12/26/24 15:36 Dextrose 50%-Water Inj 50 Ml Syringe IV 01/25/25 15:35 Q15MIN PRN BG 50-70 responsive npo pt Dextrose 50 ml 12/26/24 15:36 Dextrose 50%-Water Inj 50 Ml Syringe IV 01/25/25 15:35 Q15MIN PRN BG <50 OR BG <70 & pt unresponsive Glucagon 1 mg 12/26/24 15:36 Glucagon Inj 1 Mg Vial IM Q15MIN PRN BG <70, and no IV access Heparin Sodium (Porcine) 5,000 unit 12/26/24 15:30 01/08/25 05:25 Heparin Sod Inj 5000 Unit/Ml Vial SC 01/09/25 15:29 Not Given Q8HR GIOVANNI Hydromorphone HCl 1 mg 12/31/24 17:05 01/06/25 22:36 Hydromorphone Inj 2 Mg/Ml Vial IVP 01/08/25 17:04 1 mg Q6HR PRN Administration Pain 4-10 Cefoxitin Sodium 2 gm/ Sodium 50 mls @ 100 mls/hr 01/07/25 10:15 01/08/25 05:33 Chloride IV 01/14/25 10:14 100 mls/hr Q6HR GIOVANNI Administration Potassium Chloride 10 meq in 100 mls @ 100 mls/hr 01/08/25 08:24 01/08/25 09:23 Kcl Ivpb IV 01/08/25 12:23 100 mls/hr Q1H GIOVANNI Administration Sodium Chloride 1,000 mls @ 125 mls/hr 01/08/25 08:24 Ns IV 01/08/25 16:23 .Q8H ONE Insulin Degludec 36 unit 01/03/25 21:00 01/07/25 21:47 Insulin Degludec 5 Unit/0.05 Ml (Per 5 Units) SC 02/02/25 20:59 36 unit HS GIOVANNI Administration Insulin Human Lispro 0 unit 01/05/25 07:30 01/08/25 07:40 Insulin Lispro (Admelog) 1 Unit/0.01 Ml Unit SC 02/04/25 07:29 Not Given ACHS GIOVANNI Protocol Labetalol HCl 10 mg 12/29/24 07:57 Labetalol Inj 5 Mg/Ml Vial 20 Ml IVP 01/28/25 07:56 Q12HR PRN hypertension Levetiracetam 500 mg 01/06/25 21:00 01/08/25 08:12 Levetiracetam 250 Mg Tablet PO 02/05/25 20:59 500 mg Q12HR GIOVANNI Administration Losartan Potassium 50 mg 01/06/25 09:00 01/08/25 08:11 Losartan Potassium 25 Mg Tablet PO 02/05/25 08:59 50 mg QDAY GIOVANNI Administration Metoclopramide HCl 10 mg 01/03/25 10:05 01/08/25 05:32 Metoclopramide Inj 5 Mg/Ml Vial 2 Ml IVP 02/02/25 10:04 10 mg Q6HR GIOVANNI Administration Protocol Ondansetron HCl 4 mg 12/26/24 15:34 12/29/24 09:23 Ondansetron Inj 2 Mg/Ml Inj 2 Ml IVP 01/25/25 15:33 4 mg Q6HR PRN Administration NAUSEA OR VOMITING Protocol Pantoprazole Sodium 40 mg 01/07/25 09:00 01/08/25 08:11 Pantoprazole 40 Mg Tablet PO 02/06/25 08:59 40 mg QDAY GIOVANNI Administration Sennosides 1 tab 01/06/25 09:00 01/08/25 08:11 Senna Tablet PO 02/05/25 08:59 1 tab QDAY GIOVANNI Administration Protocol Plan Patient is a 54 year old male with PMH of 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 #Sepsis, resolved 05/28 #Terminal ileitis, infectious versus inflammatory #Leukocytosis, reactive versus infectious #HAGMA, resolved #Lactic acidosis, resolved On admission, meets 3/4 SIRS criteria: tachycardic HR 137, temp increased to 104F, WBC 18,000. Anion gap 18 and bicarb 19.8. Procalc elevated at 3.1. Admission lactic acid elevated 6.0 -> 5.5 with fluid bolus. Beta hydroxybutyrate mildly increased at 0.7 and glucose 366, low concern for DKA/HHS. Patient denies history of inflammatory bowel or autoimmune diseases, however patient is a poor historian. Patient denies blood in stool or diarrhea as of late. Denies recent sick contacts or usual food exposure. CT A/P 12/26 shows severe terminal ilietis and cystitis, no bowel obstruction observed. BCX 12/26: 04/27 bottles grew Staph epi, likely contaminant. Repeat BCx 12/30 negative. WBC 18.0 (admission) -> 18.6. CRP elevated at 31.6. Resolution of lactic acidosis and HAGMA w IV fluids. ANCA, anti-proteinase 3, anti myeloperoxidase all negative. Stool white cells 3+. Campylobacter, E. coli Shiga toxin, Salmonella, Shigella all negative. ESR and CRP are elevated. Lactic acid within normal limits. S/p IV Zosyn for SBP prophylaxis (12/26-12/31), followed by IV CFX 1g and IV metronidazole 500 mg BID (12/31-01/02). 01/06: Leukocytosis initially improving, uptrending again. Concern for intra- abdominal abscess per surgery. Plan: - Consulted GI Dr. Oliveira, appreciate recommendations: Clear liquid diet, NG tube for GoLytely, prep for colonoscopy, NPO after dinner -Will restart PPN -IV cefoxitin 2 mg (01/07? - Consider CTA A/P post contrast in a few days if WBC does not improve - Pending stool calprotectin, Giardia, Norovirus -Follow-up repeat BCx, negative for 24 hours #SBO, resolved #Hx chronic constipation #c/f SBO given history History of SBO, no surgeries or decompression done. Last bowel movement 4 days ago, reports only has bowel movements once a week. Able to pass gas. Had 1 episode of nonbilious nonblood emesis in ED. Last meal was breakfast day of admission. Endorsed lower abdominal pain, however has generalized tenderness. As above, CT A/P did not note obstruction, only terminal ilietis. Has extensive prn bowel regimen at rehab center (has been there since 06/2023 for residual left sided weakness from CVA). Consulted surgeon Dr. Degroot, not concerned for SBO, no need for surgical intervention at this time. Recommended consulting GI. Gastrografin 12/28 continued to show small bowel obstruction. XR abdomen 12/29 - 01/03 continue to show air-filled dilated small bowel. Gastrografin 01/03 showed contrast in colon, no obstruction results. Patient started passing bowel movements with IV Reglan 5 mg q6hr. Plan: - Consulted surgery Dr. Degroot, appreciate recommendations: Concern for possible intra-abdominal abscess, discussed with radiologist who recommends CTA A/P postcontrast in a couple of days - Pain regimen: Tylenol and IV dilaudid 1mg q6hr prn - Monitor BMP for refeeding syndrome, replete electrolytes as needed - IV protonix 40 mg - IV Zofran 4mg prn #Insulin dependent DM Takes insuline glargine 33 units and Novolog at rehab center. Last meal breakfast, currently NPO. UA 12/26 glucose 4+ with budding yeast, likely uncontrolled. SGLT-2 not on home medication list. Plan: - Insulin degludec 36 HS - SSI step 3 - CTM glucose and insulin requirements, will adjust accordingly #Hypertension Taking amlodipine 10 mg daily, clonidine 0.3 mg TID, and losartan 50 mg daily. BP 158/101 on admission, improved now to 122/64 after pain control. Plan: - Home dose losartan and amlodipine -Hold clonidine - IV labetalol 10 mg as needed if SBP greater than 180 - CTM BP #Pyuria #Hematuria #Cystitis UA 12/26 showed WBC 27, RBC 27; negative leukocyte esterase, nitrites, and bacteria. Budding yeast present. Previously grew Morganella morganii on urine culture 12/21/17. CT A/P 12/26/24 shows bladder wall thickening, with concern for cystitis. UCx positive for yeast. 04/27 BCx grew Staph epidermis, likely contaminant. Not complaining of urinary symptoms. Repeat BCx negative. Plan: - CTM urinary symptoms #Hx hemorrhagic CVA (2018) #Stroke prophylaxis Home med Keppra 1000mg BID. Patient has no history of seizures. Likely was started prophylactically after his stroke. Plan: - Keppra 500 mg twice daily injections Health Maintenance Disposition: Medsurg DVT prophylaxis: Heparin SQ GI prophylaxis: IV protonix 40 mg daily Bowel regimen: GoLytely Diet: Clear liquid diet, NPO after midnight CODE STATUS: FULL Patient plan of care was discussed with the resident, Dr. Downing, and the attending physician, Dr. Cano. Patience Mckinnon, PGY-1 Attending Provider Attestation/Addendum I attest that I was physically present for the evaluation, physical examination, lab and imaging review of the patient with the residents. I discussed the case with the residents and agree with the findings and plans of care as documented above. Patient seen and evaluated at bedside this morning. Continues to complain of abdominal pain, mostly around right lower quadrant. Continues to be tachycardic, slightly worse compared to yesterday. Continues to have tenderness around right lower quadrant, voluntary guarding. Bowel sounds are present through all quadrants. Continues to be on IV antibiotics, WBC is downtrending. CT abdomen/pelvis was completed which showed SBO pattern, possibly secondary to nonspecific colitis. General surgery recommended reviewing the CT scan with radiology regarding possibility of abscess. Discussed with radiology, stated low suspicion for intra-abdominal abscess, discussed with general surgery obtain, recommended follow-up CT abdomen pelvis in next 24-48 hours. Patient is receiving GoLytely preparation through NG tube, is planned for colonoscopy with GI today. Noted to have sodium of 129, potassium 3.3, patient received potassium repletion, we will start him on IV hydration as patient also has low oral intake. Stool studies have been negative so far, calprotectin level is pending. Blood cultures have been negative for more than 24 hours. Continues to be on insulin regimen for diabetes mellitus. Continues to be on losartan and amlodipine for hypertension and continues to be on home Keppra. Filiberto Cano MD
--- NOTE | 2025-01-08 09:45 | PC.SS ---
Follow up note: On IV antibiotic. Dr. Degroot and Dr. Oliveira following. Possible Colonoscopy. SS has informed Princess at [facility]. Per Princess at [facility], they will accept pt back upon dc.
[2025-01-08 10:47] LABS: INR 1.1 (0.9-1.3); Partial Thromboplastin Time 30.2 Seconds (22.0-36.0); Prothrombin Time 11.9 Seconds (9.0-12.2)
[2025-01-08] MEDS: SODIUM CHLORIDE 0.9% 1000 ML 1,000 ML 125 ML IV (10:58)
[2025-01-08] MEDS: HEPARIN SOD INJ 5000 UNIT/ML VIAL SC ×2 (13:48→21:15)
--- NOTE | 2025-01-08 18:57 | PC.NURSE ---
Pt taken for colonoscopy
--- NOTE | 2025-01-08 20:10 | PC.NURSE ---
Pt back from procedure
[2025-01-08] MEDS: INSULIN DEGLUDEC 5 UNIT/0.05 ML (PER 5 UNITS) 36 UNIT SC (21:15)
[2025-01-08] MEDS: INSULIN LISPRO (AdmeLOG) 1 UNIT/0.01 ML UNIT SC (21:16)
[2025-01-09] VITALS (11 sets, daily range): BP systolic 117–159; BP diastolic 70–96; PULSE 93–118; RESP 17–22; TEMP 36.6–37.1; O2SAT 94–96; BMI 30.4
[2025-01-09 05:39] LABS: Basophils # (Auto) 0.0 Thou/mm3 (0.0-0.2); Basophils % (Auto) 0 % (0-2.5); Eosinophils # (Auto) 0.0 Thou/mm3 (0.0-0.5); Eosinophils % (Auto) 0 % (0-10); Hematocrit 35.5 % (41.0-53.0); Hemoglobin 11.6 g/dL (13.5-16.0); Immature Granulocytes Auto 0.15 Thou/mm3 (0.00-0.00); Lymphocytes # (Auto) 1.4 Thou/mm3 (1.0-4.8); Lymphocytes % (Auto) 9 % (10-50); Mean Corpuscular HGB Conc 32.7 g/dl (31.0-37.0); Mean Corpuscular Hemoglobin 25.6 pg (25.0-35.0); Mean Corpuscular Volume 78 fL (80-100); Monocytes # (Auto) 1.1 Thou/mm3 (0.0-0.8); Monocytes % (Auto) 7 % (0-12); Neutrophils # (Auto) 13.2 Thou/mm3 (1.8-7.7); Neutrophils % (Auto) 83 % (37-80); Nucleated Red Blood Cell # 0.00 Thou/mm3 (0.00-0.00); Nucleated Red Blood Cell % 0 /100 WBC (0); Platelet Count 417 Thou/mm3 (140-440); RDW Standard Deviation 40.8 fL (35.1-43.9); Red Blood Count 4.54 Miln/mm3 (4.50-5.90); White Blood Count 15.8 Thou/mm3 (3.8-10.6)
[2025-01-09] MEDS: CEFOXITIN 2 GM in SODIUM CHLORIDE 0.9% (Popper) 50 ML IV ×3 (05:41→17:46)
[2025-01-09] MEDS: METOCLOPRAMIDE INJ 5 MG/ML VIAL 2 ML 10 MG IVP ×3 (05:42→17:46)
[2025-01-09] MEDS: HEPARIN SOD INJ 5000 UNIT/ML VIAL SC ×2 (05:42→14:46)
[2025-01-09 06:03] LABS: Alanine Aminotransferase 18 U/L (10-49); Albumin, Serum 3.3 gm/dL (3.5-5.0); Albumin/Globulin Ratio 1.1 (1.2-2.2); Alkaline Phosphatase 174 U/L (46-116); Anion Gap 11 (7-16); Aspartate Amino Transferase 12 U/L (0-34); BUN/Creatinine Ratio 10 Ratio (12-20); Bilirubin,Total 0.7 mg/dL (0.3-1.2); Blood Urea Nitrogen < 5 mg/dL (9-23); Calcium 8.1 mg/dL (8.3-10.6); Calcium (Corrected) 8.7 mg/dL (8.5-10.1); Carbon Dioxide 22.8 mMol/L (20.0-31.0); Chloride 97 mMol/L (98-107); Creatinine (Component) 0.5 mg/dL (0.6-1.3); Estimated Creatinine Clearance 152.7 mL/min (>60); Globulin 3.0 gm/dL (2.3-3.5); Glucose 125 mg/dL (74-106); Magnesium 2.0 mg/dL (1.6-2.6); Osmolality,Calculated 260 (275-295); Phosphorous 2.5 mg/dL (2.4-5.1); Potassium 3.0 mMol/L (3.4-5.1); Sodium 131 mMol/L (136-145); Total Protein 6.3 gm/dL (5.7-8.2); eGFR > 60 See Note
[2025-01-09] MEDS: PANTOPRAZOLE 40 MG TABLET PO (08:51)
[2025-01-09] MEDS: LOSARTAN POTASSIUM 25 MG TABLET 50 MG PO (08:53)
[2025-01-09] MEDS: SODIUM CHLORIDE 0.9% 1000 ML 1,000 ML 125 ML IV (08:56)
--- NOTE | 2025-01-09 09:28 | ESPR_ITS ---
<Statement entered by Barrera Downing MD - 01/09/25 16:05> Patient is seen and examined at bedside. No acute overnight events. Vitals are stable except for sinus tachycardia, heart rate around 105 to 115 bpm. Patient is still complaining of mild abdominal pain, predominantly in the right lower quadrant. Underwent colonoscopy yesterday by Dr. Oliveira and noted to have erythematous mucosa in the ascending colon, sigmoid colon and in the rectum which were biopsied. Ileal mucosa looks normal. Labs done this morning showed decreasing WBC count, hypokalemia hyponatremia. Potassium is repleted and patient was started on NS at 125 mL/h in view of her sinus tachycardia. General surgeon, Dr. Degroot is following the patient and recommended repeat CT abdomen pelvis with IV and oral contrast tomorrow in view of suspected inflammatory mass in the right lower abdomen. Will follow-up with the scan tomorrow # Sepsis, resolved # Suspected possible intra-abdominal abscess in the right abdomen # SBO resolved # Insulin-dependent diabetes mellitus # Hypokalemia # Hyponatremia # Hypochloremia I have personally seen and examined the patient, agree with residents assessment and plan Patient plan of care was discussed with the attending physician, Dr. Conrad Downing, PGY2 Documentation for date of: 01/09/25 Subjective Subjective Interval history: No acute overnight events. Had colonoscopy yesterday performed by Dr. Oliveira, noted erythematous mucosa of the ascending, sigmoid colon and rectal colon, however terminal ileal mucosa appeared normal. Biopsies taken of all sites mentioned above, will follow up pathology. Low suspicion for Crohn's disease at this time. Continues to have regular bowel movements and is passing gas. Pain improved but still has RLQ abdominal tenderness on exam. WBC still elevated (improving on IV cefoxitin) and persistent tachycardia (uncontrolled pain versus dehydration versus persistent infection). Given 1L NS bolus with no improvement in HR. Also given dilaudid 0.25 mg x1, will monitor HR. Repleted electrolytes accordingly. Plan for CT scan with IV and oral contrast per Dr. Degroot's and Dr. Mac's recommendation due to concern for inflammatory mass. Will continue on clear liqiuid diet today, advance as tolerated. Exam Vital Signs Temp Pulse Resp BP Pulse Ox O2 Del Method O2 Flow Rate 97.8 F 117 H 20 159/84 H 94 L Room Air 3 01/09/25 07:30 01/09/25 08:53 01/09/25 07:30 01/09/25 08:53 01/09/25 07:30 01/09/25 07:30 01/08/25 19:40 Narrative Exam Physical Exam General: Awake and in no acute distress. Conversational and non-toxic appearing. Lying comfortably in bed. HEENT: Normocephalic, atraumatic, mucous membranes moist. Heart: Regular rate and rhythm, normal S1 and S2, no murmurs. Lungs: Clear to auscultation with no wheezing or crackles. Abdomen: Soft, mildly distended, tenderness of right abdomen, positive bowel sounds. Neurologic: Alert and oriented x3, weakness in left half of the body (chronic). Extremities: No edema. Scabbed scratch estes on left lower extremity. Skin: No rash or ecchymoses Objective Labs 01/10/25 05:21 01/10/25 05:21 Labs: Laboratory Results - last 24 hr 01/08/25 01/09/25 10:07 04:53 WBC 15.8 H RBC 4.54 Hgb 11.6 L Hct 35.5 L MCV 78 L MCH 25.6 MCHC 32.7 RDW Std Deviation 40.8 Plt Count 417 D Neut % (Auto) 83 H Lymph % (Auto) 9 L [place] % (Auto) 7 Eos % (Auto) 0 Baso % (Auto) 0 Neut # (Auto) 13.2 H Lymph # (Auto) 1.4 [place] # (Auto) 1.1 H Eos # (Auto) 0.0 Baso # (Auto) 0.0 Immature Gran # (Auto) 0.15 H Absolute Nucleated RBC 0.00 Immature Gran % 1 H Nucleated RBC % 0 PT 11.9 INR 1.1 APTT 30.2 Sodium 131 L Potassium 3.0 L Chloride 97 L Carbon Dioxide 22.8 Anion Gap 11 BUN < 5 L Creatinine 0.5 L Estim Creat Clear Calc 152.7 eGFR > 60 BUN/Creatinine Ratio 10 L Glucose 125 H Calculated Osmolality 260 L Calcium 8.1 L Corrected Calcium 8.7 Phosphorus 2.5 Magnesium 2.0 Total Bilirubin 0.7 AST 12 ALT 18 Alkaline Phosphatase 174 H D Total Protein 6.3 Albumin 3.3 L Globulin 3.0 Albumin/Globulin Ratio 1.1 L Quality Measures Quality Measures none Assessment & Plan Assessment Current Active Medications: Generic Name Dose Route Start Last Admin Trade Name Freq PRN Reason Stop Dose Admin Acetaminophen 650 mg 12/31/24 17:05 Acetaminophen Supp 650 Mg Supp AK 01/27/25 10:14 Q6HR PRN Fever > 101 or pain 1-3 Amlodipine Besylate 10 mg 01/06/25 09:00 01/09/25 08:53 Amlodipine Besylate 5 Mg Tablet PO 02/05/25 08:59 10 mg QDAY GIOVANNI Administration Benzonatate 100 mg 01/06/25 14:40 Benzonatate 100 Mg Capsule PO 02/05/25 14:39 Q8HR PRN COUGH Protocol Dextrose 25 ml 12/26/24 15:36 Dextrose 50%-Water Inj 50 Ml Syringe IV 01/25/25 15:35 Q15MIN PRN BG 50-70 responsive npo pt Dextrose 50 ml 12/26/24 15:36 Dextrose 50%-Water Inj 50 Ml Syringe IV 01/25/25 15:35 Q15MIN PRN BG <50 OR BG <70 & pt unresponsive Glucagon 1 mg 12/26/24 15:36 Glucagon Inj 1 Mg Vial IM Q15MIN PRN BG <70, and no IV access Heparin Sodium (Porcine) 5,000 unit 12/26/24 15:30 01/09/25 05:42 Heparin Sod Inj 5000 Unit/Ml Vial SC 01/09/25 15:29 5,000 unit Q8HR GIOVANNI Administration Cefoxitin Sodium 2 gm/ Sodium 50 mls @ 100 mls/hr 01/07/25 10:15 01/09/25 05:41 Chloride IV 01/14/25 10:14 100 mls/hr Q6HR GIOVANNI Administration Sodium Chloride 1,000 mls @ 125 mls/hr 01/09/25 07:54 01/09/25 08:56 Ns IV 01/09/25 15:53 125 mls/hr .Q8H ONE Administration Insulin Degludec 36 unit 01/03/25 21:00 01/08/25 21:15 Insulin Degludec 5 Unit/0.05 Ml (Per 5 Units) SC 02/02/25 20:59 36 unit HS GIOVANNI Administration Insulin Human Lispro 0 unit 01/05/25 07:30 01/09/25 07:33 Insulin Lispro (Admelog) 1 Unit/0.01 Ml Unit SC 02/04/25 07:29 Not Given ACHS GIOVANNI Protocol Labetalol HCl 10 mg 12/29/24 07:57 Labetalol Inj 5 Mg/Ml Vial 20 Ml IVP 01/28/25 07:56 Q12HR PRN hypertension Levetiracetam 500 mg 01/06/25 21:00 01/09/25 08:52 Levetiracetam 250 Mg Tablet PO 02/05/25 20:59 500 mg Q12HR GIOVANNI Administration Losartan Potassium 50 mg 01/06/25 09:00 01/09/25 08:53 Losartan Potassium 25 Mg Tablet PO 02/05/25 08:59 50 mg QDAY GIOVANNI Administration Metoclopramide HCl 10 mg 01/03/25 10:05 01/09/25 05:42 Metoclopramide Inj 5 Mg/Ml Vial 2 Ml IVP 02/02/25 10:04 10 mg Q6HR GIOVANNI Administration Protocol Ondansetron HCl 4 mg 12/26/24 15:34 12/29/24 09:23 Ondansetron Inj 2 Mg/Ml Inj 2 Ml IVP 01/25/25 15:33 4 mg Q6HR PRN Administration NAUSEA OR VOMITING Protocol Pantoprazole Sodium 40 mg 01/07/25 09:00 01/09/25 08:51 Pantoprazole 40 Mg Tablet PO 02/06/25 08:59 40 mg QDAY GIOVANNI Administration Potassium Chloride 40 meq 01/09/25 11:00 Potassium Chloride 20 Meq Tabcr PO 01/09/25 11:01 X1 ONE Sennosides 1 tab 01/06/25 09:00 01/09/25 08:51 Senna Tablet PO 02/05/25 08:59 1 tab QDAY GIOVANNI Administration Protocol Plan Patient is a 54 year old male with PMH of 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 #Sepsis, resolved 05/28 #Terminal ileitis, infectious versus inflammatory #c/f intra-abdominal abscess #Leukocytosis, reactive versus infectious, improving #HAGMA, resolved #Lactic acidosis, resolved On admission, met 3/4 SIRS criteria: tachycardic HR 137, temp 104F, WBC 18,000. Anion gap 18 and bicarb 19.8. Procalc elevated at 3.1. Lactic acid elevated 6.0 -> 5.5 s/p fluid bolus. BHB 0.7 and glucose 366, low concern for DKA/HHS. Patient denies history of inflammatory bowel or autoimmune diseases but is poor historian. Denies blood in stool or diarrhea. Denies recent sick contacts or usual food exposure. CT A/P 12/26 shows severe terminal ilietis and cystitis, no bowel obstruction observed. BCX 12/26: 04/27 bottles grew Staph epidermis, likely contaminant. Repeat BCx 12/30 and 01/06 negative. WBC 18.0 (admission) -> 18.6. CRP elevated at 31.6. Resolution of lactic acidosis and HAGMA w IV fluids. ANCA, anti-proteinase 3, anti myeloperoxidase all negative. Stool white cells 3+. Infectious stool panel negative. S/p IV Zosyn for SBP prophylaxis (12/26-12/31), followed by IV CFX 1g and IV metronidazole 500 mg BID (12/31-01/02). Plan: - Consulted GI Dr. Oliveira: s/p colonoscopy, pending pathology, advance diet as tolerated - Consulted surgeon Dr. Degroot: CT A/P with oral and IV contrast tomorrow to rule out intra-abdominal abscess - IV cefoxitin 2 mg (01/07? - Pending stool calprotectin, Giardia, Norovirus #SBO, resolved #Hx chronic constipation #Hx SBO History of SBO, no surgeries or decompression done. Last bowel movement 4 days ago, reports only has bowel movements once a week. Able to pass gas. Had 1 episode of nonbilious nonblood emesis in ED. Last meal was breakfast day of admission. Endorsed lower abdominal pain, however has generalized tenderness. As above, CT A/P did not note obstruction, only terminal ilietis. Has extensive prn bowel regimen at rehab center (has been there since 06/2023 for residual left sided weakness from CVA). Consulted surgeon Dr. Degroot, not concerned for SBO, no need for surgical intervention on admission. Recommended consulting GI. Gastrografin 12/28 continued to show small bowel obstruction. XR abdomen 12/29 - 01/03 continue to show air-filled dilated small bowel. Gastrografin 01/03 showed contrast in colon, no obstruction results. Patient started passing bowel movements with IV Reglan 5 mg q6hr. Plan: - Consulted surgery Dr. Degroot, appreciate recommendations - Consulted GI Dr. Oliveira, appreciate recommendations - Pain regimen: Tylenol and IV dilaudid 1mg q6hr prn - Monitor BMP for refeeding syndrome, replete electrolytes as needed - IV protonix 40 mg - IV Zofran 4mg prn #Insulin dependent DM Takes insuline glargine 33 units and Novolog at rehab center. Last meal breakfast, currently NPO. UA 12/26 glucose 4+ with budding yeast, likely uncontrolled. SGLT-2 not on home medication list. Plan: - Insulin degludec 36 HS - SSI step 3 - CTM glucose and insulin requirements, will adjust accordingly #Hypertension Taking amlodipine 10 mg daily, clonidine 0.3 mg TID, and losartan 50 mg daily. BP 158/101 on admission, improved now to 122/64 after pain control. Plan: - Home dose losartan and amlodipine - Hold home dose clonidine - IV labetalol 10 mg as needed if SBP greater than 180 - CTM BP #Hypokalemia #Hyponatremia #Hypochloridemia Secondary to prolonged NPO during SBO work up. Started on PPN 12/29-01/03, discontinued as patient is now tolerating oral diet. - Replete as needed - S/p 1L NS bolus #Pyuria #Hematuria #Cystitis UA 12/26 showed WBC 27, RBC 27; negative leukocyte esterase, nitrites, and bacteria. Budding yeast present. Previously grew Morganella morganii on urine culture 12/21/17. CT A/P 12/26/24 shows bladder wall thickening, with concern for cystitis. UCx positive for yeast. 04/27 BCx grew Staph epidermis, likely contaminant. Not complaining of urinary symptoms. Repeat BCx negative. Plan: - CTM urinary symptoms #Hx hemorrhagic CVA (2018) #Stroke prophylaxis Home med Keppra 1000mg BID. Patient has no history of seizures. Likely was started prophylactically after his stroke. Plan: - Keppra 500 mg twice daily injections Health Maintenance Disposition: Medsurg DVT prophylaxis: Heparin SQ GI prophylaxis: IV protonix 40 mg daily Bowel regimen: GoLytely Diet: Clear liquid diet, NPO after midnight CODE STATUS: FULL Patient plan of care was discussed with the resident, Dr. Downing, and the attending physician, Dr. Martines. Patience Mckinnon, PGY-1 Attending Provider Attestation/Addendum I have examined the patient, reviewed labs and imaging findings, discussed the case with the resident(s), and reviewed entered orders. I agree with the plan of care as outlined in this note. Dr. Conrad MD
[2025-01-09] MEDS: INSULIN LISPRO (AdmeLOG) 1 UNIT/0.01 ML UNIT SC ×2 (11:29→21:34)
--- NOTE | 2025-01-09 11:37 | PD.SURPROG ---
Documentation for date of: 01/09/25 Subjective Subjective Narrative: Patient is seen and examined. He underwent colonoscopy with biopsy yesterday. He continues to have bowel movements and tolerating diet Exam Vital Signs Temp Pulse Resp BP Pulse Ox O2 Del Method O2 Flow Rate 97.8 F 117 H 20 159/84 H 94 L Room Air 3 01/09/25 07:30 01/09/25 08:53 01/09/25 07:30 01/09/25 08:53 01/09/25 07:30 01/09/25 07:30 01/08/25 19:40 Constitutional Constitutional: no acute distress Routine Abdominal Exam Comments: Abdomen is soft but distended. He has tenderness to deep palpation, no diffuse peritonitis at this time Assessment & Plan Assessment Additional comments: CT scan reviewed with Dr. Baker yesterday who believes that patient has a large inflammatory mass and recommended repeating CT scan with IV and oral contrast Plan Continue IV antibiotics. Repeat CT scan of abdomen and pelvis with IV and oral contrast tomorrow
[2025-01-09] MEDS: CALCIUM ACETATE 667 MG TABLET PO (16:25)
--- NOTE | 2025-01-09 16:28 | ESPR_ITS ---
Documentation for date of: 01/09/25 Subjective Subjective Interval history: Colonoscopy yesterday with intubation terminal ileum showed her to be normal terminal ileum at least the distal 10 to 20 cm biopsies were indeed taken Exam Vital Signs Temp Pulse Resp BP Pulse Ox O2 Del Method O2 Flow Rate 97.8 F 108 H 18 143/80 H 96 Room Air 3 01/09/25 15:35 01/09/25 15:35 01/09/25 15:35 01/09/25 15:35 01/09/25 15:35 01/09/25 15:35 01/08/25 19:40 Objective Labs 01/09/25 04:53 01/09/25 04:53 Labs: Laboratory Results - last 24 hr 01/09/25 04:53 WBC 15.8 H RBC 4.54 Hgb 11.6 L Hct 35.5 L MCV 78 L MCH 25.6 MCHC 32.7 RDW Std Deviation 40.8 Plt Count 417 D Neut % (Auto) 83 H Lymph % (Auto) 9 L [place] % (Auto) 7 Eos % (Auto) 0 Baso % (Auto) 0 Neut # (Auto) 13.2 H Lymph # (Auto) 1.4 [place] # (Auto) 1.1 H Eos # (Auto) 0.0 Baso # (Auto) 0.0 Immature Gran # (Auto) 0.15 H Absolute Nucleated RBC 0.00 Immature Gran % 1 H Nucleated RBC % 0 Sodium 131 L Potassium 3.0 L Chloride 97 L Carbon Dioxide 22.8 Anion Gap 11 BUN < 5 L Creatinine 0.5 L Estim Creat Clear Calc 152.7 eGFR > 60 BUN/Creatinine Ratio 10 L Glucose 125 H Calculated Osmolality 260 L Calcium 8.1 L Corrected Calcium 8.7 Phosphorus 2.5 Magnesium 2.0 Total Bilirubin 0.7 AST 12 ALT 18 Alkaline Phosphatase 174 H D Total Protein 6.3 Albumin 3.3 L Globulin 3.0 Albumin/Globulin Ratio 1.1 L Impressions Impression: Normal-appearing distal terminal ileum on colonoscopy Patient having bowel movements Continue current management Assessment & Plan A&P Narrative # Abnormal CT scan of the abdomen pelvis showing inflammation seen this terminal ileum with increased stool burden Differential diagnosis in the setting of regional ileitis is inflammatory versus infectious Because of the large stool burden: Needs to be flushed out Plan KUB GoLytely flush If patient starts vomiting with the GoLytely insert NGT to intermittent [place] suction Will follow the patient ANCA antibody CRP Other medical problems include Hemorrhagic CVA with left-sided motor weakness Seizure disorder Essential hypertension Diabetes mellitus type 2 Thank you very much for the opportunity to participate in the care of this patient Time Spent With Patient Time: Total time spent is greater than 50% in coordination of care (as documented) at patient's floor/unit and/or counseling patient:
[2025-01-09] MEDS: HYDROmorphone INJ 2 MG/ML VIAL 0.25 MG IVP (16:37)
[2025-01-09] MEDS: INSULIN DEGLUDEC 5 UNIT/0.05 ML (PER 5 UNITS) 36 UNIT SC (21:33)
[2025-01-10] VITALS (7 sets, daily range): BP systolic 113–139; BP diastolic 69–84; PULSE 104–110; RESP 16–18; TEMP 36.4–36.9; O2SAT 93–96; BMI 30.2
[2025-01-10] MEDS: METOCLOPRAMIDE INJ 5 MG/ML VIAL 2 ML 10 MG IVP ×4 (00:35→17:46)
[2025-01-10] MEDS: CEFOXITIN 2 GM in SODIUM CHLORIDE 0.9% (Popper) 50 ML IV ×4 (00:35→17:45)
[2025-01-10 06:09] LABS: Basophils # (Auto) 0.0 Thou/mm3 (0.0-0.2); Basophils % (Auto) 0 % (0-2.5); Eosinophils # (Auto) 0.0 Thou/mm3 (0.0-0.5); Eosinophils % (Auto) 0 % (0-10); Hematocrit 33.0 % (41.0-53.0); Hemoglobin 10.9 g/dL (13.5-16.0); Immature Granulocytes Auto 0.10 Thou/mm3 (0.00-0.00); Lymphocytes # (Auto) 1.5 Thou/mm3 (1.0-4.8); Lymphocytes % (Auto) 16 % (10-50); Mean Corpuscular HGB Conc 33.0 g/dl (31.0-37.0); Mean Corpuscular Hemoglobin 26.0 pg (25.0-35.0); Mean Corpuscular Volume 79 fL (80-100); Monocytes # (Auto) 1.0 Thou/mm3 (0.0-0.8); Monocytes % (Auto) 10 % (0-12); Neutrophils # (Auto) 6.8 Thou/mm3 (1.8-7.7); Neutrophils % (Auto) 72 % (37-80); Nucleated Red Blood Cell # 0.00 Thou/mm3 (0.00-0.00); Nucleated Red Blood Cell % 0 /100 WBC (0); Platelet Count 431 Thou/mm3 (140-440); RDW Standard Deviation 42.0 fL (35.1-43.9); Red Blood Count 4.19 Miln/mm3 (4.50-5.90); White Blood Count 9.4 Thou/mm3 (3.8-10.6)
[2025-01-10 06:27] LABS: Calprotectin, Stool* 1370 mcg/g
[2025-01-10 06:35] LABS: Alanine Aminotransferase 14 U/L (10-49); Albumin, Serum 3.1 gm/dL (3.5-5.0); Albumin/Globulin Ratio 1.2 (1.2-2.2); Alkaline Phosphatase 162 U/L (46-116); Anion Gap 11 (7-16); Aspartate Amino Transferase 12 U/L (0-34); BUN/Creatinine Ratio 10 Ratio (12-20); Bilirubin,Total 0.6 mg/dL (0.3-1.2); Blood Urea Nitrogen < 5 mg/dL (9-23); Calcium 8.0 mg/dL (8.3-10.6); Calcium (Corrected) 8.7 mg/dL (8.5-10.1); Carbon Dioxide 22.2 mMol/L (20.0-31.0); Chloride 100 mMol/L (98-107); Creatinine (Component) 0.5 mg/dL (0.6-1.3); Estimated Creatinine Clearance 150.4 mL/min (>60); Globulin 2.6 gm/dL (2.3-3.5); Glucose 102 mg/dL (74-106); Magnesium 1.8 mg/dL (1.6-2.6); Osmolality,Calculated 263 (275-295); Phosphorous 2.5 mg/dL (2.4-5.1); Potassium 3.5 mMol/L (3.4-5.1); Sodium 133 mMol/L (136-145); Total Protein 5.7 gm/dL (5.7-8.2); eGFR > 60 See Note
[2025-01-10] MEDS: LOSARTAN POTASSIUM 25 MG TABLET 50 MG PO (08:39)
[2025-01-10] MEDS: PANTOPRAZOLE 40 MG TABLET PO (08:39)
--- NOTE | 2025-01-10 09:00 | XR_ITS ---
Examination: CT abdomen with intravenous contrast CT pelvis with intravenous contrast 2-D coronal reconstructions 2-D sagittal reconstructions Date and time of exam:January 10, 2025 0918 hours, comparison 01/07/2025 INDICATIONS: Abdominal pain this week. CTDI: vol (mGy) 11.9 DLP: (mGycm) 792 Technique: Multiple axial sections of the abdomen and pelvis have been obtained. 64 slice high-resolution scanner used. 3 mm axial sections have been obtained, post intravenous injection 60 cc [id number] 2-D sagittal, coronal reconstructions obtained. Low dose protocols were performed. One or more of the following dose reduction techniques were used; automated exposure control, adjustment of the mA and/or KV according to patient size, use of iterative reconstruction technique. Findings: No focal liver or splenic lesion Absent gallbladder No pancreatic or adrenal mass No hydronephrosis Fluid-filled collection in the right lower abdomen consistent with abscess, which actually measures smaller compared to prior study, 3 cm in thickness This is surrounded by bowel loops and not amenable to CT-guided catheter drainage Colonic ileus Bladder intact IMPRESSION: Smaller fluid-filled collection in the right lower abdomen consistent with abscess This is not amenable to CT-guided catheter drainage, as bowel loops surrounding this fluid collection
--- NOTE | 2025-01-10 10:52 | ESPR_ITS ---
<Statement entered by Barrera Downing MD - 01/10/25 15:20> Patient is seen and examined at bedside. No acute overnight events. Still complaining of mild intermittent pain in the right lower quadrant. Vitals are stable except for mild tachycardia with a heart rate in the low 100s. On physical examination, noted mild abdominal tenderness in the right lower quadrant. Labs done this morning showed WBC within normal limits, 9.4, potassium 3.5. CT abdomen/pelvis with IV contrast is repeated today and noted to have smaller fluid filled collection in the right lower abdomen consistent with abscess but not amenable to CT-guided catheter drainage. General surgeon, Dr. Degroot is following the patient and recommended treatment with oral antibiotics and discharged home with 10-day course of oral antibiotics. # Sepsis, resolved # Intra-abdominal abscess in the right abdomen # SBO resolved # Insulin-dependent diabetes mellitus # Hypokalemia # Hyponatremia # Hypochloremia I have personally seen and examined the patient, agree with residents assessment and plan Patient plan of care was discussed with the attending physician, Dr. Conrad Downing, PGY2 Documentation for date of: 01/10/25 Subjective Subjective Interval history: No acute events overnight. Continues to endorse regular bowel movements and improvement in abdominal pain. Patient continues to be tachycardic, likely secondary to pain. Pain regimen prn and notified patient that he can ask for medications. Complained today of new onset dysuria, will start on fluconazole for yeast infection. WBC improved. Repeat CT A/P with contrast showed 3cm right lower abdomen abscess, smaller compared to prior studies. However due to size not amendable to CT guided catheter drainage. Per surgery, cleared patient for discharge and recommend 10 day course of oral antibiotics. Will continue IV cefoxitin and continue to advance diet. Exam Vital Signs Temp Pulse Resp BP Pulse Ox O2 Del Method O2 Flow Rate 97.6 F 104 H 17 117/74 93 L Room Air 3 01/10/25 08:00 01/10/25 08:39 01/10/25 08:00 01/10/25 08:39 01/10/25 08:00 01/10/25 08:00 01/08/25 19:40 Narrative Exam Physical Exam General: Awake and in no acute distress. Conversational and non-toxic appearing. Lying comfortably in bed. HEENT: Normocephalic, atraumatic, mucous membranes moist. Heart: Regular rate and rhythm, normal S1 and S2, no murmurs. Lungs: Clear to auscultation with no wheezing or crackles. Abdomen: Soft, mildly distended, tenderness of right abdomen, positive bowel sounds. Neurologic: Alert and oriented x3, weakness in left half of the body (chronic). Extremities: No edema. Scabbed scratch estes on left lower extremity. Skin: No rash or ecchymoses Objective Labs 01/11/25 04:49 01/11/25 04:49 Labs: Laboratory Results - last 24 hr 01/02/25 01/10/25 16:59 05:21 WBC 9.4 D RBC 4.19 L Hgb 10.9 L Hct 33.0 L MCV 79 L MCH 26.0 MCHC 33.0 RDW Std Deviation 42.0 Plt Count 431 Neut % (Auto) 72 Lymph % (Auto) 16 [place] % (Auto) 10 Eos % (Auto) 0 Baso % (Auto) 0 Neut # (Auto) 6.8 Lymph # (Auto) 1.5 [place] # (Auto) 1.0 H Eos # (Auto) 0.0 Baso # (Auto) 0.0 Immature Gran # (Auto) 0.10 H Absolute Nucleated RBC 0.00 Immature Gran % 1 H Nucleated RBC % 0 Sodium 133 L Potassium 3.5 D Chloride 100 Carbon Dioxide 22.2 Anion Gap 11 BUN < 5 L Creatinine 0.5 L Estim Creat Clear Calc 150.4 eGFR > 60 BUN/Creatinine Ratio 10 L Glucose 102 Calculated Osmolality 263 L Calcium 8.0 L Corrected Calcium 8.7 Phosphorus 2.5 Magnesium 1.8 Total Bilirubin 0.6 AST 12 ALT 14 Alkaline Phosphatase 162 H Total Protein 5.7 Albumin 3.1 L Globulin 2.6 Albumin/Globulin Ratio 1.2 Stool Calprotectin 1370 H Quality Measures Quality Measures none Assessment & Plan Assessment Current Active Medications: Generic Name Dose Route Start Last Admin Trade Name Freq PRN Reason Stop Dose Admin Acetaminophen 650 mg 01/10/25 08:18 Acetaminophen 325 Mg Tablet PO 02/09/25 08:17 Q6HR PRN Fever >101 or pain 1-3 Amlodipine Besylate 10 mg 01/06/25 09:00 01/10/25 08:39 Amlodipine Besylate 5 Mg Tablet PO 02/05/25 08:59 10 mg QDAY GIOVANNI Administration Benzonatate 100 mg 01/06/25 14:40 Benzonatate 100 Mg Capsule PO 02/05/25 14:39 Q8HR PRN COUGH Protocol Dextrose 25 ml 12/26/24 15:36 Dextrose 50%-Water Inj 50 Ml Syringe IV 01/25/25 15:35 Q15MIN PRN BG 50-70 responsive npo pt Dextrose 50 ml 12/26/24 15:36 Dextrose 50%-Water Inj 50 Ml Syringe IV 01/25/25 15:35 Q15MIN PRN BG <50 OR BG <70 & pt unresponsive Glucagon 1 mg 12/26/24 15:36 Glucagon Inj 1 Mg Vial IM Q15MIN PRN BG <70, and no IV access Hydromorphone HCl 0.25 mg 01/10/25 08:20 Hydromorphone Inj 2 Mg/Ml Vial IVP 01/14/25 15:08 Q6HR PRN PAIN SCALE 4-6 (Moderate Hydromorphone HCl 0.5 mg 01/10/25 08:20 Hydromorphone Inj 2 Mg/Ml Vial IVP 01/15/25 08:19 Q6HR PRN Pain 7-10 Cefoxitin Sodium 2 gm/ Sodium 50 mls @ 100 mls/hr 01/07/25 10:15 01/10/25 05:23 Chloride IV 01/14/25 10:14 100 mls/hr Q6HR GIOVANNI Administration Insulin Degludec 36 unit 01/03/25 21:00 01/09/25 21:33 Insulin Degludec 5 Unit/0.05 Ml (Per 5 Units) SC 02/02/25 20:59 36 unit HS GIOVANNI Administration Insulin Human Lispro 0 unit 01/05/25 07:30 01/10/25 08:06 Insulin Lispro (Admelog) 1 Unit/0.01 Ml Unit SC 02/04/25 07:29 Not Given ACHS [facility] Protocol Labetalol HCl 10 mg 12/29/24 07:57 Labetalol Inj 5 Mg/Ml Vial 20 Ml IVP 01/28/25 07:56 Q12HR PRN hypertension Levetiracetam 500 mg 01/06/25 21:00 01/10/25 08:39 Levetiracetam 250 Mg Tablet PO 02/05/25 20:59 500 mg Q12HR GIOVANNI Administration Losartan Potassium 50 mg 01/06/25 09:00 01/10/25 08:39 Losartan Potassium 25 Mg Tablet PO 02/05/25 08:59 50 mg QDAY GIOVANNI Administration Metoclopramide HCl 10 mg 01/03/25 10:05 01/10/25 05:23 Metoclopramide Inj 5 Mg/Ml Vial 2 Ml IVP 02/02/25 10:04 10 mg Q6HR GIOVANNI Administration Protocol Ondansetron HCl 4 mg 12/26/24 15:34 12/29/24 09:23 Ondansetron Inj 2 Mg/Ml Inj 2 Ml IVP 01/25/25 15:33 4 mg Q6HR PRN Administration NAUSEA OR VOMITING Protocol Pantoprazole Sodium 40 mg 01/07/25 09:00 01/10/25 08:39 Pantoprazole 40 Mg Tablet PO 02/06/25 08:59 40 mg QDAY GIOVANNI Administration Sennosides 1 tab 01/06/25 09:00 01/10/25 08:40 Senna Tablet PO 02/05/25 08:59 1 tab QDAY GIOVANNI Administration Protocol Plan Patient is a 54 year old male with PMH of 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 #Sepsis, resolved 05/28 #Terminal ileitis, infectious versus inflammatory #c/f intra-abdominal abscess #Leukocytosis, reactive versus infectious, improving #HAGMA, resolved #Lactic acidosis, resolved On admission, met 3/4 SIRS criteria: tachycardic HR 137, temp 104F, WBC 18,000. Anion gap 18 and bicarb 19.8. Procalc elevated at 3.1. Lactic acid elevated 6.0 -> 5.5 s/p fluid bolus. BHB 0.7 and glucose 366, low concern for DKA/HHS. Patient denies history of inflammatory bowel or autoimmune diseases but is poor historian. Denies blood in stool or diarrhea. Denies recent sick contacts or usual food exposure. CT A/P 12/26 shows severe terminal ilietis and cystitis, no bowel obstruction observed. BCX 12/26: 1 bottles grew Staph epidermis, likely contaminant. Repeat BCx 12/30 and 01/06 negative. WBC 18.0 (admission) -> 18.6. CRP elevated at 31.6. Resolution of lactic acidosis and HAGMA w IV fluids. ANCA, anti-proteinase 3, anti myeloperoxidase all negative. Stool white cells 3+. Infectious stool panel negative. S/p IV Zosyn for SBP prophylaxis (12/26-12/31), followed by IV CFX 1g and IV metronidazole 500 mg BID (12/31-01/02). Plan: - Consulted GI Dr. Oliveira: s/p colonoscopy, pending pathology, advance diet as tolerated - Consulted surgeon Dr. Degroot: repeat CT A/P showed 3 cm RLQ abscess decreasing in size, not candidate for drainage, treat with 10 day oral abx course - IV cefoxitin 2 mg (01/07? - Pending stool calprotectin, Giardia, Norovirus #SBO, resolved #Hx chronic constipation #Hx SBO History of SBO, no surgeries or decompression done. Last bowel movement 4 days ago, reports only has bowel movements once a week. Able to pass gas. Had 1 episode of nonbilious nonblood emesis in ED. Last meal was breakfast day of admission. Endorsed lower abdominal pain, however has generalized tenderness. As above, CT A/P did not note obstruction, only terminal ilietis. Has extensive prn bowel regimen at rehab center (has been there since 06/2023 for residual left sided weakness from CVA). Consulted surgeon Dr. Degroot, not concerned for SBO, no need for surgical intervention on admission. Recommended consulting GI. Gastrografin 12/28 continued to show small bowel obstruction. XR abdomen 12/29 - 01/03 continue to show air-filled dilated small bowel. Gastrografin 01/03 showed contrast in colon, no obstruction results. Patient started passing bowel movements with IV Reglan 5 mg q6hr. Plan: - Consulted surgery Dr. Degroot, appreciate recommendations - Consulted GI Dr. Oliveira, appreciate recommendations - Pain regimen: Tylenol and IV dilaudid 1mg q6hr prn - Monitor BMP for refeeding syndrome, replete electrolytes as needed - IV protonix 40 mg - IV Zofran 4mg prn #Insulin dependent DM Takes insuline glargine 33 units and Novolog at rehab center. Last meal breakfast, currently NPO. UA 12/26 glucose 4+ with budding yeast, likely uncontrolled. SGLT-2 not on home medication list. Plan: - Insulin degludec 36 HS - SSI step 3 - CTM glucose and insulin requirements, will adjust accordingly #Kaila albicans urinary infection #Cystitis, resolved UA 12/26 showed WBC 27, RBC 27; negative leukocyte esterase, nitrites, and bacteria. Budding yeast present. Previously grew Morganella morganii on urine culture 12/21/17. CT A/P 12/26/24 shows bladder wall thickening, with concern for cystitis. Repeat abdominal imaging negative for cystitis. UCx positive for yeast, likely secondary to glucose in urine from uncontrolled diabetes. No urinary symptoms on admission. Plan: - Fluconazole 200 mg daily (01/10- - CTM urinary symptoms #Hypertension Taking amlodipine 10 mg daily, clonidine 0.3 mg TID, and losartan 50 mg daily. BP 158/101 on admission, improved now to 122/64 after pain control. Plan: - Home dose losartan and amlodipine - Hold home dose clonidine - IV labetalol 10 mg as needed if SBP greater than 180 - CTM BP #Hypokalemia #Hyponatremia #Hypochloridemia Secondary to prolonged NPO during SBO work up. Started on PPN 12/29-01/03, discontinued as patient is now tolerating oral diet. - Replete as needed - S/p 1L NS bolus #Hx hemorrhagic CVA (2018) #Stroke prophylaxis Home med Keppra 1000mg BID. Patient has no history of seizures. Likely was started prophylactically after his stroke. Plan: - Keppra 500 mg twice daily injections Health Maintenance Disposition: Medsurg DVT prophylaxis: Heparin SQ GI prophylaxis: IV protonix 40 mg daily Bowel regimen: GoLytely Diet: Clear liquid diet, NPO after midnight CODE STATUS: FULL Patient plan of care was discussed with the resident, Dr. Downing, and the attending physician, Dr. Martines. Patience Mckinnon, PGY-1 Attending Provider Attestation/Addendum I have examined the patient, reviewed labs and imaging findings, discussed the case with the resident(s), and reviewed entered orders. I agree with the plan of care as outlined in this note, with these additional summaries/recommendations: Patient seen at bedside. No acute overnight events. He is endorsing mild to moderate abdominal pain today. Patient encouraged to use as needed pain regimen. Repeat CT of abdomen and pelvis with IV plus oral contrast revealed intra-abdominal abscess approximately 3 cm in size. Per interventional radiology this abscess is not amendable to CT-guided catheter drainage. We will follow-up with in-house general surgery. Continue IV antibiotics. Blood cultures show no growth to date. Previous urine culture grew Kaila albicans and start fluconazole. Patient is tolerating diet. Continue basal and bolus insulin for diabetes mellitus type 2. Target blood sugar of 140-180 while hospitalized. Continue home antihypertensives. Patient updated on the plan and in agreement. All questions answered to satisfaction. Please see residents note for additional details and management. Dr. Conrad MD
--- NOTE | 2025-01-10 12:16 | PD.SURPROG ---
Documentation for date of: 01/10/25 Subjective Subjective Narrative: Patient is seen and examined. He is resting comfortably. He is tolerating diet and continues to have bowel movement. Exam Vital Signs Temp Pulse Resp BP Pulse Ox O2 Del Method O2 Flow Rate 97.6 F 104 H 17 117/74 93 L Room Air 3 01/10/25 08:00 01/10/25 08:39 01/10/25 08:00 01/10/25 08:39 01/10/25 08:00 01/10/25 08:00 01/08/25 19:40 Constitutional Constitutional: no acute distress Routine Abdominal Exam Comments: Abdomen is mildly distended but soft. He has minimal tenderness to deep palpation, no rebound tenderness or peritonitis at this time Assessment & Plan Assessment Additional comments: His colonoscopy was unremarkable. Repeat CT scan showed 3 cm abscess not amenable to CT-guided drainage. Clinically significantly improved his WBC is normal now Plan Small abscess can be treated with oral antibiotics. Patient can be discharged and complete 10-day course of oral antibiotics
[2025-01-10] MEDS: FLUCONAZOLE 100 MG TABLET 200 MG PO (12:32)
--- NOTE | 2025-01-10 12:45 | ESPR_ITS ---
Documentation for date of: 01/10/25 Subjective Subjective Interval history: 3 cm fluid collection in the right lower abdomen is not amenable to IR drainage Terminal ileum is fine Tolerating diet Having bowel movement Exam Vital Signs Temp Pulse Resp BP Pulse Ox O2 Del Method O2 Flow Rate 98.0 F 106 H 18 139/84 H 96 Room Air 3 01/10/25 12:00 01/10/25 12:00 01/10/25 12:00 01/10/25 12:00 01/10/25 12:00 01/10/25 12:00 01/08/25 19:40 Objective Labs 01/10/25 05:21 01/10/25 05:21 Labs: Laboratory Results - last 24 hr 01/02/25 01/10/25 16:59 05:21 WBC 9.4 D RBC 4.19 L Hgb 10.9 L Hct 33.0 L MCV 79 L MCH 26.0 MCHC 33.0 RDW Std Deviation 42.0 Plt Count 431 Neut % (Auto) 72 Lymph % (Auto) 16 [place] % (Auto) 10 Eos % (Auto) 0 Baso % (Auto) 0 Neut # (Auto) 6.8 Lymph # (Auto) 1.5 [place] # (Auto) 1.0 H Eos # (Auto) 0.0 Baso # (Auto) 0.0 Immature Gran # (Auto) 0.10 H Absolute Nucleated RBC 0.00 Immature Gran % 1 H Nucleated RBC % 0 Sodium 133 L Potassium 3.5 D Chloride 100 Carbon Dioxide 22.2 Anion Gap 11 BUN < 5 L Creatinine 0.5 L Estim Creat Clear Calc 150.4 eGFR > 60 BUN/Creatinine Ratio 10 L Glucose 102 Calculated Osmolality 263 L Calcium 8.0 L Corrected Calcium 8.7 Phosphorus 2.5 Magnesium 1.8 Total Bilirubin 0.6 AST 12 ALT 14 Alkaline Phosphatase 162 H Total Protein 5.7 Albumin 3.1 L Globulin 2.6 Albumin/Globulin Ratio 1.2 Stool Calprotectin 1370 H Impressions Impression: No evidence of regional ileitis or inflammatory bowel disease on this current colonoscopy with intubation of the terminal ileum 3 cm fluid collection in the right lower abdomen not amenable to CT-guided drainage Continue current management Assessment & Plan A&P Narrative # Abnormal CT scan of the abdomen pelvis showing inflammation seen this terminal ileum with increased stool burden Differential diagnosis in the setting of regional ileitis is inflammatory versus infectious Because of the large stool burden: Needs to be flushed out Plan KUB GoLytely flush If patient starts vomiting with the GoLytely insert NGT to intermittent [place] suction Will follow the patient ANCA antibody CRP Other medical problems include Hemorrhagic CVA with left-sided motor weakness Seizure disorder Essential hypertension Diabetes mellitus type 2 Thank you very much for the opportunity to participate in the care of this patient Time Spent With Patient Time: Total time spent is greater than 50% in coordination of care (as documented) at patient's floor/unit and/or counseling patient:
[2025-01-10] MEDS: INSULIN LISPRO (AdmeLOG) 1 UNIT/0.01 ML UNIT SC (20:42)
[2025-01-10] MEDS: INSULIN DEGLUDEC 5 UNIT/0.05 ML (PER 5 UNITS) 36 UNIT SC (20:43)
[2025-01-11] VITALS (11 sets, daily range): BP systolic 113–132; BP diastolic 73–78; PULSE 96–102; RESP 16–18; TEMP 36.3–36.6; O2SAT 95; BMI 30.2
[2025-01-11] MEDS: CEFOXITIN 2 GM in SODIUM CHLORIDE 0.9% (Popper) 50 ML IV ×4 (00:46→17:49)
[2025-01-11] MEDS: METOCLOPRAMIDE INJ 5 MG/ML VIAL 2 ML 10 MG IVP ×4 (00:46→17:48)
[2025-01-11 06:03] LABS: Basophils # (Auto) 0.0 Thou/mm3 (0.0-0.2); Basophils % (Auto) 1 % (0-2.5); Eosinophils # (Auto) 0.0 Thou/mm3 (0.0-0.5); Eosinophils % (Auto) 1 % (0-10); Hematocrit 34.2 % (41.0-53.0); Hemoglobin 11.3 g/dL (13.5-16.0); Immature Granulocytes Auto 0.08 Thou/mm3 (0.00-0.00); Lymphocytes # (Auto) 1.4 Thou/mm3 (1.0-4.8); Lymphocytes % (Auto) 23 % (10-50); Mean Corpuscular HGB Conc 33.0 g/dl (31.0-37.0); Mean Corpuscular Hemoglobin 26.4 pg (25.0-35.0); Mean Corpuscular Volume 80 fL (80-100); Monocytes # (Auto) 0.8 Thou/mm3 (0.0-0.8); Monocytes % (Auto) 12 % (0-12); Neutrophils # (Auto) 3.8 Thou/mm3 (1.8-7.7); Neutrophils % (Auto) 62 % (37-80); Nucleated Red Blood Cell # 0.00 Thou/mm3 (0.00-0.00); Nucleated Red Blood Cell % 0 /100 WBC (0); Platelet Count 406 Thou/mm3 (140-440); RDW Standard Deviation 42.6 fL (35.1-43.9); Red Blood Count 4.28 Miln/mm3 (4.50-5.90); White Blood Count 6.1 Thou/mm3 (3.8-10.6)
[2025-01-11 06:24] LABS: Albumin, Serum 3.4 gm/dL (3.5-5.0); Anion Gap 9 (7-16); BUN/Creatinine Ratio 10 Ratio (12-20); Blood Urea Nitrogen 5 mg/dL (9-23); Calcium 8.4 mg/dL (8.3-10.6); Calcium (Corrected) 8.9 mg/dL (8.5-10.1); Carbon Dioxide 25.0 mMol/L (20.0-31.0); Chloride 100 mMol/L (98-107); Creatinine (Component) 0.5 mg/dL (0.6-1.3); Estimated Creatinine Clearance 150.4 mL/min (>60); Glucose 119 mg/dL (74-106); Magnesium 1.8 mg/dL (1.6-2.6); Osmolality,Calculated 266 (275-295); Phosphorous 2.9 mg/dL (2.4-5.1); Potassium 3.5 mMol/L (3.4-5.1); Sodium 134 mMol/L (136-145); eGFR > 60 See Note
[2025-01-11] MEDS: FLUCONAZOLE 100 MG TABLET 200 MG PO (09:02)
[2025-01-11] MEDS: LOSARTAN POTASSIUM 25 MG TABLET 50 MG PO (09:03)
[2025-01-11] MEDS: PANTOPRAZOLE 40 MG TABLET PO (09:03)
[2025-01-11] MEDS: INSULIN LISPRO (AdmeLOG) 1 UNIT/0.01 ML UNIT SC (11:42)
--- NOTE | 2025-01-11 12:00 | ESDS_ITS ---
<Statement entered by Barrera Downing MD - 01/11/25 18:20> A 54 year-old male with significant past medical history of hemorrhagic stroke, 2018 with residual left-sided weakness, SBO, hypothyroidism, hypertension, insulin-dependent diabetes mellitus, gangrenous cholecystitis s/p lap korina [06/2023] presented to the hospital from SNF with chief complaints of constipa tion and right lower quadrant pain for 4 days. Patient had extensive history of constipation. At the time of admission, noted to have sepsis secondary to ileitis for which he was admitted to the hospital and was treated with IV antibiotics and small bowel series. NG tube was inserted at 1 point to decompress the bowel in view of small bowel obstruction. Patient was treated with IV antibiotics during the hospital stay. Underwent colonoscopy with biopsy but with significant findings suggestive of IBD though Pro-Franki was significantly elevated. ANCA, antiprognostic, antimyeloperoxidase came back negative. Patient is using Keppra 1000 mg twice daily as a home medication but on history taking, patient endorsed that he never had seizures the medication was restarted after hemorrhagic stroke and is continued since then and does not follow-up with any neurologist and no episodes of seizures noted ever in his life. Dose of Keppra is decreased from thousand to 500 mg twice daily. Also ed ucated the patient to follow-up with neurologist. I have personally seen and examined the patient, agree with residents assessment and plan Patient plan of care was discussed with the attending physician, Dr. Conrad Downing, PGY2 Planned Discharge Date 01/11/25 DS: Providers Provider Date of admission: 12/26/24 15:18 Primary care physician: Physician No Primary/Family Admitting Provider: Lexie Pop DO Attending Provider on Admission: Valdo Martines MD Consults: 12/26/24 17:25 Consult to Gastroenterology Routine Comment: Ileitis and suspected IBD Consulting Provider: Loraine Oliveira 12/26/24 20:34 Referral Physical Therapy Routine Comment: Physician Instructions: 12/28/24 10:35 Consult to General Surgery Routine Comment: SBO Consulting Provider: Chu Degroot 12/29/24 11:17 Referral Registered Dietitian Urgent Comment: Would like to start patient on PPN please, thanks! Attending Provider on DC: Valdo Martines MD Discharging Provider: Patience Mckinnon, DS: Diagnosis Problem List Completed Was Problem List Reviewed/Reconciled?: Yes Hospital Course Hospital Course Hospital course: Summary: Patient is a 54 year old male with PMH of 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 Secondary to severe terminal ileitis, patient developed SBO on repeat imaging. Consulted surgeon Dr. Degroot who recommended decompression via NG tube. Patient required 7 day course of NG tube decompression, so patient was started on PPN by day 4. Was discontinued when patient started having bowel movements and tolerating clear liquid diet. Patient was treated with IV Zosyn for SBP prophylaxis (12/26-12/31), followed by IV CFX 1g and IV metronidazole 500 mg BID (12/31-01/02), with improvement of WBCs. Due to increase in WBC, was restarted on IV cefoxitin on 01/07-01/11 with improvement. Patient has been having regular bowel movements on metoclopramide and Senna. Also consulted GI Dr. Oliveira due to concern for inflammatory bowel disease. Patient elevated CRP and ESR on admission. ANCA, anti-proteinase 3, anti myeloperoxidase all negative. Stool calprotectin elevated at 1370. Once SBO resolves, moved forward with colonoscopy; however only visualized mildly erythematous mucosa and pathology was negative for Crohn's disease, colitis, or dysplasia. Repeat CT abdomen pelvis 01/10 showed 3 cm abscess in right lower abdomen, decreasing in size. Was not amendable to drainage, will treat with 10 day course of ciproflozacin 500 mg and Flagyl with close follow up with surgeon Dr. Degroot. Of note, patient also grew Kaila on urine culture, likely secondary to uncontrolled diabetes, and developed dysuria prior to discharge. Patient was started on fluconazole 200 mg daily, recommend to continue outpatient. Patient was medically stable upon discharge. ED Course: -Initial vitals: BP 158/101, HR 137, RR 20, temp 98.4F -> 104 F, 97% RA -Labs: WBC 18.0, Hgb 16.9, PT 12.4, sodium 137, potassium 4.0, bicarb 19.8, glucose 366, lactate 6.0, corrected calcium 10.2, total bilirubin 1.4, AST& ALT WNL, alk phos 127, troponin WNL, BNP 149, procalcitonin 3.1, beta hydroxybutyrate 0.7 EKG: sinus tachycardia with no ST and T wave changes -Imaging: CT AP with contrast shows severe inflammation of terminal ileal segment with concern for ileitis and abdominal wall urinary bladder with irregular wall thickening inferiorly and posteriorly, c/f cystitis Discharge Recommendations: - Please take ciprofloxacin 500mg by mouth twice a day and metronidazole 500mg by mouth twice a day for intra-abdominal abscess - Your Keppra dose was halfed to 500mg by mouth twice a day - ask your PCP if you can safely stop this medication as you might not need it for post-CVA seizure - Please take fluconazole 200 mg by mouth daily for urinary tract infection for 7 more days - Stop taking Clonidine for blood pressure - Continue all other home medications as prescribed - Follow-up with Dr. Degroot within the next 2 weeks for the intra-abdominal abscess - Please follow-up with your PCP within 1 week of discharge - or follow-up at the [facility] [address] [place] [address] - If your symptoms worsen or if you develop new chest pain, shortness of breath, severe abdominal pain or bleeding - please come back to the ED immediately. Hospital Diagnoses: #Sepsis, resolved 2/2 #Terminal ileitis, infectious versus inflammatory #c/f intra-abdominal abscess #Leukocytosis, reactive versus infectious, improving #HAGMA, resolved #Lactic acidosis, resolved #SBO, resolved #Hx chronic constipation #Hx SBO #Insulin dependent DM #Kaila albicans urinary infection #Cystitis, resolved #Hypertension #Hypokalemia #Hyponatremia #Hypochloridemia #Hx hemorrhagic CVA (2018) #Stroke prophylaxis Disposition: Safe discharge to [facility]. Patient plan of care was discussed with the resident, Dr. Downing, and attending physician, Dr. Martines. Patience Mckinnon, PGY-1 Time Spent with Patient Time attestation: Total time spent providing and/or coordinating discharge services: Time spent: Greater than 30 minutes Exam Vital Signs Temp Pulse Resp BP Pulse Ox O2 Del Method O2 Flow Rate 97.6 F 98 16 124/78 95 Room Air 3 01/11/25 11:47 01/11/25 11:47 01/11/25 11:47 01/11/25 11:47 01/11/25 11:47 01/11/25 11:47 01/08/25 19:40 Narrative Exam Physical Exam General: Awake and in no acute distress. Conversational and non-toxic appearing. Lying comfortably in bed. HEENT: Normocephalic, atraumatic, mucous membranes moist. Heart: Regular rate and rhythm, normal S1 and S2, no murmurs. Lungs: Clear to auscultation with no wheezing or crackles. Abdomen: Soft, mildly distended, tenderness of right abdomen, positive bowel sounds. Neurologic: Alert and oriented x3, weakness in left half of the body (chronic). Extremities: No edema. Scabbed scratch estes on left lower extremity. Skin: No rash or ecchymoses Discharge Plan Plan Patient Disposition: [facility]fer [facility] ([facility]) Patient condition on transfer: Stable Care Plan Goals: Please take ciprofloxacin 500mg by mouth twice a day and metronidazole 500mg by mouth twice a day for intra-abdominal abscess Your Keppra dose was halfed to 500mg by mouth twice a day - ask your PCP if you can safely stop this medication as you might not need it for post-CVA seizure Please take fluconazole 200 mg by mouth daily for urinary tract infection for 7 more days Stop taking Clonidine for blood pressure Continue all other home medications as prescribed Follow-up with Dr. Degroot within the next 2 weeks for the intra-abdominal abscess Please follow-up with your PCP within 1 week of discharge - or follow-up at the [facility] [address] [place] [address] If your symptoms worsen or if you develop new chest pain, shortness of breath, severe abdominal pain or bleeding - please come back to the ED immediately. Prescriptions/Referrals Prescriptions/Med Rec: New ciprofloxacin [Cipro] 500 mg/5 mL suspension,microcapsule recon 500 mg PO BID 5 Days Qty: 50 0RF metronidazole 500 mg tablet 500 mg PO BID 5 Days Qty: 10 0RF levetiracetam [Keppra] 500 mg tablet 500 mg PO BID 30 Days Qty: 60 0RF fluconazole 100 mg Tablet 200 mg PO QDAY 7 Days Qty: 14 0RF Continued bisacodyl [Dulcolax (bisacodyl)] 10 mg Suppository 10 mg GA Q72H PRN (Reason: Constipation) Rx Instructions: If MOM ineffective cholecalciferol (vitamin D3) 3,000 unit Tablet 25 mcg PO QDAY insulin glargine 100 unit/mL Solution 31 unit SUB-Q QPM Rx Instructions: FSBG prior to administration; Hold if blood sugar<100 Notify MD <70 or >400 Fleet Enema 19-7 gram/118 mL Enema 118 ml GA Q72H PRN (Reason: Constipation) Rx Instructions: If MOM/Dulcolax supp ineffective folic acid 1 mg Tablet 1 mg PO QDAY lactulose 10 gram/15 mL Solution 10 mg PO QDAY PRN (Reason: Constipation) Rx Instructions: Hold for loose stools losartan 50 mg Tablet 50 mg PO QDAY Rx Instructions: hold if SBP <100, DBP <60, HR <60 sennosides-docusate sodium 8.6-50 mg Tablet 2 tab PO BID PRN (Reason: Constipation) melatonin 3 mg Tablet 3 mg PO HS magnesium hydroxide [Milk of Magnesia] 400 mg/5 mL Suspension 30 ml PO Q72H PRN (Reason: Constipation) Patient Comments: if no bm for three days Rx Instructions: If no BM for 3 consecutive days multivitamin with minerals Tablet 1 tab PO QDAY acetaminophen [Tylenol] 325 mg Tablet 2 tab PO Q6HR PRN (Reason: Pain) Novolin R Regular U100 Insulin 100 unit/mL Solution 4 unit SUBCUT TID Novolin R Regular U100 Insulin 100 unit/mL Solution See Rx Instructions .ROUTE .COMPLEX Rx Instructions: per sliding scale amlodipine 5 mg Tablet 10 mg PO QDAY Qty: 30 0RF Discontinued clonidine HCl 0.3 mg Tablet 0.3 mg PO TID Rx Instructions: hold if SBP <100, DBP <60, HR <60 levetiracetam [Keppra] 1,000 mg tablet 1,000 mg PO BID Qty: 7 0RF Rx Instructions: For Seizures Referrals: Chu Degroot MD [Physician, General Surgery] No Primary/Family,Physician [Primary Care Provider] Patient/Caregiver Discharge Instructions Education Materials: ED Abscess Antibiotic ... Print Language: Danish Stand Alone Forms: [facility]ana Award Info., Patient Portal Info Letter Discharge Order Discharge Orders: Discharge (Routine); Ordered 01/11/25 Ordered By: Dariel Calvillo Quality Discharge Quality Measures VTE prophylaxis MD Attestestation MD Attestation I have examined the patient, reviewed labs and imaging findings, discussed the case with the resident(s), and reviewed entered orders. I agree with the plan of care as outlined in this note. Time Spent: [address] Conrad MD
--- NOTE | 2025-01-11 13:20 | PC.NURSE ---
@ [id number] Called [facility] and report given to nurse Wyman.
--- NOTE | 2025-01-11 13:42 | PC.SS ---
SS has setup gurney transportation with Jovita from [facility] for 2pm to [facility] .? Ref# [id number].? SS has requested [facility].? Per [facility] territory account representative she will set transport for 2:30pm.? SS has sent patient?s facesheet and ambulance form to [facility] using [employer] SS has spoken to Eric from [facility] who has placed pt on will call list until she has been contacted by [facility]. Bedside nurse is aware. Can Kulkarni is aware. Radha FLORES is aware. Princess from [facility] is aware.
--- NOTE | 2025-01-11 16:18 | PC.SS ---
SS received call from [facility] at [facility] explaining she has been contacted by [facility] and transport is set for 4pm to [facility]. SS received another call from [facility] at [facility] who states due to [place] city [place] transport is arranged for 5:30pm. Princess at [facility] is aware. Radha FLORES is aware. Charge nurseAngélica is aware.
== END 2025-01-11 18:15 | disposition skilled nursing facility (03) | DRG 720 ==
LOC: SERX 14:47 → SERHOLD 16:13 → S2NX 12-27 05:40 → S3SX 12-30 19:53
PROVIDERS: Internal Medicine; Specialist; Admitting Provider Internal Medicine; Emergency Provider Emergency Medicine; Visit Provider Student in an Organized Health Care Education/Training Program
PROC: 0DJD8ZZ Inspection of Lower Intestinal Tract, Via Natural or Artificial Opening Endoscopic (ICD-10-PCS; CPT 45378; principal; 2025-01-08 17:00)
DX: A41.9 Sepsis, unspecified organism (principal); I69.254 Hemiplegia and hemiparesis following other nontraumatic intracranial hemorrhage affecting left non-dominant side; I10 Essential (primary) hypertension; E11.9 Type 2 diabetes mellitus without complications; G40.909 Epilepsy, unspecified, not intractable, without status epilepticus; A09 Infectious gastroenteritis and colitis, unspecified; Z79.4 Long term (current) use of insulin; K59.00 Constipation, unspecified; D64.9 Anemia, unspecified; E03.9 Hypothyroidism, unspecified; E11.65 Type 2 diabetes mellitus with hyperglycemia; E87.1 Hypo-osmolality and hyponatremia; E87.6 Hypokalemia; E87.8 Other disorders of electrolyte and fluid balance, not elsewhere classified; F03.90 Unspecified dementia, unspecified severity, without behavioral disturbance, psychotic disturbance, mood disturbance, and anxiety; E87.20 Acidosis, unspecified; N30.91 Cystitis, unspecified with hematuria; B37.9 Candidiasis, unspecified; K65.1 Peritoneal abscess; K56.7 Ileus, unspecified; Z79.899 Other long term (current) drug therapy; K50.012 Crohn's disease of small intestine with intestinal obstruction
CPT/HCPCS: 36415; 74018; 74177; 74250; 76705; 80053; 80061; 80069; 81001; 82010; 82728; 83540; 83550; 83605; 83690; 83735; 83880; 83993; 84100; 84145; 84439; 84443; 84484; 85025; 85610; 85652; 85730; 86021; 86036; 86140; 87015; 87040; 87045; 87046; 87077; 87081; 87086; 87106; 87186; 87205; 87329; 87449; 87899; 93005; 93225; 96361; 96365; 96366; 96372; 96375; 96376; 97161; 99285; A4217; A4649; J0131; J0612; J0694; J0696; J1171; J1200; J1644; J1756; J1815; J1953; J2250; J2270; J2405; J2470; J2543; J2765; J3010; J3475; J3480; J3490; J7030; J7050; J7120; J7999; Q9963; Q9967; A9270; J1836